=== PATIENT | female | born 1975 | race Caucasian/White ===

== ENCOUNTER 2017-03-27 14:32 | Inpatient (IN) | payer MEDICAID, OTHER ==
[~2017-03-27] VITALS: Ht 170.2 cm; Wt 99.9 kg
[~2017-03-27 14:32] MED LIST: AMLO5TAB2 PO; CELE-19 PO; CELE20TA PO; Flexeril PO; GABA-283 PO; HYDR-3713 PO; HYDR12.55 PO; LINZ290C PO; LISI10TA2 PO; NICOTINE 21MG/24HR 1 EA TRANSDERMAL TD SCH; NORV5TAB PO; PROZ20CA11 PO; SYNT50TA PO; TRAZ50TA4 PO
[2017-03-27] MEDS ORDERED: LISIPOW (15:28)
[2017-03-27] MEDS ORDERED: FLUO20CA9 (15:28)
[2017-03-27] MEDS ORDERED: WELL100T2 PO (15:29)
[2017-03-27 16:32] LABS: MEAN CORPUSCULAR HEMOGLOBIN 32.5 pg (27.0-33.0); MEAN CORPUSCULAR HGB CONC 33.8 g/dl (32.0-36.5); MEAN CORPUSCULAR VOLUME 96.1 fl (80.0-96.0); RED CELL DISTRIBUTION WIDTH 13.8 % (11.5-14.5); WHITE BLOOD COUNT 9.5 K/mm3 (4.0-10.0)
[2017-03-27 16:41] LABS: ALBUMIN 3.9 GM/DL (3.2-5.2); ALBUMIN/GLOBULIN RATIO 1.05 (1.00-1.93); ALKALINE PHOSPHATASE 80 U/L (45-117); ALT/SGPT 23 U/L (12-78); ANION GAP 11 MEQ/L (8-16); AST/SGOT 19 U/L (15-37); BILIRUBIN,DIRECT 0.2 MG/DL (0.0-0.2); BILIRUBIN,TOTAL 0.8 MG/DL (0.2-1.0); BLOOD UREA NITROGEN 9 MG/DL (7-18); CALCIUM LEVEL 8.4 MG/DL (8.5-10.1); CARBON DIOXIDE LEVEL 25 MEQ/L (21-32); CHLORIDE LEVEL 105 MEQ/L (98-107); CREATININE FOR GFR 0.72 MG/DL (0.55-1.02); GLOMERULAR FILTRATION RATE > 60.0 (>58); GLUCOSE, FASTING 92 MG/DL (70-105); POTASSIUM SERUM 3.3 MEQ/L (3.5-5.1); SODIUM LEVEL 141 MEQ/L (136-145); TOTAL PROTEIN 7.6 GM/DL (6.4-8.2)
[2017-03-27] MEDS ORDERED: GABA-282 PO (17:31)
[2017-03-27] MEDS ORDERED: LISI20TA PO (17:31)
[2017-03-27] MEDS ORDERED: ZALE10CA PO (17:31)
[2017-03-27] MEDS ORDERED: FLUO20CA9 PO (17:31)
[2017-03-27] MEDS ORDERED: BUPR100T3 PO (17:31)
[2017-03-27] MEDS ORDERED: METH-107 PO (17:31)
[2017-03-27] MEDS ORDERED: LINZ290C PO (17:31)
[2017-03-27] MEDS ORDERED: ACETAMINOPHEN TAB 650MG DOSE (2X325MG) PO PRN (18:15)
[2017-03-27] MEDS ORDERED: MAALOX 30 ML SUSP *UDC PO PRN (18:15)
[2017-03-27] MEDS ORDERED: MOM 30ML SUSPENSION UDC PO PRN (18:15)
[2017-03-27] MEDS ORDERED: traZODone 50 MG TAB PO PRN (18:15)
[2017-03-27] MEDS ORDERED: cloNIDine 0.2 MG TAB PO ONE (18:30)
[2017-03-27] MEDS ORDERED: ALPRAZolam 0.25 MG TAB PO ONE (19:45)
[2017-03-27] MEDS ORDERED: ALPRAZolam 0.5 MG TAB PO ONE (19:45)
[2017-03-27] MEDS: buPROPion (WELLBUTRIN SR) 100 MG SR TAB PO SCH (21:00)
[2017-03-27 21:25] VITALS: BP 120/78
[2017-03-27] MEDS ORDERED: cloNIDine 0.1 MG TAB PO PRN (23:30)
[2017-03-28 06:36] VITALS: BP 120/75
[2017-03-28] MEDS: FLUoxetine 20 MG CAP PO SCH (08:41)
[2017-03-28] MEDS: buPROPion (WELLBUTRIN SR) 100 MG SR TAB PO SCH ×2 (08:41→21:00)
[2017-03-28] MEDS ORDERED: POTASSIUM CHLORIDE 10 MEQ SR TABLET PO ONE (12:00)
[2017-03-28] MEDS ORDERED: TIZA4CAP3 PO (12:13)
[2017-03-28] MEDS ORDERED: KETO10TAB PO (12:13)
[2017-03-28] MEDS ORDERED: REXU1TAB2 PO (12:13)
[2017-03-28 18:00] VITALS: BP 132/83
[2017-03-28 21:28] LABS: CONTROL LINE UCG INT CTR LINE PRESENT
[2017-03-29 06:51] VITALS: BP 158/96
[2017-03-29] MEDS: FLUoxetine 20 MG CAP PO SCH (08:27)
[2017-03-29] MEDS: buPROPion (WELLBUTRIN SR) 100 MG SR TAB PO SCH ×2 (08:27→21:08)
--- NOTE | 2017-03-29 08:47 | MHHPE ---
DATE OF ADMISSION: 03/27/2017 LEGAL STATUS AT ADMISSION: 9.39 legal status. CHIEF COMPLAINT: "I don't need to be here." HISTORY OF PRESENT ILLNESS: 41-year-old female with history of depression, admitted to our unit on a 9.39 legal status. According to the chart, patient was brought to the emergency department by the [facility] Police. It is stated that she posted on Facebook "I'm gone, Happy Mother's Day alone." The patient's friends were concerned about her and they called the police for her to be evaluated in our emergency department. The patient stated at the emergency department that she was not feeling well and called her ex- "who came to get our son." She denied having any suicidal thought and stated that "I was not planning to hurt myself." Some of the concerns before admission was the fact that her boyfriend "kicked her out on Wednesday," also the fact that she has been off work the last week due to the increased depression and the fact that she was started on a new medication for depression, the fact that she has poor support. She stated that she is not close to her parents or siblings and that her brother killed himself by self-inflicted gunshot wound. Her evaluation in the unit is difficult since patient is angry and frustrated and lost control in my office and started yelling. She expressed her anger, stating "I'm not going to take any medication, I'm not going to speak to anybody." I tried to get some of the symptoms, but she has tendency to deny or minimize any of them. Therefore, at this point, patient is considered not reliable. No support person has been available to take collateral information. During the interview, although she was angry, anxious, frustrated, and labile, there was no evidence of psychotic symptoms, no auditory or visual hallucinations were noted. PAST MEDICAL HISTORY: Patient has been diagnosed with hypertension and herniated disc. PAST PSYCHIATRIC HISTORY: Patient was admitted to our service in July 2015 after an overdose. FAMILY HISTORY: Patient denies any psychiatric family history but it is reported that her brother committed suicide by gunshot wound. SUBSTANCE ABUSE HISTORY: Patient denies any current or past problems with drugs or alcohol. SOCIAL HISTORY: Patient was not cooperative with providing information, however chart review shows that the patient was raised by her father, that her parents were at age 1, that she dropped out of school but then she obtained her GED. As stated above, she recently broke up with her boyfriend. She has been off work due to her depression for several days. She from her in 2012. She has three children and has no legal problems. REVIEW OF SYSTEMS: CONSTITUTIONAL: No weight loss, fever, chills, weakness, or fatigue. HEENT: No visual loss, blurry vision, double vision, or yellow sclerae. No hearing loss, sneezing, congestion, runny nose, or sore throat. CARDIOVASCULAR: No chest pain, chest pressure, chest discomfort, palpitations, or edema. RESPIRATORY: No shortness of breath, cough, or sputum. MUSCULOSKELETAL: Denies muscle, back pain, joint pain, or stiffness. Patient was not fully cooperative with exam. PHYSICAL EXAMINATION: As per physician healthcare administrative assistant. LABORATORY DATA: At admission: CBC was unremarkable, red blood cells of 3.97, MCV of 96.1. CMP showed a potassium of 3.3, calcium of 8.4, rest were unremarkable. test was canceled. Blood alcohol level was negative. MENTAL STATUS EXAMINATION: Patient is dressed in [facility]. Patient is not fully cooperative. She is angry, frustrated, anxious, and labile. Speech is coherent. Has poor eye contact. Mood is depressed and anxious. Affect is labile and restricted. Patient is oriented to time, place, person, and situation. Attention, concentration, and memory are fair. Patient does not have auditory or visual hallucinations. Patient does not have paranoid, persecutory, somatic, grandiose, or jew delusions. Patient is denying any suicidal or homicidal ideation, however she is minimizing in order to be discharged. Judgment and insight are poor. DIAGNOSES: AXIS I: Major depressive disorder. AXIS II: Deferred. AXIS III: Hypertension, herniated disc. INITIAL TREATMENT PLAN: Patient was admitted on a 9.39 legal status. Complete history was obtained. With her permission, family will be contacted and database will be expanded. Her medication regimen will be reviewed and changed accordingly. She will be provided with protected environment. She will be treated with individual, group, and milieu therapies. She will also receive supportive psychoeducation. Discharge planning will commence immediately. Length of stay will be between 5-7 days. Outpatient followup will be strongly recommended. The treatment plan will focus initially on depression, risk for suicide, and poor impulse control.
[2017-03-29] MEDS: LISINOPRIL 20 MG TAB PO SCH (09:00)
[2017-03-29] MEDS: hydroCHLOROthiazide 12.5 MG CAPSULE PO SCH (09:00)
--- NOTE | 2017-03-29 11:59 | HPEPDOC ---
Medical History and Physical Date of Admission March 27, 2017 at 16:47 History and Physical PCP: [facility] (Former[facility]) ATTENDING: Dr. Fuentes Gallegos HPI: 41yoF admitted to [facility] for unspecified depressive disorder, being medically examined today. No acute medical complaints today. Denies any fevers, chills, weakness, fatigue, EUCEDA, CP, SOB, cough, palpitations, abdominal pain, N/V /D or changes in bowel or bladder habits. PMHx: HTN H/O Herniated lumbar disc after fall on ice 2012 chronic pain Fibromyalgia Depression H/O SI Chronic constipation H/O urinary retention, relieved with back surgery. H/O Bradycardia seen by Cardiology in the past. Stress Study unremarkable. H/O Hypothyroidism PSHX: Uterine ablation Hysterectomy Lower back surgery Cystoscopy SOCHX: Resides in: [facility] Marital Status: single Kids: 3 kids Employment: Works at [employer] Tobacco use: Denies ETOH: Denies Illicit Drugs: Denies IV Drug Use: Denies Tattoos done unprofessionally: Denies FAMHX: Mother: Alive, Dementia, DM, HTN Father: Alive, Dementia, HTN Siblings: 1 sister Alive, well Children: Alive, well Unexpected deaths due to medical reasons: None. ROS: As noted in HPI, otherwise 11pt ROS of systems reviewed and unremarkable. Hysterectomy 2 years ago, LMP then. PE: GEN: 39yoF, appears stated age. Well-nourished, well developed. No acute distress. Alert and oriented x 3. Pleasant, interactive. HEENT: Normocephalic, atraumatic. Pupils are equal, round, and reactive to light. Extraocular movements are intact. No nystagmus appreciated. Sclera are nonicteric. Conjunctiva without injection. Nose midline. No facial asymmetry. Moist mucous membranes. Dentition fair. Pharynx pink and moist, no cobblestoning. Neck supple, trachea midline. No lymphadenopathy or thyromegaly appreciated. CHEST: Regular rate and rhythm, +S1, +S2 LUNGS: Clear to auscultation bilaterally. No wheezes, rales, or rhonchi. Breathing appears symmetric and easy. Patient is speaking in full sentences. No accessory muscle use. ABD: Round, soft, non-tender, non-distended. +Bowel sounds throughout. No rebound or guarding. No costovertebral angle tenderness. EXT: Pulses 2+ bilaterally dorsalis pedis and radial. No lower extremity edema appreciated. SKIN: [place], dry, warm. Capillary refill <2sec. No rashes. NEURO: Alert and oriented x 3. Cranial nerves III-XII are intact. No focal deficits appreciated. EKG: pending A&P: 41yoF admitted to [facility] for depressive disorder 1. Psych. Plan per Psychiatry. EKG pending. 2. Chronic constipation. Continue Linzess. 3. Chronic back pain. Patient follows as outpatient with pain management, Dr Cyr. 4. Follow up with PCP. 5. Hypertension. Continue lisinopril 20 mg daily, hydrochlorothiazide 12.5 mg by mouth daily. 6. Chronic pain. Continue Gabapentin 900 mg 3 times a day. Methocarbamol 500 mg 3 times a day as needed. 7. H/O Bradycardia. Stable. HR trend 63-70bpm. 8. Safety aid Cortney present throughout exam. Vital Signs Vital Signs Date Time Temp Pulse Resp B/P (MAP) Pulse Ox O2 Delivery O2 Flow Rate FiO2 03/29/17 07:00 158/96 03/29/17 06:51 97.3 67 18 03/27/17 21:25 95 Room Air Laboratory Data Labs 24H Laboratory Tests 2 03/28/17 21:11: Urine Test NEGATIVE CBC/BMP Item Value Date Time Urine Test NEGATIVE 03/28/17 2111 Item Value Date Time White Blood Count 9.5 K/mm3 03/27/17 1600 Red Blood Count 3.97 M/mm3 L 03/27/17 1600 Hemoglobin 12.9 g/dl 03/27/17 1600 Hematocrit 38.1 % 03/27/17 1600 Mean Corpuscular Volume 96.1 fl H 03/27/17 1600 Mean Corpuscular Hemoglobin 32.5 pg 03/27/17 1600 Mean Corpuscular Hemoglobin Concent 33.8 g/dl 03/27/17 1600 Red Cell Distribution Width 13.8 % 03/27/17 1600 Platelet Count 273 k/mm3 03/27/17 1600 Sodium Level 141 MEQ/L 03/27/17 1600 Potassium Level 3.3 MEQ/L L 03/27/17 1600 Chloride Level 105 MEQ/L 03/27/17 1600 Carbon Dioxide Level 25 MEQ/L 03/27/17 1600 Anion Gap 11 MEQ/L 03/27/17 1600 Blood Urea Nitrogen 9 MG/DL 03/27/17 1600 Creatinine 0.72 MG/DL 03/27/17 1600 Glomerular Filtration Rate > 60.0 03/27/17 1600 Fasting Glucose 92 MG/DL 03/27/17 1600 Calcium Level 8.4 MG/DL L 03/27/17 1600 Total Bilirubin 0.8 MG/DL 03/27/17 1600 Direct Bilirubin 0.2 MG/DL 03/27/17 1600 Aspartate Amino Transf (AST/SGOT) 19 U/L 03/27/17 1600 Alanine Aminotransferase (ALT/SGPT) 23 U/L 03/27/17 1600 Alkaline Phosphatase 80 U/L 03/27/17 1600 Total Protein 7.6 GM/DL 03/27/171599 Albumin 3.9 GM/DL 03/27/171599 Albumin/Globulin Ratio 1.05 03/27/171599 Thyroid Stimulating Hormone (TSH) 2.040 uIU/ML 03/27/17 1600 Home Medications Scheduled (Bupropion HCl Sr) 100 Mg Tab, 200 MG PO DAILY for DEPRESSION (Lisinopril/Hydrochlorothi 20-12.5 mg) 1 Tab Tab, 1 TAB PO DAILY Brexpiprazole (Rexulti) 0.5 Mg Tab, 0.5 MG PO DAILY for DEPRESSION Fluoxetine Hcl (Fluoxetine HCl) 20 Mg Cap, 40 MG PO DAILY Gabapentin (Gabapentin) 300 Mg Cap, 900 MG PO TID Linaclotide Base (Linzess) 290 Mcg Cap, 290 MCG PO DAILY Scheduled PRN (Zaleplon) 10 Mg Cap, 10 MG PO QHS PRN for SLEEP Ketorolac Tromethamine (Ketorolac Tromethamine) 10 Mg Tab, 10 MG PO Q6HP PRN for HEADACHE Methocarbamol (Methocarbamol) 500 Mg Tab, 500 MG PO TID PRN for SPASMS Tizanidine Hydrochloride (Tizanidine HCl) 4 Mg Cap, 4 MG PO TIDP PRN for SPASMS Allergies Coded Allergies: No Known Allergies (Unverified , 07/17/15) Dominique Park March 29, 2017 11:59
--- NOTE | 2017-03-29 14:21 | MHIPNPDOC ---
[facility] Progress Note Progress Note DATE OF SERVICE: 03/29/17 HISTORY: Patient is 41-year-old female with history of depression who was brought into the emergency department by the police after posting on Facebook "I 'm gone, happy Mother's Day alone." Patient also apparently recently underwent psychotropic medication change from outpatient provider, had asked her ex- to warp picker her 14 yo son from her home due to patient reportedly not feeling well, was recently "kicked out" of her boyfriend's house, has been off work for the past week due to increased symptoms of depression, brother committed suicide by way of gunshot, and has limited support. Patient denies having plan or intent to harm self, indicates friends interpretation of Facebook posting was a "taken the wrong way." Patient was last hospitalized [facility] inpatient in July 2015 for suicide attempt via drug overdose. Industrial Insulator met with patient today to assess treatment progress on inpatient unit. Patient remains irritable, becomes hostile toward poem writer, stands up and walks out of assessment prior to completion. Patient refused to take her Prozac and Wellbutrin this morning noting, "I doctor just added another medication because his medications were only partially effective so why should I take those medications affect don't have the other medication here." Industrial Insulator encouraged patient to facilitate the retrieval of medications from home which are not available in the inpatient environment, also encourage patient to take medications which were available to her, patient declines. Patient denies symptoms of anxiety and depression, denies suicidal and homicidal ideation, denies audiovisual hallucinations, denies urge to engage in self-injurious behavior. Patient provides monosyllabic responses, states clearly she is not happy about being in the hospital, denies challenges with sleep and appetite, indicates energy level, concentration and focus are normal. VITAL SIGNS: See below. Elevated, PA is addressing NEW TEST RESULTS: No new results. Hypertension history of herniated lumbar disc after fall in 2013, chronic pain, fibromyalgia, chronic constipation, history of urinary retention, history of bradycardia, seen by cardiology in past, study unremarkable, patient is asymptomatic. History of hypothyroidism Surgical history , uterine ablation, hysterectomy, lower back surgery, cystoscopy Labs on admission indicated elevated MCV and low RBC, potassium, calcium HCG negative EKG pending CURRENT MEDICATIONS: See below. MENTAL STATUS EXAMINATION: 41-year-old female who is uncooperative and irritable , makes poor eye contact, appears disheveled, dressed in hospital clothing, ambulates with steady gait, appears stated age Speech: Is of normal rate, rhythm, volume, coherent, spontaneous Language skills are adequate. Thought processes including: Linear, logical, goal-directed. Thought content: Rational, logical, no tangentiality noted, no paranoia Abstract reasoning, and computation: Appear within normal limits Description of associations: Intact. Description of abnormal or psychotic thoughts: Denies suicidal or homicidal ideation, denies auditory or visual hallucinations, does not appear to be responding to internal stimuli, does not endorse bizarre paranoid ideation, denies any preoccupation with violence or obsessions. Judgment: Poor Insight: Poor Orientation: A and O 3. Recent and remote memory: Appears intact. Attention span and concentration: Adequate. Language: Adequate. Fund of knowledge: Appears adequate. Mood: Not happy that I'm here. Patient appears anxious and depressed Affect: Blunted. DIAGNOSES: Major depressive disorder ASSESSMENT: Patient appears to be adjusting to unit slowly, has attended some groups, isolates to her room at other times, engages in very little socialization with staff or peers, is refusing to take psychotropic medications , and is otherwise being treatment noncompliance, became angry with poem writer during assessment and got up and walked out of the room. Patient has been able to maintain behavioral control, has exhibited no physical aggression, was strongly encouraged to be medication compliant and was offered assistance in making arrangements to have medication from home brought in which is not offered in the inpatient environment. Patient denies current suicidal or homicidal ideation and is able to verbalize how to access supportive services on the unit if needed. We'll continue to encourage patient to take her medications and we'll monitor for compliance and side effects. Will also evaluate patient's safety, resolution of suicidal ideation, discharge readiness. Patient indicates from prepared she would like to discharge back to home and resume outpatient psychotherapy and medication management services. MANAGEMENT PLAN: Encourage patient to consider restarting psychotropic medications in effort to address symptoms Maintain safety precautions Patient to attend groups and participate in unit programming to develop coping strategies Engage patient in discharge planning process and arrange meeting with command to evaluate safe discharge planning when appropriate Patient to follow up with PCM upon discharge TIME SPENT: 35 minutes. Vital Signs Vital Signs Date Time Temp Pulse Resp B/P (MAP) Pulse Ox O2 Delivery O2 Flow Rate FiO2 5/15/17 07:00 158/96 03/29/17 06:51 97.3 67 18 03/27/17 21:25 95 Room Air Laboratory Data 24H Labs Laboratory Tests 2 03/28/17 21:11: Urine Test NEGATIVE Current Medications Current Medications Acetaminophen (Tylenol Tab) 650 mg Q6HP PRN PO HEADACHE or DISCOMFORT; Start at 18:15; Stop 04/26/17 at 18:14 Al Hydrox/Mg Hydrox/Simethicone (Mylanta) 30 ml Q4HP PRN PO HEARTBURN/ INDIGESTION; Start 03/27/17 at 18:15; Stop 04/26/17 at 18:14 Bupropion HCl (Wellbutrin Sr) 100 mg BID PO ; Start 03/27/17 at 21:00; Stop 10/31 at 20:59 Clonidine HCl (Catapres) 0.1 mg Q6HP PRN PO SBP> 150 OR DBP > 95 Last administered on 03/29/17t 07:00; Start 03/27/17 at 23:30; Stop 04/26/17 at 23:29 Fluoxetine HCl (PROzac) 40 mg DAILY PO ; Start 03/28/17 at 09:00; Stop 04/27/17 at 08:59 Gabapentin (Neurontin) 900 mg TID PO ; Start 03/29/17 at 16:00; Stop 04/28/17 at 15:59 Home Med (Med Rec Complete!) ASDIRECTED XX ; Start 03/27/17 at 17:45; Stop at 17:45; Status DC Hydrochlorothiazide (Hydrodiuril) 12.5 mg DAILY PO ; Start 03/29/17 at 09:00; Stop 04/28/17 at 08:59 Lisinopril (Prinivil) 20 mg DAILY PO ; Start 03/29/17 at 09:00; Stop 04/28/17 at 08:59 Magnesium Hydroxide (Milk Of Magnesia) 30 ml DAILYPRN PRN PO CONSTIPATION; Start 03/27/17 at 18:15; Stop 04/26/17 at 18:14 Methocarbamol (Robaxin) 500 mg TID PRN PO SPASMS; Start 03/29/17 at 12:45; Stop 04/28/17 at 12:44 Miscellaneous (Unresolved Patient Own Med Order) SEE LABEL COMMENTS UNRESOLVED XX ; Start 03/29/17 at 00:01; Stop 04/28/17 at 00:00 Nicotine (Nicoderm Cq 21mg) 1 patch DAILY TD ; Start 03/27/17 at 09:00; Stop at 23:57; Status DC Patient Own Medication (Patient'S Own Med) 1 ea DAILY PO ; Start 03/30/17 at 09: 00; Stop 04/29/17 at 08:59; Status UNV Trazodone HCl (Desyrel) 50 mg QHSP PRN PO INSOMNIA; Start 03/27/17 at 18:15; Stop 04/26/17 at 18:14 Allergies Coded Allergies: No Known Allergies (Unverified , 07/17/15) Cammie Aragon March 29, 2017 14:21
[2017-03-29] MEDS: GABAPENTIN 300 MG CAP PO SCH ×2 (16:00→21:09)
[2017-03-29] MEDS: METHOCARBAMOL 500 MG TAB PO PRN (17:49)
--- NOTE | 2017-03-29 18:03 | ECGEPIP ---
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
[2017-03-30 06:32] VITALS: BP 145/85
[2017-03-30] MEDS: FLUoxetine 20 MG CAP PO SCH (08:27)
[2017-03-30] MEDS: LISINOPRIL 20 MG TAB PO SCH (08:27)
[2017-03-30] MEDS: buPROPion (WELLBUTRIN SR) 100 MG SR TAB PO SCH ×2 (08:27→21:44)
[2017-03-30] MEDS: GABAPENTIN 300 MG CAP PO SCH ×3 (08:27→21:44)
[2017-03-30] MEDS: hydroCHLOROthiazide 12.5 MG CAPSULE PO SCH (08:28)
[2017-03-30 11:40] VITALS: BP 125/73
[2017-03-30] MEDS: METHOCARBAMOL 500 MG TAB PO PRN (11:50)
--- NOTE | 2017-03-30 14:26 | MHIPNPDOC ---
[facility] Progress Note Progress Note DATE OF SERVICE: 03/30/17 HISTORY: Patient is 41-year-old female with history of depression who was brought into the emergency department by the police after posting on Facebook "I 'm gone, happy Mother's Day alone." Patient also apparently recently underwent psychotropic medication change from outpatient provider, had asked her ex- to supervisor picking crew her 14 yo son from her home due to patient reportedly not feeling well, was recently "kicked out" of her boyfriend's house, has been off work for the past week due to increased symptoms of depression, brother committed suicide by way of gunshot, and has limited support. Patient denies having plan or intent to harm self, indicates friends interpretation of Facebook posting was a "taken the wrong way." Patient was last hospitalized [facility] inpatient in July 2015 for suicide attempt via drug overdose. Filter Press Operator met with patient today to assess treatment progress on inpatient unit. Patient peers less irritable today, is somewhat more engageable, has restarted taking Prozac and Wellbutrin and patient's Rexulti has been brought in from home and restarted. Patient indicates current medication regimen is effective and she denies medication side effects. Filter Press Operator reported improvement to symptoms of anxiety and depression, denied suicidal and homicidal ideation, denied audiovisual hallucinations, denied urge to engage in self-injurious behavior. Patient describes sleep is "fair," notes she utilizes Sonata at home, makes request for PRN sleep aid while in hospital, states she will not utilize trazodone. Patient reports improvement in energy level, denies challenges with appetite or concentration or focus. Patient indicates pain medication is also been brought in from home, is working with nursing on getting in order to use her own medication well in the hospital. Patient has been in communication with children who live in [place], reports some improvement to support system. I-Stop review completed 03/30/17. VITAL SIGNS: See below. Elevated at times, PA is addressing NEW TEST RESULTS: No new results. Hypertension history of herniated lumbar disc after fall in 2012, chronic pain, fibromyalgia, chronic constipation, history of urinary retention, history of bradycardia, seen by cardiology in past, study unremarkable, patient is asymptomatic. History of hypothyroidism Surgical history , uterine ablation, hysterectomy, lower back surgery, cystoscopy Labs on admission indicated elevated MCV and low RBC, potassium, calcium HCG negative 03/29/17 EKG SINUS BRADYCARDIA WITH SINUS ARRHYTHMIA NONSPECIFIC T-WAVE ABNORMALITY NO PRIOR, PA aware CURRENT MEDICATIONS: See below. MENTAL STATUS EXAMINATION: 41-year-old female who is more cooperative today, less irritable, makes poor eye contact, appears less disheveled, dressed in hospital clothing, ambulates with steady gait, appears stated age Speech: Is of normal rate, rhythm, volume, coherent, spontaneous Language skills are adequate. Thought processes including: Linear, logical, goal-directed. Thought content: Rational, logical, no tangentiality noted, no paranoia Abstract reasoning, and computation: Appear within normal limits Description of associations: Intact. Description of abnormal or psychotic thoughts: Denies suicidal or homicidal ideation, denies auditory or visual hallucinations, does not appear to be responding to internal stimuli, does not endorse bizarre paranoid ideation, denies any preoccupation with violence or obsessions. Judgment: Limited Insight: Limited Orientation: A and O 3. Recent and remote memory: Appears intact. Attention span and concentration: Adequate. Language: Adequate. Fund of knowledge: Appears adequate. Mood: "Ok, I'm not very depressed and I want to be discharged." Patient appears anxious and depressed, no mood lability noted Affect: Blunted. DIAGNOSES: Major depressive disorder ASSESSMENT: Patient appears to be adjusting to unit, has been attending groups, engages selectively, is participating somewhat in unit programming. Patient has now restarted taking psychotropic medications, Rexulti has been brought in by patient's son, and she is requesting a trial of hydroxyzine to address sleep challenges while in the inpatient environment, states she takes Sonata at home. Patient has been able to maintain behavioral control, has exhibited no physical aggression, was again strongly encouraged to remain medication compliant. Patient denies irritability, agitation, mood lability, indicates current medication regimen is effective and denies medication side effects. Patient denies current suicidal or homicidal ideation and is able to verbalize how to access supportive services on the unit if needed. Will provide patient with hydroxyzine PRN to address nighttime symptoms of insomnia/anxiety, patint may use own med entered for Rexulti. Will monitor patient's response to medications and for medication side effects. Will also evaluate patient's safety, resolution of suicidal ideation, discharge readiness. Patient indicates when prepared she would like to discharge back to home and resume outpatient psychotherapy and medication management services through [facility]. MANAGEMENT PLAN: Continue Prozac 40 mg po q am, Rexulti 0.5 mg po daily, Wellbutrin SR 100 mg po BID. Initiate hydroxyzine 50 mg po q hs PRN insomnia/ anxiety. Maintain safety precautions Patient to attend groups and participate in unit programming to develop coping strategies Engage patient in discharge planning process and arrange meeting with command to evaluate safe discharge planning when appropriate Patient to follow up with PCM upon discharge TIME SPENT: 35 minutes Vital Signs Vital Signs Date Time Temp Pulse Resp B/P (MAP) Pulse Ox O2 Delivery O2 Flow Rate FiO2 03/30/17 11:40 98.1 60 18 125/73 (90) 03/27/17 21:25 95 Room Air Current Medications Current Medications Acetaminophen (Tylenol Tab) 650 mg Q6HP PRN PO HEADACHE or DISCOMFORT; Start at 18:15; Stop 04/26/17 at 18:14 Al Hydrox/Mg Hydrox/Simethicone (Mylanta) 30 ml Q4HP PRN PO HEARTBURN/ INDIGESTION; Start 03/27/17 at 18:15; Stop 04/26/17 at 18:14 Bupropion HCl (Wellbutrin Sr) 100 mg BID PO Last administered on 03/30/17 08: 27; Start 03/27/17 at 21:00; Stop 04/26/17 at 20:59 Clonidine HCl (Catapres) 0.1 mg Q6HP PRN PO SBP> 150 OR DBP > 95 Last administered on 03/29/17 07:00; Start 03/27/17 at 23:30; Stop 04/26/17 at 23:29 Fluoxetine HCl (PROzac) 40 mg DAILY PO Last administered on 03/30/17 08:27; Start 03/28/17 at 09:00; Stop 04/27/17 at 08:59 Gabapentin (Neurontin) 900 mg TID PO Last administered on 03/30/17 08:27; Start 03/29/17 at 16:00; Stop 04/28/17 at 15:59 Home Med (Med Rec Complete!) ASDIRECTED XX ; Start 03/27/17 at 17:45; Stop at 17:45; Status DC Hydrochlorothiazide (Hydrodiuril) 12.5 mg DAILY PO Last administered on 08:28; Start 03/29/17 at 09:00; Stop 04/28/17 at 08:59 Hydroxyzine HCl (Atarax) 50 mg QHSP PRN PO insomnia/anxiety; Start 03/30/17 at 13:30; Stop 04/29/17 at 13:29 Lisinopril (Prinivil) 20 mg DAILY PO Last administered on 03/30/17 08:27; Start 03/29/17 at 09:00; Stop 04/28/17 at 08:59 Magnesium Hydroxide (Milk Of Magnesia) 30 ml DAILYPRN PRN PO CONSTIPATION; Start 03/27/17 at 18:15; Stop 04/26/17 at 18:14 Methocarbamol (Robaxin) 500 mg TID PRN PO SPASMS Last administered on 11:50; Start 03/29/17 at 12:45; Stop 04/28/17 at 12:44 Miscellaneous (Unresolved Patient Own Med Order) SEE LABEL COMMENTS UNRESOLVED XX ; Start 03/29/17 at 00:01; Stop 03/30/17 at 10:54; Status DC Nicotine (Nicoderm Cq 21mg) 1 patch DAILY TD ; Start 03/27/17 at 09:00; Stop at 23:57; Status DC Patient Own Medication (Patient'S Own Med) 1 capsule DAILY PO ; Start 03/30/17 at 09:00; Stop 03/30/17 at 11:01; Status DC Patient Own Medication (Patient'S Own Med) 1 capsule DAILY@0600 PO Last administered on 03/30/17 12:30; Start 03/30/17 at 06:00; Stop 04/29/17 at 05:59 Patient Own Medication (Patient'S Own Med) Rexulti 0.5 mg po q day DAILY PO ; Start 03/30/17 at 09:00; Stop 04/29/17 at 08:59 Trazodone HCl (Desyrel) 50 mg QHSP PRN PO INSOMNIA; Start 03/27/17 at 18:15; Stop 03/30/17 at 13:25; Status DC Allergies Coded Allergies: No Known Allergies (Unverified , 07/17/15) Cammie Aragon March 30, 2017 14:26
[2017-03-30] MEDS: REXULTI PO SCH (14:30)
[2017-03-30 18:11] VITALS: BP 129/78
[2017-03-30] MEDS: hydrOXYzine 50 MG TAB PO PRN (21:44)
[2017-03-31 06:45] VITALS: BP 124/83
[2017-03-31] MEDS: LISINOPRIL 20 MG TAB PO SCH (08:27)
[2017-03-31] MEDS: hydroCHLOROthiazide 12.5 MG CAPSULE PO SCH (08:27)
[2017-03-31] MEDS: buPROPion (WELLBUTRIN SR) 100 MG SR TAB PO SCH ×2 (08:27→21:19)
[2017-03-31] MEDS: FLUoxetine 20 MG CAP PO SCH (08:27)
[2017-03-31] MEDS: GABAPENTIN 300 MG CAP PO SCH ×3 (08:27→21:19)
[2017-03-31] MEDS: REXULTI PO SCH (08:28)
--- NOTE | 2017-03-31 09:11 | MHIPNPDOC ---
[facility] Progress Note Progress Note DATE OF SERVICE: 03/31/17 HISTORY: Patient is 41-year-old female with history of depression who was brought into the emergency department by the police after posting on Facebook "I 'm gone, happy Mother's Day alone." Patient also apparently recently underwent psychotropic medication change from outpatient provider, had asked her ex- to picker machine operator her 14 yo son from her home due to patient reportedly not feeling well, was recently "kicked out" of her boyfriend's house, has been off work for the past week due to increased symptoms of depression, brother committed suicide by way of gunshot, and has limited support. Patient denies having plan or intent to harm self, indicates friends interpretation of Facebook posting was a "taken the wrong way." Patient was last hospitalized [facility] inpatient in July 2015 for suicide attempt via drug overdose. Outer Diameter Grinder met with patient today to assess treatment progress on inpatient unit. Patient appears less irritable today, is more engageable, initiates some conversation, has been medication compliant and indicates recent start of Rexulti is helping to improve mood and reduce symptoms of depression and anxiety , has now had 2 doses, denies medication side effects. Patient reports current anxiety level 2/10, depression 2/10, denies suicidal and homicidal ideation, denies audiovisual hallucinations, and denies urge to engage in self-injurious behavior. Patient reports improvement to sleep, indicates hydroxyzine was effective and denies nightmares symptoms. Patient reports improvement in energy level, denies challenges with appetite or concentration or focus. Patient has requested lidocaine patch in effort to address pain, nursing is aware and is pursuing with PA. Patient has been in communication with children who live in [place], adds a friend visited her in hospital last night, indicates visit went well and reports ongoing improvement to support system. I-Stop review completed 03/30/17. VITAL SIGNS: See below. Elevated at times, PA is addressing NEW TEST RESULTS: No new results. Hypertension history of herniated lumbar disc after fall in 2012, chronic pain, fibromyalgia, chronic constipation, history of urinary retention, history of bradycardia, seen by cardiology in past, study unremarkable, patient is asymptomatic. History of hypothyroidism Surgical history , uterine ablation, hysterectomy, lower back surgery, cystoscopy Labs on admission indicated elevated MCV and low RBC, potassium, calcium HCG negative 03/29/17 EKG SINUS BRADYCARDIA WITH SINUS ARRHYTHMIA NONSPECIFIC T-WAVE ABNORMALITY NO PRIOR, PA aware CURRENT MEDICATIONS: See below. MENTAL STATUS EXAMINATION: 41-year-old female who is more cooperative today, less irritable today, makes limited eye contact, appears less disheveled, dressed in hospital clothing, ambulates with steady gait and is more energetic today, appears stated age Speech: Is of normal rate, rhythm, volume, coherent, spontaneous Language skills Adequate. Thought processes including: Linear, logical, goal-directed. Thought content: Rational, logical, no tangentiality noted, no paranoia Abstract reasoning, and computation: Appear within normal limits Description of associations: Intact. Description of abnormal or psychotic thoughts: Denies suicidal or homicidal ideation, denies auditory or visual hallucinations, does not appear to be responding to internal stimuli, does not endorse bizarre paranoid ideation, denies any preoccupation with violence or obsessions. Judgment: Limited Insight: Limited, some improvement noted Orientation: A and O 3. Recent and remote memory: Appears intact. Attention span and concentration: Adequate. Language: Adequate. Fund of knowledge: Appears adequate. Mood: "Ok, I'm not as depressed." Patient continues to appear anxious and depressed, no mood lability noted Affect: Blunted, brightens 1, congruent with affect DIAGNOSES: Major depressive disorder, recurrent ASSESSMENT: Patient continues to adjust to unit, has been attending groups, engages selectively, is participating in unit programming. Patient has restarted taking psychotropic medications, Rexulti was brought in by patient's son, has been medication compliant. Patient indicates hydroxyzine to address sleep challenges is effective, denies medication side effects. Patient reports reduced irritability, denies agitation and mood lability, has been able to maintain behavioral control, has exhibited no physical aggression, was again strongly encouraged to remain medication compliant. Patient indicates current medication regimen is effective and denies need for dosing adjustment. Patient denies current suicidal or homicidal ideation and is able to verbalize how to access supportive services on the unit if needed. Will and tinea to monitor patient's response to medications and for medication side effects. Will also evaluate patient's safety, resolution of suicidal ideation, discharge readiness. Patient indicates when prepared she would like to discharge back to home and resume outpatient psychotherapy and medication management services through [facility]. MANAGEMENT PLAN: Continue Prozac 40 mg po q am, Rexulti 0.5 mg po daily, Wellbutrin SR 100 mg po BID, and hydroxyzine 50 mg po q hs PRN insomnia/anxiety. Maintain safety precautions Patient to attend groups and participate in unit programming to develop coping strategies Engage patient in discharge planning process and arrange meeting with command to evaluate safe discharge planning when appropriate Patient to follow up with PCM upon discharge TIME SPENT: 35 minutes Vital Signs Vital Signs Date Time Temp Pulse Resp B/P (MAP) Pulse Ox O2 Delivery O2 Flow Rate FiO2 03/31/17 08:27 137/79 03/31/17 06:45 97.8 65 16 03/27/17 21:25 95 Room Air Current Medications Current Medications Acetaminophen (Tylenol Tab) 650 mg Q6HP PRN PO HEADACHE or DISCOMFORT; Start at 18:15; Stop 04/26/17 at 18:14 Al Hydrox/Mg Hydrox/Simethicone (Mylanta) 30 ml Q4HP PRN PO HEARTBURN/ INDIGESTION; Start 03/27/17 at 18:15; Stop 04/26/17 at 18:14 Bupropion HCl (Wellbutrin Sr) 100 mg BID PO Last administered on 03/31/17 08: 27; Start 03/27/17 at 21:00; Stop 04/26/17 at 20:59 Clonidine HCl (Catapres) 0.1 mg Q6HP PRN PO SBP> 150 OR DBP > 95 Last administered on 03/29/17 07:00; Start 03/27/17 at 23:30; Stop 04/26/17 at 23:29 Fluoxetine HCl (PROzac) 40 mg DAILY PO Last administered on 03/31/17 08:27; Start 03/28/17 at 09:00; Stop 04/27/17 at 08:59 Gabapentin (Neurontin) 900 mg TID PO Last administered on 03/31/17 08:27; Start 03/29/17 at 16:00; Stop 04/28/17 at 15:59 Home Med (Med Rec Complete!) ASDIRECTED XX ; Start 03/27/17 at 17:45; Stop at 17:45; Status DC Hydrochlorothiazide (Hydrodiuril) 12.5 mg DAILY PO Last administered on 08:27; Start 03/29/17 at 09:00; Stop 04/28/17 at 08:59 Hydroxyzine HCl (Atarax) 50 mg QHSP PRN PO insomnia/anxiety Last administered on 03/30/17 21:44; Start 03/30/17 at 13:30; Stop 04/29/17 at 13:29 Lisinopril (Prinivil) 20 mg DAILY PO Last administered on 03/31/17 08:27; Start 03/29/17 at 09:00; Stop 04/28/17 at 08:59 Magnesium Hydroxide (Milk Of Magnesia) 30 ml DAILYPRN PRN PO CONSTIPATION; Start 03/27/17 at 18:15; Stop 04/26/17 at 18:14 Methocarbamol (Robaxin) 500 mg TID PRN PO SPASMS Last administered on 11:50; Start 03/29/17 at 12:45; Stop 04/28/17 at 12:44 Miscellaneous (Unresolved Patient Own Med Order) SEE LABEL COMMENTS UNRESOLVED XX ; Start 03/29/17 at 00:01; Stop 03/30/17 at 10:54; Status DC Nicotine (Nicoderm Cq 21mg) 1 patch DAILY TD ; Start 03/27/17 at 09:00; Stop at 23:57; Status DC Patient Own Medication (Patient'S Own Med) 1 capsule DAILY PO ; Start 03/30/17 at 09:00; Stop 03/30/17 at 11:01; Status DC Patient Own Medication (Patient'S Own Med) 1 capsule DAILY@0600 PO Last administered on 03/31/17 06:14; Start 03/30/17 at 06:00; Stop 04/29/17 at 05:59 Patient Own Medication (Patient'S Own Med) Rexulti 0.5 mg po q day DAILY PO Last administered on 03/31/17 08:28; Start 03/30/17 at 09:00; Stop 04/29/17 at 08:59 Trazodone HCl (Desyrel) 50 mg QHSP PRN PO INSOMNIA; Start 03/27/17 at 18:15; Stop 03/30/17 at 13:25; Status DC Allergies Coded Allergies: No Known Allergies (Unverified , 07/17/15) Cammie Aragon March 31, 2017 09:11
[2017-03-31 12:03] VITALS: BP 135/76
[2017-03-31] MEDS: METHOCARBAMOL 500 MG TAB PO PRN (17:27)
[2017-03-31 18:04] VITALS: BP 140/78
[2017-03-31] MEDS: LIDOCAINE 5% (LIDODERM) PATCH TD SCH (21:19)
[2017-03-31] MEDS: hydrOXYzine 50 MG TAB PO PRN (21:19)
[2017-03-31 21:41] VITALS: BP 132/80
[2017-04-01 07:00] VITALS: BP 148/86
[2017-04-01] MEDS: LISINOPRIL 20 MG TAB PO SCH (09:12)
[2017-04-01] MEDS: buPROPion (WELLBUTRIN SR) 100 MG SR TAB PO SCH ×2 (09:12→20:22)
[2017-04-01] MEDS: GABAPENTIN 300 MG CAP PO SCH ×3 (09:12→20:22)
[2017-04-01] MEDS: FLUoxetine 20 MG CAP PO SCH (09:12)
[2017-04-01] MEDS: hydroCHLOROthiazide 12.5 MG CAPSULE PO SCH (09:12)
[2017-04-01] MEDS: REXULTI PO SCH (09:13)
[2017-04-01] MEDS: **NOTE PATIENT COMMENT** MISC XX SCH (09:15)
[2017-04-01] MEDS: METHOCARBAMOL 500 MG TAB PO PRN ×2 (11:52→20:22)
[2017-04-01 12:00] VITALS: BP 141/81
[2017-04-01 18:00] VITALS: BP 141/83
--- NOTE | 2017-04-01 18:41 | MHIPNPDOC ---
[facility] Progress Note Progress Note DATE OF SERVICE: 04/01/17 HISTORY: Patient is 41-year-old female with history of depression who was brought into the emergency department by the police after posting on Facebook "I 'm gone, happy Mother's Day alone." Patient also apparently recently underwent psychotropic medication change from outpatient provider, had asked her ex- to brick picker her 14 yo son from her home due to patient reportedly not feeling well, was recently "kicked out" of her boyfriend's house, has been off work for the past week due to increased symptoms of depression, brother committed suicide by way of gunshot, and has limited support. Patient denies having plan or intent to harm self, indicates friends interpretation of Facebook posting was a "taken the wrong way." Patient was last hospitalized [facility] inpatient in July 2015 for suicide attempt via drug overdose. Imaging Services Director met with patient today to assess treatment progress on inpatient unit. Patient appears irritable today related to being in hospital but is engageable, makes improved eye contact, initiates conversation though angrily to express dissatisfaction with care while in hospital. Patient is refusing to sign an DEANGELO to have outpatient provider contacted to arrange follow-up treatment, indicates she is unhappy due to not receiving lidocaine patch in timely manner, rachana underwriter for hospital not providing Rexulty and Sonata, indicates unit programming is "worthless." Patient remains medication compliant and indicates recent start of Rexulti as adjunct to Wellbutrin and Prozac is helping to improve mood and reduce symptoms of depression and anxiety, has now had 3 doses , denies medication side effects. Patient denies symptoms of anxiety and depression, denies suicidal and homicidal ideation, denies audiovisual hallucinations, and denies urge to engage in self-injurious behavior. Patient reiterates that hydroxyzine is effective for sleep, denies need for alternate sleep aid, indicates she wants to continue taking hydroxyzine for sleep, denies nightmares. Patient reports ongoing improvement energy level, denies challenges with appetite or concentration and focus. I-Stop review completed 03/30/17. VITAL SIGNS: See below. Elevated at times, PA is addressing NEW TEST RESULTS: No new results. Hypertension history of herniated lumbar disc after fall in 2013, chronic pain, fibromyalgia, chronic constipation, history of urinary retention, history of bradycardia, seen by cardiology in past, study unremarkable, patient is asymptomatic. History of hypothyroidism Surgical history , uterine ablation, hysterectomy, lower back surgery, cystoscopy Labs on admission indicated elevated MCV and low RBC, potassium, calcium HCG negative 03/29/17 EKG SINUS BRADYCARDIA WITH SINUS ARRHYTHMIA NONSPECIFIC T-WAVE ABNORMALITY NO PRIOR, PA aware CURRENT MEDICATIONS: See below. MENTAL STATUS EXAMINATION: 41-year-old female who is irritable but engageable today, makes improved eye contact, appears less disheveled, dressed in own clothing, ambulates with steady gait and is more energetic today, appears stated age Speech: Is of normal rate, rhythm, volume, coherent, spontaneous Language skills Adequate. Thought processes including: Linear, logical, goal-directed. Thought content: Rational, logical, no tangentiality noted, no paranoia Abstract reasoning, and computation: Appear within normal limits Description of associations: Intact. Description of abnormal or psychotic thoughts: Denies suicidal or homicidal ideation, denies auditory or visual hallucinations, does not appear to be responding to internal stimuli, does not endorse bizarre paranoid ideation, denies any preoccupation with violence or obsessions. Judgment: Limited Insight: Limited, some improvement noted Orientation: A and O 3. Recent and remote memory: Appears intact. Attention span and concentration: Adequate. Language: Adequate. Fund of knowledge: Appears adequate. Mood: "I feel fine." Patient appears irritable due to still being in the hospital, denies experiencing anxiety or depression Affect: Blunted DIAGNOSES: Major depressive disorder, recurrent ASSESSMENT: Patient continues to adjust to unit, has been attending groups, engages selectively, is participating in unit programming. Patient has been medication compliant, Rexulti was brought in by patient's son, and patient now has lidocaine patch. Patient indicates hydroxyzine to address sleep challenges is effective, denies medication side effects. Other than dissatisfaction with services provided by hospital, patient reports reduced irritability, denies agitation or mood lability, has been able to maintain behavioral control, has exhibited no physical aggression. Patient was again strongly encouraged to remain medication compliant. Patient indicates current medication regimen is effective and denies need for dosing adjustment. Patient denies current suicidal or homicidal ideation and is able to verbalize how to access supportive services on the unit if needed. Will continue to monitor patient's response to medications and for medication side effects. Will also evaluate patient's safety and discharge readiness. Patient indicates when prepared she would like to discharge back to home and resume outpatient psychotherapy and medication management services through [facility] is currently refusing case management services. Patient is aware discharge is tentatively planned for tomorrow. MANAGEMENT PLAN: Continue Prozac 40 mg po q am, Rexulti 0.5 mg po daily, Wellbutrin SR 100 mg po BID, and hydroxyzine 50 mg po q hs PRN insomnia/anxiety. Maintain safety precautions Patient to attend groups and participate in unit programming to develop coping strategies Engage patient in discharge planning process and arrange meeting with command to evaluate safe discharge planning when appropriate Patient to follow up with PCM upon discharge TIME SPENT: 35 minutes Vital Signs Vital Signs Date Time Temp Pulse Resp B/P (MAP) Pulse Ox O2 Delivery O2 Flow Rate FiO2 04/01/17 12:00 98.4 71 16 141/81 (101) 03/27/17 21:25 95 Room Air Current Medications Current Medications Acetaminophen (Tylenol Tab) 650 mg Q6HP PRN PO HEADACHE or DISCOMFORT; Start at 18:15; Stop 04/26/17 at 18:14 Al Hydrox/Mg Hydrox/Simethicone (Mylanta) 30 ml Q4HP PRN PO HEARTBURN/ INDIGESTION; Start 03/27/17 at 18:15; Stop 04/26/17 at 18:14 Bupropion HCl (Wellbutrin Sr) 100 mg BID PO Last administered on 04/01/17 09: 12; Start 03/27/17 at 21:00; Stop 04/26/17 at 20:59 Clonidine HCl (Catapres) 0.1 mg Q6HP PRN PO SBP> 150 OR DBP > 95 Last administered on 03/29/17 07:00; Start 03/27/17 at 23:30; Stop 04/26/17 at 23:29 Fluoxetine HCl (PROzac) 40 mg DAILY PO Last administered on 04/01/17 09:12; Start 03/28/17 at 09:00; Stop 04/27/17 at 08:59 Gabapentin (Neurontin) 900 mg TID PO Last administered on 04/01/17 16:27; Start 03/29/17 at 16:00; Stop 04/28/17 at 15:59 Home Med (Med Rec Complete!) ASDIRECTED XX ; Start 03/27/17 at 17:45; Stop at 17:45; Status DC Hydrochlorothiazide (Hydrodiuril) 12.5 mg DAILY PO Last administered on 09:12; Start 03/29/17 at 09:00; Stop 04/28/17 at 08:59 Hydroxyzine HCl (Atarax) 50 mg QHSP PRN PO insomnia/anxiety Last administered on 03/31/17 21:19; Start 03/30/17 at 13:30; Stop 04/29/17 at 13:29 Lidocaine (Lidoderm Patch) 2 patch DAILY@2100 TD Last administered on 21:19; Start 03/31/17 at 21:00; Stop 04/30/17 at 20:59 Lisinopril (Prinivil) 20 mg DAILY PO Last administered on 04/01/17 09:12; Start 03/29/17 at 09:00; Stop 04/28/17 at 08:59 Magnesium Hydroxide (Milk Of Magnesia) 30 ml DAILYPRN PRN PO CONSTIPATION; Start 03/27/17 at 18:15; Stop 04/26/17 at 18:14 Methocarbamol (Robaxin) 500 mg TID PRN PO SPASMS Last administered on 11:52; Start 03/29/17 at 12:45; Stop 04/28/17 at 12:44 Miscellaneous (Unresolved Patient Own Med Order) SEE LABEL COMMENTS UNRESOLVED XX ; Start 03/29/17 at 00:01; Stop 03/30/17 at 10:54; Status DC Nicotine (Nicoderm Cq 21mg) 1 patch DAILY TD ; Start 03/27/17 at 09:00; Stop at 23:57; Status DC Non-Formulary Medication ( See Comment Field Below ) REMOVE LIDODERM PATCH DAILY@0900 XX Last administered on 04/01/17 09:15; Start 04/01/17 at 09:00; Stop 05/01/17 at 08:59 Patient Own Medication (Patient'S Own Med) 1 capsule DAILY PO ; Start 03/30/17 at 09:00; Stop 03/30/17 at 11:01; Status DC Patient Own Medication (Patient'S Own Med) 1 capsule DAILY@0600 PO Last administered on 04/01/17 05:54; Start 03/30/17 at 06:00; Stop 04/29/17 at 05:59 Patient Own Medication (Patient'S Own Med) Rexulti 0.5 mg po q day DAILY PO Last administered on 04/01/17 09:13; Start 03/30/17 at 09:00; Stop 04/29/17 at 08:59 Trazodone HCl (Desyrel) 50 mg QHSP PRN PO INSOMNIA; Start 03/27/17 at 18:15; Stop 03/30/17 at 13:25; Status DC Allergies Coded Allergies: No Known Allergies (Unverified , 07/17/15) Cammie Aragon April 01, 2017 18:41
[2017-04-01] MEDS: LIDOCAINE 5% (LIDODERM) PATCH TD SCH (20:22)
[2017-04-01 20:23] VITALS: BP 140/90
[2017-04-01] MEDS: hydrOXYzine 50 MG TAB PO PRN (22:49)
[2017-04-02 06:30] VITALS: BP 140/106
[2017-04-02] MEDS: buPROPion (WELLBUTRIN SR) 100 MG SR TAB PO SCH (08:39)
[2017-04-02] MEDS: FLUoxetine 20 MG CAP PO SCH (08:39)
[2017-04-02 08:40] VITALS: BP 166/94
[2017-04-02] MEDS: LISINOPRIL 20 MG TAB PO SCH (08:40)
[2017-04-02] MEDS: hydroCHLOROthiazide 12.5 MG CAPSULE PO SCH (08:40)
[2017-04-02] MEDS: GABAPENTIN 300 MG CAP PO SCH (08:40)
[2017-04-02] MEDS: REXULTI PO SCH (08:41)
[2017-04-02] MEDS: **NOTE PATIENT COMMENT** MISC XX SCH (08:42)
--- NOTE | 2017-04-02 10:29 | MHDSPDOC ---
[facility] Discharge Summary Discharge Summary DATE OF ADMISSION: March 27, 2017 at 16:47 DATE OF DISCHARGE: April 02, 2017 HISTORY: Patient is 41-year-old female with history of depression, admitted to our unit on a 9.39 legal status. According to the chart, patient was brought to the emergency department by the [facility] Police. It is stated that she posted on Facebook "I'm gone, Happy Mother's Day alone." The patient's friends were concerned about her and they called the police for her to be evaluated in our emergency department. The patient stated at the emergency department that she was not feeling well and called her ex- "who came to get our son." She denied having any suicidal thought and stated that "I was not planning to hurt myself." Some of the concerns before admission was the fact that her boyfriend "kicked her out on Wednesday," also the fact that she has been off work the last week due to the increased depression and the fact that she was started on a new medication for depression, the fact that she has poor support. She stated that she is not close to her parents or siblings and that her brother killed himself by self-inflicted gunshot wound. Her evaluation on the unit was difficult since patient was angry and frustrated and lost control in geodetic survey director' s office and started yelling. She expressed her anger, stating "I'm not going to take any medication, I'm not going to speak to anybody." Director Of Direct Marketing tried to assess symptoms, but patient had tendency to deny or minimize any of them. Therefore, at this point, patient is considered not reliable. No support person has been available to take collateral information. During the interview, although she was angry, anxious, frustrated, and labile, there was no evidence of psychotic symptoms, no auditory or visual hallucinations were noted. PAST PSYCHIATRIC HISTORY: Patient was admitted to our service in July 2015 after an intentional overdose. MEDICAL HISTORY: Hypertension history of herniated lumbar disc after fall in 2012, chronic pain, fibromyalgia, chronic constipation, history of urinary retention, history of bradycardia, seen by cardiology in past, study unremarkable, patient is asymptomatic. History of hypothyroidism Surgical history , uterine ablation, hysterectomy, lower back surgery, cystoscopy Labs on admission indicated elevated MCV and low RBC, potassium, calcium HCG negative 03/29/17 EKG SINUS BRADYCARDIA WITH SINUS ARRHYTHMIA NONSPECIFIC T-WAVE ABNORMALITY NO PRIOR, PA made aware FAMILY HISTORY: Patient denies any psychiatric family history but it is reported that her brother committed suicide by gunshot wound. SUBSTANCE ABUSE HISTORY: Patient denies any current or past problems with drugs or alcohol. SOCIAL HISTORY: Patient was not cooperative with providing information, however chart review shows that the patient was raised by her father, that her parents were at age 1, that she dropped out of school but then she obtained her GED. As stated above, she recently broke up with her boyfriend. She has been off work due to her depression for several days. She from her in 2012. She has three children and has no legal problems. TREATMENT PROGRESS ON UNIT: Patient has slowly adjusted to unit, has been visible and has been attending groups, engages selectively with staff and peers , has presented with no behavior management challenges. Patient insisted her admission was the result of a "misunderstanding," and refused psychotropic medications for the first few days of inpatient treatment, has since been medication compliant and verbalizes insight as to impact of behavior and events which led to current hospitalization. Per patient report, Rexulti was added to augment Wellbutrin and Prozac just prior to admission, has now been taking regularly and indicates medication regimen is effective and she denies medication side effects and has consistently denied need for dosing adjustment. Patient indicates she does not need hydroxyzine for home use, has reported improvement to sleep without use of Sonata, has been encouraged to discontinue use of Sonata at home due to risks associated with regular/long-term use of medication, has been educated on ways to properly disposes of medication. Patient denies symptoms of anxiety and depression, denies suicidal and homicidal ideation, denies auditory or visual hallucinations, denies urge to engage in self-injurious behavior. Patient reports improvement in energy level, denies challenges with appetite or concentration and focus, denies symptoms of irritability, agitation, impulsivity, or mood lability. Patient is able to effectively engage in the safety planning process and verbalizes concrete strategies for mitigating symptoms of anxiety, depression, or suicidal ideation should they reemerge. Patient is requesting discharge to home today and family meeting has been completed with son who denies having concerns pertaining to patient's discharge readiness. Patient states she has 15:00 appointment scheduled today with therapist at [facility], plans to continue outpatient psychotherapy and medication management through [facility], has declined referral for case management services. Patient verbalizes understanding of and agreement with discharge plan. MENTAL STATUS EXAMINATION: 41-year-old female who is cooperative and engageable today, makes improved eye contact, presents with adequate personal hygiene, dressed in own clothing, ambulates with steady gait, appears stated age Speech: Is of normal rate, rhythm, volume, coherent, spontaneous Language skills Adequate. Thought processes including: Linear, logical, goal-directed. Thought content: Rational, logical, no tangentiality noted, no paranoia Abstract reasoning, and computation: Appear within normal limits Description of associations: Intact. Description of abnormal or psychotic thoughts: Denies suicidal or homicidal ideation, denies auditory or visual hallucinations, does not appear to be responding to internal stimuli, does not endorse bizarre paranoid ideation, denies any preoccupation with violence or obsessions. Judgment: Adequate Insight: Fair, has improved during treatment Orientation: A and O 3. Recent and remote memory: Appears intact. Attention span and concentration: Adequate. Language: Adequate. Fund of knowledge: Appears adequate. Mood: "I feel fine, no problems, ready to go." Patient denies anxiety and depression, no mood lability noted Affect: Constricted, brightens, expresses appropriate humor, congruent with mood CONDITION ON DISCHARGE: Stable, no suicidal or homicidal ideation DIAGNOSES ON DISCHARGE: Major depressive disorder, recurrent, moderate-severe MEDICATIONS ON DISCHARGE: See below FOLLOW UP PLAN: Continue Prozac 40 mg po q am, Rexulti 0.5 mg po daily, and Wellbutrin SR 100 mg po BID Patient to discharge to home today and to be transported to [facility], will follow up with [facility] for outpatient psychotherapy and medication management services Patient to follow up with PCM within 5-7 days of discharge TIME SPENT COORDINATING CARE: 25 minutes Vital Signs/I&Os Vital Signs Date Time Temp Pulse Resp B/P (MAP) Pulse Ox O2 Delivery O2 Flow Rate FiO2 04/02/17 08:40 166/94 04/02/17 06:30 97.4 64 18 03/27/17 21:25 95 Room Air Allergies Coded Allergies: No Known Allergies (Unverified , 07/17/15) Cammie Aragon April 02, 2017 10:29
[2017-04-02 10:32] VITALS: BP 140/88
[2017-04-03] MEDS ORDERED: CYCL10TA PO (01:05)
[2017-04-03] MEDS ORDERED: GABA600T PO (01:05)
== END 2017-04-02 10:51 | disposition home or self-care (01) | DRG 751 ==
LOC: M ED 15:51 → M ED INP 16:47 → M PSY 21:22
PROVIDERS: ADMIT Psychiatry & Neurology Psychiatry; ATTEND Psychiatry & Neurology Psychiatry
DX: F33.2 Major depressive disorder, recurrent severe without psychotic features (principal); Z79.899 Other long term (current) drug therapy; M79.7 Fibromyalgia; K59.00 Constipation, unspecified; E03.9 Hypothyroidism, unspecified; I10 Essential (primary) hypertension

== ENCOUNTER 2017-04-02 18:46 | Inpatient (IN) | payer OTHER ==
[~2017-04-02] VITALS: Ht 170.2 cm; Wt 103.1 kg
[~2017-04-02 18:46] MED LIST changes: +BUPR100T3 PO; +FLUO20CA9; +FLUO20CA9 PO; +GABA-282 PO; +KETO10TAB PO; +LISI20TA PO; +LISIPOW; +METH-107 PO; -NICOTINE 21MG/24HR 1 EA TRANSDERMAL TD SCH; +REXU1TAB2 PO; +TIZA4CAP3 PO; +WELL100T2 PO; +ZALE10CA PO
[2017-04-02 19:25] LABS: MEAN CORPUSCULAR HEMOGLOBIN 32.7 pg (27.0-33.0); MEAN CORPUSCULAR HGB CONC 33.8 g/dl (32.0-36.5); MEAN CORPUSCULAR VOLUME 96.7 fl (80.0-96.0); RED CELL DISTRIBUTION WIDTH 13.5 % (11.5-14.5); WHITE BLOOD COUNT 12.4 K/mm3 (4.0-10.0)
--- NOTE | 2017-04-02 19:43 | ECGEPIP ---
Stationary ECG Study [facility] - ED Test Date: 2017-04-02 Pat Name: JACE SHELTON Department: Room: - Gender: F Brand Manager: : [id number] Requested By: JEWEL BELL Order Number: [id number] Reading MD: Bijan Jeffrey Measurements Intervals [place] Rate: 91 P: ID: 0 QRS: 121 QRSD: 207 T: 2 QT: 523 QTc: 645 Interpretive Statements SINUS RHYTHM WITH WIDE, BIZARRE QRS COMPLEXES SUGGESTIVE OF HYPERKALEMIA OR SODIUM CHANNEL RUSTY POISONING CLINICAL CORRELATION ADVISED Electronically Signed On 04-02-2017 19:43:30 EDT by Bijan Jeffrey
[2017-04-02 19:52] LABS: ALBUMIN 3.7 GM/DL (3.2-5.2); ALBUMIN/GLOBULIN RATIO 1.03 (1.00-1.93); ALKALINE PHOSPHATASE 88 U/L (45-117); ALT/SGPT 34 U/L (12-78); ANION GAP 8 MEQ/L (8-16); AST/SGOT 25 U/L (15-37); BILIRUBIN,DIRECT 0.1 MG/DL (0.0-0.2); BILIRUBIN,TOTAL 0.4 MG/DL (0.2-1.0); BLOOD UREA NITROGEN 10 MG/DL (7-18); CALCIUM LEVEL 8.2 MG/DL (8.5-10.1); CARBON DIOXIDE LEVEL 26 MEQ/L (21-32); CHLORIDE LEVEL 104 MEQ/L (98-107); CREATININE FOR GFR 0.86 MG/DL (0.55-1.02); GLOMERULAR FILTRATION RATE > 60.0 (>58); GLUCOSE, FASTING 129 MG/DL (70-105); POTASSIUM SERUM 3.7 MEQ/L (3.5-5.1); SODIUM LEVEL 138 MEQ/L (136-145); TOTAL PROTEIN 7.3 GM/DL (6.4-8.2)
[2017-04-02 21:15] LABS: METHADONE URINE NEGATIVE (NEGATIVE)
[2017-04-03 00:13] VITALS: BP 168/118
[2017-04-03] MEDS ORDERED: LISINOPRIL 5 MG TAB PO ONE (00:15)
[2017-04-03] MEDS ORDERED: LISINOPRIL 10 MG TAB PO ONE (00:15)
[2017-04-03] MEDS ORDERED: GABA600T PO (01:05)
[2017-04-03] MEDS ORDERED: CYCL10TA PO (01:05)
[2017-04-03] MEDS ORDERED: LORazepam 1 MG TAB PO PRN (02:00)
[2017-04-03] MEDS ORDERED: MOM 30ML SUSPENSION UDC PO PRN (02:00)
[2017-04-03] MEDS ORDERED: MAALOX 30 ML SUSP *UDC PO PRN (02:00)
[2017-04-03] MEDS ORDERED: ACETAMINOPHEN TAB 650MG DOSE (2X325MG) PO PRN (02:00)
[2017-04-03] MEDS ORDERED: traZODone 50 MG TAB PO PRN (02:00)
[2017-04-03 03:35] VITALS: BP 152/98
[2017-04-03] MEDS ORDERED: cloNIDine 0.1 MG TAB PO PRN (04:30)
[2017-04-03 08:53] LABS: ANION GAP 5 MEQ/L (8-16); BLOOD UREA NITROGEN 9 MG/DL (7-18); CARBON DIOXIDE LEVEL 30 MEQ/L (21-32); CHLORIDE LEVEL 106 MEQ/L (98-107); CREATININE FOR GFR 0.74 MG/DL (0.55-1.02); GLOMERULAR FILTRATION RATE > 60.0 (>58); GLUCOSE, FASTING 90 MG/DL (70-105); MAGNESIUM LEVEL 2.1 MG/DL (1.8-2.4); POTASSIUM SERUM 3.4 MEQ/L (3.5-5.1); SODIUM LEVEL 141 MEQ/L (136-145)
[2017-04-03] MEDS ORDERED: VENLAFAXINE **XR** 75MG CAPSULE PO SCH (09:00)
[2017-04-03] MEDS ORDERED: hydroCHLOROthiazide 12.5 MG CAPSULE PO SCH (09:00)
[2017-04-03] MEDS ORDERED: LISINOPRIL 20 MG TAB PO SCH (09:00)
[2017-04-03] MEDS ORDERED: GABAPENTIN 300 MG CAP PO SCH (09:00)
--- NOTE | 2017-04-03 09:19 | MHHPEPDOC ---
[facility] History & Physical History and Physical DATE OF ADMISSION: April 03, 2017 at 01:51 LEGAL STATUS AT ADMISSION: 9.39 CHIEF COMPLAINT: Patient was found at a parking lot unresponsive and was brought by EMS . She took " a handful of pills". apparently those were his boyfriend's medications but she was found with a bottle of Methocarbamol in her hands that was intact. HISTORY OF THE PRESENT ILLNESS: Patient is a 41-year-old female, who was recently discharged from the [facility], on Wednesday, because she was considered to be stable. this morning, while she was seen by this author and Dr. Dove, she said she didn't remember, that she took a whole bunch of medications, then, she said it was an over the counter medication and then, finally she admitted they were beta blockers but she refused to say whose medications were those. According to ER, those were her boyfriend's medications. She has had two abnormal EKG's and a troponin of 0.76 which indicates a major risk for a cardiac event. spoke with Dr. Dove who said she should be transferred to Telemetry in PCU for a closer observation for this same reasons. all psychiatric medications were put on hold since 8:00 a.m. PSYCHIATRIC REVIEW OF SYSTEMS: Affective: Depressed, irritable, uncooperative Anxiety: she's under the effect of medications. Not able to assess. Trauma: Needs further assessment. Psychosis: Not psychotic Personally: Needs further assessment. PAST PSYCHIATRIC HISTORY: Prior Psychiatric Disorder: History of depression. Outpatient Treatment: She has had outpatient treatment. Suicidal/Self injurious: She has had several suicide attempts. Psychotropic Medication History: Gabapentin, Venlafaxine, Wellbutrin, Prozac, as per patient. ALLERGIES: Please see below. FAMILY PSYCHIATRIC HISTORY: Her brother killed himself by self inflicted gunshot. SOCIAL HISTORY: Early Relations/development: parents were when she was 1 years two Sibling order: Not close to her family. a brother killed himself. Paternal relationships: Patient is uncooperative and doesn't want to provide information, therefore this author had to obtain it from previous admission records. she is not close to them, not to her siblings. Education: Got a GED diploma. Occupational: She was working but lost her job prior to previous admission due to her increasing depression. Legal: Denies. Martial: Was before. It is not clear if she is or from her , but she has a boyfriend who gave up un her before she was admitted last time. Economic: Needs further assessment. Supports: apparently her only support is her boyfriend. Abuse/trauma: needs further assessment SUBSTANCE ABUSE HISTORY: Denies. PAST MEDICAL/SURGICAL HISTORY: 1. Herniated disc 2. Hypertension. VITAL SIGNS: See below MENTAL STATUS EXAMINATION: General appearance: Patient is a 41-year old female, who is sleepy, uncooperative, with poor eye contact. Speech: Normal. Thought processes: Intact. Thought content: Negative for psychotic thoughts. Abstract reasoning and computation: unable to assess. Description of associations: Not loose. Description of abnormal or psychotic thoughts: Not present. Judgment: Extremely poor. Insight: Extremely poor. Orientation: Oriented x 3. Recent and remote memory: Intact. Attention span and concentration: Intact. Fund of knowledge: Full. Mood: Irritable, angry Affect: labile. DIAGNOSES: 1. Major Depressive with SI. 2. H/O suicide attempt. 3. R/O Borderline PD. ASSESSMENT: Patient had an abnormal EKG and this author was notified by Dr. Jeffrey, from the Emergency Department, that she had a "very worrisome EKG" and that he was going to contact the Hospitalist and that I would put a Hospitalist consult JAMES and do another STAT EKG. This author contacted the Nurse station and asked one of the Nurses to put on the order for the consult and the EKG. The new EKG, shows non specific t wave abnormality and moderate intraventricular conduction delay ( second EKG). The first EKG that was performed at the ER, showed SINUS RHYTHM WITH WIDE, BIZARRE QRS COMPLEXES SUGGESTIVE OF HYPERKALEMIA OR SODIO CHANNEL RUSTY POISONING. Dr. Dove, Hospitalist assistant professor of communication, came and evaluated the patient and he has ordered a series of labs., and her Troponin levels 0.76, potassium is 3.4. Her troponin levels suggest a risk for a major miocardial event. Then, Dr. Dove called and said the patient should be transferred to Telemetry, at [facility] because of his abnormal EKG's and 0.76 troponin level. PROBLEM LIST: 1. Risk for suicide/self harm 2. Poor impulse control. 3. Recent suicide attempt. 4. Abnormal EKG's and troponins INITIAL TREATMENT PLAN: 1. Patient was admitted on a 9.39 2. Complete history was obtained. 3. With patients permission, family will be contacted and database will be expanded. 4. Patients medication regimen will be reviewed and changed accordingly. 5. Patient will be provided with protected environment. 6. Patient will be treated with individual, group, and milieu therapies. 7. Patient will receive supportive psych-education. 8. Discharge planning will commence immediately. 9. Outpatient follow-up treatment will be strongly recommended. 10. The initial treatment plan will focus initially on: * Depression. * Risk for suicide. * Substance abuse. ESTIMATED LENGTH OF STAY: - DAYS. TIME SPENT COUNSELING AND COORDINATING INITIAL CARE: minutes. Laboratory Data 24H Labs Laboratory Tests 2 04/02/17 19:11: Anion Gap 8, Glomerular Filtration Rate > 60.0, Calcium Level 8.2L, Aspartate Amino Transf (AST/SGOT) 25, Alanine Aminotransferase (ALT/SGPT) 34, Alkaline Phosphatase 88, Total Bilirubin 0.4, Direct Bilirubin 0.1, Total Protein 7.3, Albumin 3.7, Albumin/Globulin Ratio 1.03, Thyroid Stimulating Hormone (TSH) 2.460, Salicylates Level < 1.7L, Acetaminophen Level < 2.0L, Ethyl Alcohol Level < 0.003 04/02/17 20:40: Urine Amphetamines Screen NEGATIVE, Urine Benzodiazepines Screen NEGATIVE, Urine Opiates Screen NEGATIVE, Urine Methadone Screen NEGATIVE, Urine Barbiturates Screen NEGATIVE, Urine Phencyclidine Screen NEGATIVE, Urine Cocaine Metabolite Screen NEGATIVE, Urine Cannabinoids Screen NEGATIVE 04/03/17 08:17: Anion Gap 5L, Glomerular Filtration Rate > 60.0, Calcium Level 8.0L, Blood Urea Nitrogen 9, Creatinine 0.74, Sodium Level 141, Potassium Level 3.4L, Chloride Level 106, Carbon Dioxide Level 30, Magnesium Level 2.1, Troponin I 0.76H CBC/BMP Laboratory Tests 04/02/17 19:11 Red Blood Count 3.95 L, Mean Corpuscular Volume 96.7 H, Mean Corpuscular Hemoglobin 32.7, Mean Corpuscular Hemoglobin Concent 33.8, Red Cell Distribution Width 13.5 04/03/17 08:17 Calcium Level 8.0 L Allergies Coded Allergies: No Known Allergies (Unverified , 07/17/15) NINO MARS MD April 03, 2017 09:19
[2017-04-03] MEDS ORDERED: POTASSIUM CHLORIDE 10 MEQ SR TABLET PO ONE (10:00)
--- NOTE | 2017-04-03 11:02 | ECGEPIP ---
Stationary ECG Study [facility] Test Date: 2017-04-03 Pat Name: JACE SHELTON Department: Room: [place] [address] Gender: F Android Architect: REBEKA : 1975 Requested By: NINO Barajas Order Number: [id number] Reading MD: Berta Townsend Measurements Intervals [place] Rate: 69 P: 58 [place]: 194 QRS: 6 QRSD: 129 T: 83 QT: 411 QTc: 443 Interpretive Statements SINUS RHYTHM MODERATE INTRAVENTRICULAR CONDUCTION DELAY NONSPECIFIC T-WAVE ABNORMALITY much improved over 04/02/17 QT PROLOGATION PERSISTS Electronically Signed On 04-03-2017 11:02:05 EDT by Berta Townsend
--- NOTE | 2017-04-26 11:57 | MHDSPDOC ---
[facility] Discharge Summary Discharge Summary DATE OF ADMISSION: April 03, 2017 at 01:51 DATE OF DISCHARGE: April 03, 2017 at 11:45 DISCHARGE DIAGNOSES: 1. Unspecified depressive disorder. 2. Unspecified anxiety disorder. 3. Status post overdose. REASON FOR ADMISSION: The patient was admitted after reportedly taking an overdose of pills and being found in a mildly confused state report. CONSULTANTS INVOLVED: Medicine, recommended admission to inpatient telemetry for monitoring TREATMENT AND PROGRESS ON THE UNIT : Legal status on admission: 9.39 Medication Management: Discontinuing all psychiatric medications due to concern of excessively elevated QTC, in excess of 600 Psychotherapy: None Behavior: Amenable, cooperative Discharge planning: After being assessed by medicine due to her distorted electrocardiogram, she was transferred to inpatient medicine for telemetry on a one-to-one sitter with safety precautions Outpatient recommendations: None Pending studies on discharge: None DISCHARGE ASSESSMENT: 41-year-old woman whom presented with a suspected overdose, whom later confirmed set overdose of beta blockers. She was determined after her initial EKG was read to be medically unstable, after consultation with medicine she was slated to be discharged to the medical ibarra for monitoring with intentions of being evaluated by psychiatry when she was medically cleared. MENTAL STATUS EXAMINATION ON DISCHARGE: "General: Well dressed with good hygiene Speech: Spontaneous and fluid Thought processes: Linear and logical Thought content: Remorseful, admits to overdose Abstract reasoning, and computation: Intact Description of associations: Intact Description of abnormal or psychotic thoughts: Admits to taking an overdose in order to kill herself. Makes no threats against herself or others at this time. Does not appear to be internally preoccupied. Judgment: Poor Insight: Poor Orientation: Alert and orientated 3 Recent and remote memory: Intact Attention span and concentration: Intact Fund of knowledge: Adequate Mood: "Bad" Affect: Dysthymic with constricted range "- Dr.Otten BYRNE PLAN/FOLLOWUP ARRANGEMENTS: Psychiatry to follow up once patient is medically cleared, until then patient is to remain on a one-to-one sitter, if she attempts to leave AMA recommend calling psychiatry. The amount of time spent in the coordination of care for this patient was approximately 30 minutes. Medications Scheduled Amlodipine Besylate (Amlodipine Besylate) 10 Mg Tab, 10 MG PO DAILY, #30 Amlodipine Besylate (Amlodipine Besylate) 10 Mg Tab, 10 MG PO DAILY for HYPERTENSION, #7 Aspirin (Aspirin EC) 81 Mg Tabec, 81 MG PO DAILY for 30 Days, #30 Aspirin (Aspirin Low Strength) 81 Mg Chw, 81 MG PO DAILY for CORONARY ARTERY DISEASE, #7 Atorvastatin Calcium (Atorvastatin Calcium) 10 Mg Tab, 10 MG PO QHS, #30 Atorvastatin Calcium (Atorvastatin Calcium) 10 Mg Tab, 10 MG PO QHS for HYPERCHOLESTEROLEMIA, #7 Fluoxetine HCl (Fluoxetine HCl) 10 Mg Cap, 10 MG PO DAILY, #30 Fluoxetine HCl (Fluoxetine HCl) 10 Mg Cap, 10 MG PO DAILY for DEPRESSION, #7 Lisinopril (Lisinopril) 20 Mg Tab, 20 MG PO DAILY, #30 Lisinopril (Lisinopril) 20 Mg Tab, 20 MG PO DAILY for HYPERTENSION, #7 Allergies Coded Allergies: No Known Allergies (Unverified , 07/17/15) GME ATTESTATION GME ATTESTATION My preceptor for this patient encounter was physically present in the building during the encounter and was fully available. As needed, all aspects of the patient interview, examination, medical decision making process, and medical care plan development were reviewed and approved by the preceptor. Preceptor is aware and concurs with the plan as stated in the body of this note and will attest to such by his/her cosignature. CHARLEE AZAR DO Apr 26, 2017 11:57
== END 2017-04-03 11:45 | disposition short-term general hospital (02) | DRG 751 ==
LOC: EDBD 18:46 → M ED 20:27 → M ED INP 04-03 01:51 → M PSY 04-03 03:26
PROVIDERS: ADMIT Psychiatry & Neurology Psychiatry; ATTEND Psychiatry & Neurology Psychiatry
DX: F33.2 Major depressive disorder, recurrent severe without psychotic features (principal); I10 Essential (primary) hypertension; R45.851 Suicidal ideations; F60.3 Borderline personality disorder; R94.31 Abnormal electrocardiogram [ECG] [EKG]; Z79.82 Long term (current) use of aspirin; Z79.899 Other long term (current) drug therapy; Z81.8 Family history of other mental and behavioral disorders

== ENCOUNTER 2017-04-03 11:52 | Inpatient (IN) | payer OTHER ==
[~2017-04-03] VITALS: Ht 170.2 cm; Wt 98.9 kg
[2017-04-03 11:50] VITALS: BP 132/83
[~2017-04-03 11:52] MED LIST changes: -CELE-19 PO; +CELE1CAP4 PO; +CYCL10TA PO; +FLUO20CA19; +FLUO20CA19 PO; -FLUO20CA9; -FLUO20CA9 PO; +GABA600T PO; -METH-107 PO; +METH1TAB40 PO; +TRAZ50TA11 PO; -TRAZ50TA4 PO
[2017-04-03] MEDS ORDERED: ONDANSETRON 4MG/2ML VIAL (J2405) IV PRN (12:15)
[2017-04-03] MEDS ORDERED: SLF 3 ML SYR IV PRN (15:30)
--- NOTE | 2017-04-03 15:56 | HPEPDOC ---
General Date of Admission April 03, 2017 at 12:31 Other Providers Unknown Chief Complaint The patient is a 41-year-old female admitted with a reason for visit of Change In Ekg Status Secondary To Overdose. History of Present Illness 41 Y/O F with PMH of HTN, Herniated Lumbar disc, chronic pain, Fibromyalgia, Depression, History of Suicidal Ideations and Attempts, Chronic constipation, and H/O urinary retention who was initially admitted in the inpatient mental health unit and admitted for suicidal ideations from 03/27-04/02. The patient was discharged on 04/02 in the afternoon, and was subsequently brought back by EMS after she was found unresponsive after ingesting a handful of an unknown substance of pills. The patient was admitted once again to the inpatient mental health unit overnight. However, after review of the patient's EKG overnight the patient was noted to have a widened QRS complex, RBBB, with a prolonged QT interval of 523 and a QTc interval of 645. Troponin ordered this morning was also noted to be 0.76. A repeat EKG this morning reveals a normal sinus rhythm with a QT and QTc interval within normal limits. The patient was transferred to the telemetry floor for further evaluation and management. The patient denies any history of cardiac disease. She does state that she had a stress test and echocardiogram done in the past and was seen by Dr. Mccartney of cardiology for clearance for surgery. She denies any abnormal findings. The patient states that she is unsure which pills she took that caused her to overdose. At this time, the patient denies any chest pain, palpitations, shortness of breath, lightheadedness, abdominal pain, or any nausea/vomiting/diarrhea. Allergies Coded Allergies: No Known Allergies (Unverified , 07/17/15) Past Medical History Medical History As noted in HPI. Surgical History Uterine ablation Hysterectomy Lower back surgery Cystoscopy Family History Mother: Alive, Dementia, DM, HTN Father: Alive, Dementia, HTN Siblings: 1 sister Alive, well Children: Alive, well Unexpected deaths due to medical reasons: None. Social History Resides in: [facility] Marital Status: single Kids: 3 kids Employment: Works at [employer] Tobacco use: Denies ETOH: Denies Illicit Drugs: Denies IV Drug Use: Denies Tattoos done unprofessionally: Denies Review of Symptoms Other systems 10 point review of systems negative unless otherwise specified in HPI. Physical Examination General Exam: Positive: Alert, Cooperative, No Acute Distress ENT Exam: Positive: Atraumatic, Mucous membr. moist/pink Neck Exam: Negative: JVD Chest Exam: Positive: Clear to auscultation, Normal air movement Heart Exam: Positive: Rate Normal, Normal S1, Normal S2 Telemetry: Positive: Sinus Abdomen Exam: Positive: Soft, Negative: Tenderness Extremity Exam: Negative: Tenderness, Swelling Vital Signs Vital Signs Date Time Temp Pulse Resp B/P (MAP) Pulse Ox O2 Delivery O2 Flow Rate FiO2 04/03/17 11:50 97.7 67 16 132/83 (99) 97 Room Air Plan / VTE VTE Prophylaxis Ordered?: Yes Plan Plan Abnormal EKG Patient noted to have a widened QRS complex, RBBB, with a prolonged QT interval of 523 and a QTc interval of 645 on initial EKG on admission Repeat EKG this AM reveals NSR, no acute ST changes Troponin this AM 0.76, possibly 2/2 Hypoxia, unresponsive state--We will serially trend this Patient denies any acute c/o SOB, chest pain, palpitations, or any Hx of Heart Disease The patient has apparently seen Dr. Mccartney of Cardiology as an outpatient for a pre -operative clearance in the past and states that she had a negative stress test , ECHO in the past--We will obtain records I have discussed the case with Dr. Santos of cardiology who was bone worker today-- > has advised to monitor the patient on telemetry at this time. We will continue to follow up with the patient's progress and monitor her on telemetry Repeat EKG in the morning Elevated troponin level Possibly secondary to hypoxia, unresponsive state--We will serially trend Patient without any complaints of chest pain, shortness of breath, palpitations or other symptoms at this time EKG without any acute ST changes We'll continue to monitor the patient on telemetry for now History of depression, suicidal ideations, overdose attempt I did discuss the case with Dr. Murcia of psychiatry, and we will hold the patient's antidepressants at this time as they are QT prolonging agents The patient will likely need a psychiatry consultation to return back to the inpatient mental health unit for psychiatric stabilization when she is medically cleared Suicide precautions Hypertension, stable DVT prophylaxis-LUIS Casiano MD April 03, 2017 15:56
[2017-04-03 16:00] VITALS: BP 153/97
[2017-04-03] MEDS ORDERED: ISOVUE-370 76% 100ML VIAL (Q9967) As Ordered ONE (17:04)
[2017-04-03] MEDS: ACETAMINOPHEN TAB 650MG DOSE (2X325MG) PO PRN (17:29)
[2017-04-03] MEDS: LISINOPRIL 20 MG TAB PO SCH (17:51)
[2017-04-03] MEDS: amLODIPine 10 MG TAB PO SCH (17:51)
[2017-04-03] MEDS: hydrALAZINE INJ 20 MG/ML VIAL IV SCH (18:00)
--- NOTE | 2017-04-03 18:03 | REP ---
Clinical: Acute chest pain. Technique: Axial contrast enhanced images from the thoracic inlet to the upper abdomen using 100 ml Isovue 370 intravenous contrast material with coronal and sagittal re-formations. Findings: Satisfactory enhancement of the pulmonary vasculature is achieved and no filling defects are identified to suggest pulmonary embolus. Thoracic aorta is normal caliber without aneurysm or dissection. Heart and pericardium are upper limits of normal and mild pulmonary vascular congestion cannot be excluded. Bilateral lung chau are well aerated and clear without acute pulmonary parenchymal consolidation or atelectasis. No nodule or mass lesion. No pleural effusion/reaction. No pneumothorax. No adenopathy. Impression: No evidence for pulmonary embolus. The heart appears to be upper limits of normal and mild pulmonary vascular congestion cannot be excluded. No acute pleuroparenchymal or mediastinal process. Signed by Jv Daniel MD 04/03/2017 05:54 P
[2017-04-03] MEDS: ASPIRIN 81 MG ENTERIC TAB PO SCH (18:45)
[2017-04-03] MEDS: ENOXAPARIN 100MG/1ML SYRINGE (J1650) SC SCH (18:45)
[2017-04-03 20:00] VITALS: BP 140/86
[2017-04-03] MEDS ORDERED: ENOXAPARIN 40 MG/0.4 ML SYRINGE (J1650) SC SCH (21:00)
[2017-04-03] MEDS: SLF 3 ML SYR IV SCH (22:52)
[2017-04-04] VITALS (8 sets, daily range): BP systolic 109–149; BP diastolic 66–91; PULSE 56–68
[2017-04-04 04:40] LABS: MEAN CORPUSCULAR HEMOGLOBIN 32.5 pg (27.0-33.0); MEAN CORPUSCULAR HGB CONC 33.2 g/dl (32.0-36.5); MEAN CORPUSCULAR VOLUME 97.8 fl (80.0-96.0); RED CELL DISTRIBUTION WIDTH 13.6 % (11.5-14.5); WHITE BLOOD COUNT 8.2 K/mm3 (4.0-10.0)
[2017-04-04 04:57] LABS: ANION GAP 5 MEQ/L (8-16); BLOOD UREA NITROGEN 10 MG/DL (7-18); CALCIUM LEVEL 7.7 MG/DL (8.5-10.1); CARBON DIOXIDE LEVEL 27 MEQ/L (21-32); CHLORIDE LEVEL 106 MEQ/L (98-107); CREATININE FOR GFR 0.63 MG/DL (0.55-1.02); GLOMERULAR FILTRATION RATE > 60.0 (>58); GLUCOSE, FASTING 89 MG/DL (70-105); POTASSIUM SERUM 3.5 MEQ/L (3.5-5.1); SODIUM LEVEL 138 MEQ/L (136-145)
[2017-04-04] MEDS: hydrALAZINE INJ 20 MG/ML VIAL IV SCH ×4 (06:00→17:20)
[2017-04-04] MEDS ORDERED: POTASSIUM CHLORIDE 10 MEQ SR TABLET PO ONE (06:15)
[2017-04-04] MEDS: ENOXAPARIN 100MG/1ML SYRINGE (J1650) SC SCH (06:35)
[2017-04-04] MEDS: SLF 3 ML SYR IV SCH ×3 (06:35→22:55)
--- NOTE | 2017-04-04 08:16 | ECGEPIP ---
Stationary ECG Study [facility] Test Date: 2017-04-04 Pat Name: JACE SHELTON Department: Room: [place] [address] Gender: F Medical Education Specialist: REBEKA : 1975 Requested By: LUIS WEBBER Order Number: [id number] Reading MD: Berta Townsend Measurements Intervals [place] Rate: 68 P: 57 [place]: 187 QRS: -16 QRSD: 111 T: 151 QT: 424 QTc: 454 Interpretive Statements SINUS RHYTHM INFERIOR MYOCARDIAL INFARCTION, PROBABLY OLD DIFFUSE T-WAVE ABNORMALITY, CONSIDER ANTEROLATERAL ISCHEMIA PROLONGED QT SIMILAR TO 04/03/17 Electronically Signed On 04-04-2017 8:16:28 EDT by Berta Townsend
[2017-04-04] MEDS: amLODIPine 10 MG TAB PO SCH (08:45)
[2017-04-04] MEDS: LISINOPRIL 20 MG TAB PO SCH (08:45)
[2017-04-04] MEDS: ASPIRIN 81 MG ENTERIC TAB PO SCH (08:45)
[2017-04-04] MEDS: ACETAMINOPHEN TAB 650MG DOSE (2X325MG) PO PRN (14:25)
--- NOTE | 2017-04-04 15:10 | ECHO ---
DATE OF PROCEDURE: 04/03/2017 HEIGHT: 67 inches. WEIGHT: 216 pounds. BODY SURFACE AREA: 2.09 meters squared LOCATION: Inpatient ICU room 3205 REFERRING PHYSICIAN: Dr. Rajan Dove. INDICATION: Abnormal electrocardiogram (EKG). MEASUREMENTS: 2D Measurements: RV - 3.0 cm LV - 5.0 cm Septum - 1.1 cm Posterior wall - 1.1 cm Aortic root - 3.4 cm LA - 4.5 cm LVEF - 60% Doppler Measurements: AV - 1.3 meters per second LVOT - 1.1 meters per second MV - E 80, A - 70, E/A ratio 1.1 Early mitral deceleration time - 208 milliseconds E prime 5.8, A prime 10, E/A ratio 13.9 PV - 1.0 meters per second Pulmonary artery acceleration time - 102 milliseconds RVSP - 25 to 30 mmHg IVC - 1.9 cm COMMENTS: Normal sinus rhythm without intraventricular conduction disturbance. Mildly dilated left atrium but normal left ventricular size. Right heart chamber sizes were normal. Normal LV wall thickness. On real-time imaging from the parasternal and projections. She had an obvious apical ballooning with hyperkinetic proximal LV wall motion suggestive of stress induced cardiomyopathy. Global resting systolic function appeared to be intact. Right ventricular function was normal. Normal-appearing mitral valvular apparatus leaflet excursion with no posterior systolic buckling. Three equal size aortic cusps of normal thickness and cusp separation. No apparent intracardiac mass or pericardial effusion. Color flow Doppler study taken from the parasternal and projection showed very mild mitral and tricuspid but no aortic insufficiency. Guided continuous wave Doppler of her LV outflow tract taken from the apical long axis and five-chamber projection showed a normal peak systolic velocity against LV outflow tract obstruction. Pulsed and continuous wave Doppler of her LV inflow tract taken from the apical four-chamber projection showed normal diastolic filling velocities against mitral stenosis. Her filling pattern was also normal. Her early mitral deceleration time was slightly prolonged and tissue Doppler of the mitral annulus did suggest a degree of impaired LV diastolic function. Current estimated mean left atrial pressure was upper limits of normal. Pulsed and continuous wave Doppler of her pulmonary trunk showed a normal peak systolic velocity against RV outflow tract obstruction. Her pulmonary artery acceleration time was borderline abbreviated suggestive a slightly elevated pulmonary vascular resistance. Guided continuous wave Doppler of her tricuspid valve allowed our estimation of right ventricular systolic pressure (upper limits of normal to slightly increased). Her inferior vena cava was of normal size with normal respiratory collapse against an elevated central venous pressure. CONCLUSION: Echocardiographic findings in keeping with stress induced cardiomyopathy. Normal left ventricular size and wall thickness with apical LV ballooning and hyperkinetic proximal portions of the left ventricle with preserved global resting systolic function. Mildly dilated left atrium with Doppler evidence of a degree of impaired LV diastolic function but currently normal estimated mean left atrial pressure. Normal right heart chamber sizes and contraction with pulmonary arterial pressure upper limits of normal to borderline increased. Normal-appearing mitral valvular apparatus with very mild insufficiency. Preliminary report of this study was relayed to Dr. Dove.
--- NOTE | 2017-04-04 15:12 | IPNPDOC ---
Subjective Date Seen The patient was seen on 04/04/17. Subjective Chief Complaint/HPI The patient is a 41-year-old female admitted with a reason for visit of Change In Ekg Status Secondary To Overdose. General: Denies: Chills, Night Sweats Constitutional: Denies: Chills, Fever Eyes: Denies: Pain, Vision change ENT: Denies: Head Aches, Ear Pain Skin: Denies: Rash, Lesions Pulmonary: Denies: Dyspnea, Cough Cardiovascular: Denies: Chest Pain, Palpitations, Orthopnea Gastrointestinal: Denies: Nausea, Vomiting Genitourinary: Denies: Dysuria, Frequency Hematologic: Denies: Bruising, Bleeding Excessively Objective Physical Examination General Exam: Positive: Alert, Cooperative, No Acute Distress ENT Exam: Positive: Atraumatic, Mucous membr. moist/pink Neck Exam: Negative: JVD Chest Exam: Positive: Clear to auscultation, Normal air movement Heart Exam: Positive: Rate Normal, Normal S1, Normal S2 Telemetry: Positive: Sinus Abdomen Exam: Positive: Soft, Negative: Tenderness Extremity Exam: Negative: Tenderness, Swelling Assessment /Plan Plan/VTE VTE Prophylaxis Ordered?: Yes Plan/Urinary Catheter Reason for insertion/continuin: Acute obstruct/retention Plan Abnormal EKG, possibly 2/2 Stress Induced Takotsubo's Cardiomyopathy Patient noted to have a widened QRS complex, RBBB, with a prolonged QT interval of 523 and a QTc interval of 645 on initial EKG on admission (04/02) Repeat EKG on 04/03 revealed NSR, no acute ST changes Repeat EKG on 04/04 reveals NSR with T-Wave abnormalities noted on the lateral leads Troponin peaked yesterday evening at 1.79-->trending downward No acute events noted on Telemetry I have just received report from the irrigation equipment remover Polishing Wheel Setter (Dr. Santos), that the patient's preliminary ECHO is suggestive of Takotsubo's Cardiomyopathy, with a preserved EF--will await official report Patient appears euvolemic at this time Denies any acute c/o SOB, chest pain, palpitations, or any Hx of Heart Disease The patient has apparently seen Dr. Mccartney of Cardiology as an outpatient for a pre -operative clearance in the past and states that she had a negative stress test , ECHO in the past--We will obtain records Cont ASA, Unable to start Beta Blockers 2/2 low HR We will continue to follow up with the patient's progress and monitor her on telemetry Elevated troponin level 2/2 Above Peak Troponin of 1.79 and now trending downward Patient without any complaints of chest pain, shortness of breath, palpitations or other symptoms at this time We'll continue to monitor the patient on telemetry for now History of depression, suicidal ideations, overdose attempt I did discuss the case with Dr. Murcia of psychiatry, and we will hold the patient's antidepressants at this time as they are QT prolonging agents The patient will likely need a psychiatry consultation to return back to the inpatient mental health unit for psychiatric stabilization when she is medically cleared Suicide precautions Hypertension, stable DVT prophylaxis-Lovenox VS, I&O, 24H, Fishbone Vital Signs/I&O Vital Signs Date Time Temp Pulse Resp B/P (MAP) Pulse Ox O2 Delivery O2 Flow Rate FiO2 04/04/17 12:00 97.0 68 16 129/77 (94) 96 Room Air I&O- Last 24 Hours up to 6 AM 04/04/17 05:59 Intake Total 600 ml Output Total 1100 ml Balance -500 ml Laboratory Data 24H LABS Laboratory Tests 2 04/03/17 16:13: Estimated Mean Plasma Glucose 108, Hemoglobin A1c 5.4, Total Creatine Kinase 192 , Creatine Kinase MB 12.1H, Creatine Kinase MB Relative Index 6.30H, Troponin I 1.79#*H 04/04/17 00:02: Total Creatine Kinase 160, Creatine Kinase MB 11.1H, Creatine Kinase MB Relative Index 6.93H, Troponin I 1.63*H 04/04/17 04:21: Anion Gap 5L, Glomerular Filtration Rate > 60.0, Blood Urea Nitrogen 10, Creatinine 0.63, Sodium Level 138, Potassium Level 3.5, Chloride Level 106, Carbon Dioxide Level 27, Calcium Level 7.7L, Magnesium Level 2.0 04/04/17 07:55: Total Creatine Kinase 121, Creatine Kinase MB 7.8H, Creatine Kinase MB Relative Index 6.44H, Troponin I 1.28#H, Triglycerides Level 273H, LDL Cholesterol 97.4, Total Cholesterol 186, Non-HDL Cholesterol (LDL + VLDL) 152, Total HDL Cholesterol 34L, Cholesterol/HDL Ratio 5.470H CBC/BMP Laboratory Tests 04/04/17 04:21 Red Blood Count 3.93 L, Mean Corpuscular Volume 97.8 H, Mean Corpuscular Hemoglobin 32.5, Mean Corpuscular Hemoglobin Concent 33.2, Red Cell Distribution Width 13.6, Calcium Level 7.7 L LUIS WEBBER MD April 04, 2017 15:12
[2017-04-05 00:45] VITALS: BP 127/81
[2017-04-05 04:51] LABS: MEAN CORPUSCULAR HEMOGLOBIN 33.1 pg (27.0-33.0); MEAN CORPUSCULAR HGB CONC 33.8 g/dl (32.0-36.5); MEAN CORPUSCULAR VOLUME 97.9 fl (80.0-96.0); RED CELL DISTRIBUTION WIDTH 13.7 % (11.5-14.5)
[2017-04-05 04:56] LABS: ANION GAP 8 MEQ/L (8-16); BLOOD UREA NITROGEN 16 MG/DL (7-18); CALCIUM LEVEL 8.5 MG/DL (8.5-10.1); CARBON DIOXIDE LEVEL 25 MEQ/L (21-32); CHLORIDE LEVEL 107 MEQ/L (98-107); CREATININE FOR GFR 0.74 MG/DL (0.55-1.02); GLOMERULAR FILTRATION RATE > 60.0 (>58); GLUCOSE, FASTING 117 MG/DL (70-105); MAGNESIUM LEVEL 2.1 MG/DL (1.8-2.4); POTASSIUM SERUM 3.6 MEQ/L (3.5-5.1); SODIUM LEVEL 140 MEQ/L (136-145)
[2017-04-05 05:00] VITALS: BP 142/85
[2017-04-05] MEDS: hydrALAZINE INJ 20 MG/ML VIAL IV SCH ×4 (05:22→18:00)
[2017-04-05] MEDS: SLF 3 ML SYR IV SCH ×3 (05:24→22:08)
[2017-04-05 08:00] VITALS: BP 115/60
[2017-04-05] MEDS: amLODIPine 10 MG TAB PO SCH (08:44)
[2017-04-05] MEDS: LISINOPRIL 20 MG TAB PO SCH (08:44)
[2017-04-05] MEDS: ENOXAPARIN 40 MG/0.4 ML SYRINGE (J1650) SC SCH (08:44)
[2017-04-05 12:00] VITALS: BP 130/79
[2017-04-05] MEDS: ASPIRIN 81 MG ENTERIC TAB PO SCH (13:40)
--- NOTE | 2017-04-05 15:50 | IPNPDOC ---
Subjective Date Seen The patient was seen on 04/05/17. Subjective Chief Complaint/HPI The patient is a 41-year-old female admitted with a reason for visit of Change In Ekg Status Secondary To Overdose. General: Denies: Chills, Night Sweats Constitutional: Denies: Chills, Fever Eyes: Denies: Pain, Vision change ENT: Denies: Head Aches, Ear Pain Skin: Denies: Rash, Lesions Pulmonary: Denies: Dyspnea, Cough Cardiovascular: Denies: Chest Pain, Palpitations Gastrointestinal: Denies: Nausea, Vomiting, Abdominal Pain Genitourinary: Denies: Dysuria, Frequency Hematologic: Denies: Bruising, Bleeding Excessively Objective Physical Examination General Exam: Positive: Alert, Cooperative, No Acute Distress ENT Exam: Positive: Atraumatic, Mucous membr. moist/pink Neck Exam: Negative: JVD Chest Exam: Positive: Clear to auscultation, Normal air movement Heart Exam: Positive: Rate Normal, Normal S1, Normal S2 Telemetry: Positive: Sinus Abdomen Exam: Positive: Soft, Negative: Tenderness Extremity Exam: Negative: Tenderness, Swelling Psych Exam: Positive: Oriented x 3 Assessment /Plan Plan/VTE VTE Prophylaxis Ordered?: Yes Plan/Urinary Catheter Reason for insertion/continuin: Acute obstruct/retention Plan Abnormal EKG, possibly 2/2 Stress Induced Takotsubo's Cardiomyopathy Patient noted to have a widened QRS complex, RBBB, with a prolonged QT interval of 523 and a QTc interval of 645 on initial EKG on admission (04/02) Repeat EKG on 04/03 revealed NSR, no acute ST changes Repeat EKG on 04/04 reveals NSR with T-Wave abnormalities noted on the lateral leads Troponin peaked yesterday evening at 1.79-->trending downward No acute events noted on Telemetry I have just received report from the clinical rehabilitation coordinator Sales Floor Team Member (Dr. Santos), that the patient's preliminary ECHO is suggestive of Takotsubo's Cardiomyopathy, with a preserved EF--will await official report Patient appears euvolemic at this time Denies any acute c/o SOB, chest pain, palpitations, or any Hx of Heart Disease The patient has apparently seen Dr. Mccartney of Cardiology as an outpatient for a pre -operative clearance in the past and states that she had a negative stress test , ECHO in the past--We will obtain records Cont ASA, Unable to start Beta Blockers 2/2 low HR We will continue to follow up with the patient's progress and monitor her on telemetry Dr. Mosley of Cardiology consulted Elevated troponin level 2/2 Above Peak Troponin of 1.79 and now trending downward Patient without any complaints of chest pain, shortness of breath, palpitations or other symptoms at this time We'll continue to monitor the patient on telemetry for now History of depression, suicidal ideations, overdose attempt I did discuss the case with Dr. Murcia of psychiatry, and we will hold the patient's antidepressants at this time as they are QT prolonging agents The patient will likely need a psychiatry consultation to return back to the inpatient mental health unit for psychiatric stabilization when she is medically cleared Suicide precautions Hypertension, stable DVT prophylaxis-Lovenox VS, I&O, 24H, Fishbone Vital Signs/I&O Vital Signs Date Time Temp Pulse Resp B/P (MAP) Pulse Ox O2 Delivery O2 Flow Rate FiO2 04/05/17 12:00 97.7 66 18 130/79 (96) 94 Room Air I&O- Last 24 Hours up to 6 AM 04/05/17 06:00 Intake Total 1200 ml Output Total 1460 ml Balance -260 ml Laboratory Data 24H LABS Laboratory Tests 2 04/05/17 04:14: Anion Gap 8, Glomerular Filtration Rate > 60.0, Blood Urea Nitrogen 16#, Creatinine 0.74, Sodium Level 140, Potassium Level 3.6, Chloride Level 107, Carbon Dioxide Level 25, Calcium Level 8.5, Magnesium Level 2.1 CBC/BMP Laboratory Tests 04/05/17 04:14 Red Blood Count 4.03, Mean Corpuscular Volume 97.9 H, Mean Corpuscular Hemoglobin 33.1 H, Mean Corpuscular Hemoglobin Concent 33.8, Red Cell Distribution Width 13.7, Calcium Level 8.5 LUIS WEBBER MD April 05, 2017 15:50
[2017-04-05 16:00] VITALS: BP 122/74
[2017-04-05 20:00] VITALS: BP 115/71
[2017-04-06] VITALS (8 sets, daily range): BP systolic 105–146; BP diastolic 60–76; PULSE 76
[2017-04-06 05:11] LABS: MEAN CORPUSCULAR HGB CONC 34.4 g/dl (32.0-36.5); MEAN CORPUSCULAR VOLUME 95.9 fl (80.0-96.0); RED CELL DISTRIBUTION WIDTH 13.6 % (11.5-14.5); WHITE BLOOD COUNT 8.4 K/mm3 (4.0-10.0)
[2017-04-06 05:27] LABS: ANION GAP 6 MEQ/L (8-16); BLOOD UREA NITROGEN 11 MG/DL (7-18); CALCIUM LEVEL 8.5 MG/DL (8.5-10.1); CARBON DIOXIDE LEVEL 29 MEQ/L (21-32); CHLORIDE LEVEL 105 MEQ/L (98-107); CREATININE FOR GFR 0.75 MG/DL (0.55-1.02); GLOMERULAR FILTRATION RATE > 60.0 (>58); GLUCOSE, FASTING 98 MG/DL (70-105); MAGNESIUM LEVEL 2.1 MG/DL (1.8-2.4); POTASSIUM SERUM 3.8 MEQ/L (3.5-5.1); SODIUM LEVEL 140 MEQ/L (136-145)
[2017-04-06] MEDS: hydrALAZINE INJ 20 MG/ML VIAL IV SCH ×4 (06:00→17:46)
[2017-04-06] MEDS: SLF 3 ML SYR IV SCH ×3 (06:53→23:59)
--- NOTE | 2017-04-06 08:32 | ECGEPIP ---
Stationary ECG Study [facility] Test Date: 2017-04-06 Pat Name: JACE SHELTON Department: Room: [place] [address] Gender: F Leaf Tier: ALICJA : 1975 Requested By: Ashwini Mosley Order Number: [id number] Reading MD: Berry Santos Measurements Intervals [place] Rate: 60 P: 39 NE: 153 QRS: 5 QRSD: 95 T: 150 QT: 423 QTc: 423 Interpretive Statements Normal sinus rhythm Slightly poor precordial R-wave progression Marked repolarization abnormalities Slightly slower rate but otherwise unchanged from 04/04/17 Impressive QT prolongation, in keeping with overdose of psychotropic therapy Electronically Signed On 04-06-2017 8:31:56 EDT by Berry Santos
--- NOTE | 2017-04-06 09:27 | CR ---
DATE OF CONSULTATION: 04/06/2017 REFERRING PHYSICIAN: Rajan Dove MD INDICATION: Troponin elevation and abnormal ECG. HISTORY OF PRESENT ILLNESS: Mrs. Gray is a 41-year-old female who is a patient of my partner Dr. Mccartney. He has been following her principally for arterial hypertension. She does not have any prior history of coronary artery disease. She presented to [facility] after ingestion of unknown substance. She was actually discharged the same day from the psychiatric [facility] and apparently after she came home she took a handful of medications. She does not recall what the medications were. She was then driving her car. She cannot really explain to me what was the goal or where she was going, but then she started feeling unwell, pulled over to the gas station and when she was sitting on the curb an ambulance was called. She was brought initially to psych [facility] but then when it was noted that she has abnormality on EKG and her troponin was elevated. She was brought to PCU status. The troponin peaked little over 1.7. She did have mild chest discomfort across the chest that in her description has been steady since admission without any obvious fluctuation. The ECG revealed rather bizarre QRS complexes with very long QT interval. An echocardiogram interpreted by Dr. Santos was consistent with takotsubo cardiomyopathy with basal segments of left ventricle being hyperdynamic and apical segments akinetic with ballooning. Overall left ventricular systolic function was preserved. When I talked to the patient yesterday afternoon she felt well, but for minimal chest discomfort. This morning there has been no change. She no longer reports pain and she feels well. PAST MEDICAL HISTORY: 1. A longstanding history of arterial hypertension. She was evaluated for underlying CAD in [place] 2 years ago and a stress test was reportedly negative. She has a history of depression with suicidal ideation and multiple attempts. 2. Fibromyalgia. 3. Low back pain. 4. History of urinary retention. SURGICAL HISTORY: Positive for . Uterine ablation. Hysterectomy. Low back surgery. Cystoscopy. FAMILY HISTORY: Both parents have dementia and hypertension. She has one well sister and she has three children, sons. They are all healthy. SOCIAL HISTORY: The patient is single, lives in [place]. Works at [employer]. Denies any history of alcohol or illicit substance use. OUTPATIENT MEDICATIONS: Unfortunately, unavailable. The patient does not recall what medications she was taking and she does not recall what medications she took in her apparent suicidal attempt. REVIEW OF SYSTEMS: She denies any fever, chills, nausea or vomiting recently. She denies any chest discomfort prior to this event. She does get short of breath with activity, but principal limitations are due to back pain. There is no history of syncope, near syncope or palpitations and no peripheral edema. PHYSICAL EXAMINATION: Blood pressure 105/60, heart rate has been running in bradycardiac range in 50s and 60s. She is afebrile. Saturation 94% on room air. Her fluid balance is approximately equal. Weight has not been documented yet this morning, but was 96.5 kg yesterday. She is an obese middle-aged female. She appears approximately her age. Her behavior seems a little juvenile to me, but does not appear depressed and she specifically denies any depression. When I entered the room yesterday, she was actually kissing with her boyfriend and it took a little bit to make them stop the activity. Her JVP does not appear elevated. I do not appreciate any carotid bruits. Lungs are clear to auscultation with good air movement bilaterally. Heart exam reveals regular rhythm. No gallop, rub or murmur. Abdomen is obese but soft. No hepatosplenomegaly. Extremities are free of edema. There are good peripheral pulses. Neurologically she is alert and oriented and appropriate. There is symmetrical strength and I do not appreciate any focal signs or weakness. Laboratory hunter, normal CBC, normal basic metabolic panel. Troponin peaked at 1.79. CK was never elevated. CK-MB the maximum was 12.1. Lipid panel, total cholesterol 186, LDL 97, HDL of [address] angiography of the chest was negative for pulmonary embolism. An echocardiogram was performed on 04/03 and reveals overall LVEF of 60% with apical ballooning and hyperdynamic basal segments of left ventricle and no significant valvular disease. Pulmonary artery pressure likely normal or near normal. There are several ECGs on her chart. The one prior to his admission from March 29 was relatively normal. The initial one on admission revealed bizarre looking wide QRS complexes with very long QT interval and diffuse T-wave inversions, which I would consider consistent with probably drug toxicity. The second one on 04/04, sinus rhythm with ventricular rate 68 beats per minute. There is borderline poor R-wave progressions and diffuse negative T-waves throughout all precordial leads and one in aVL with very long QT interval, which is again consistent with both toxicity as well as stress induced cardiomyopathy and eventually the EKG this morning again reveals unchanged pattern with equally prolonged QT interval that reaches almost 600 milliseconds. ASSESSMENT/PLAN: Mrs. Gray is a 41-year-old female who came with suicidal attempt after ingestion of a hand full of pills. She does not recall what the medications were, but she tells me that she might be able to find out and I asked her to call her family and bring the bottles so we can review what she actually took. She did have altered mental status initially. There is evidence for troponin elevation, profound repolarization abnormalities on EKG and a very long QT interval. Considering the typical picture on an echocardiogram, together with fairly typical evolving EKG abnormalities, I suspect that indeed this represents stress induced cardiomyopathy. Because it has been several days from her presentation, I do not believe that it is necessary to bring her for a cardiac catheterization. I would treat her conservatively. Usually the hallmark of intervention is administration of beta blockers, but because she is quite bradycardic I do not think it is possible. I will give her aspirin, statin and PAPO inhibitor as is being done. I do not recommend transferring her to the psychiatric ib[facility] as yet. Because of very long QT interval, she should continue monitoring even though she has not had any arrhythmias as yet. I do foresee that there will be improvement over next several days, but I am reluctant to let her go without monitoring until the QT interval comes at least close to normal range. REJID
[2017-04-06] MEDS: LISINOPRIL 20 MG TAB PO SCH (09:34)
[2017-04-06] MEDS: ENOXAPARIN 40 MG/0.4 ML SYRINGE (J1650) SC SCH (09:34)
[2017-04-06] MEDS: amLODIPine 10 MG TAB PO SCH (09:34)
[2017-04-06] MEDS: ASPIRIN 81 MG ENTERIC TAB PO SCH (09:34)
[2017-04-06] MEDS: PRAVASTATIN 20 MG TAB PO SCH (13:32)
--- NOTE | 2017-04-06 15:14 | IPNPDOC ---
Text Note Date of Service The patient was seen on 04/06/17. NOTE Subjective: Patient was seen and examined at the bedside. She reports that she has burning with urination this morning. She denies any chest pain, shortness of breath or palpitations. Objective: Vitals (See below) General: Lying in bed, no acute distress, comfortable, AAOx3 HEENT: NC, AT CVS: RRR, +S1S2 Lungs: Fair air entry b/l, -w/r/r Abdomen: Soft, ND, NT, +BSx4 Extremities: +PPx4, - Edema, - Calf tenderness Assessment and plan: 1. Abnormal EKG - possibly 2/2 stress induced cardiomyopathy (Takotsubo's) - Presented from [facility] because of prolonged QTc - Physical un-revealing - Troponin elevated at 1.79; has been trending down - ECHO 04/04: stress induced cardiomyopathy, Normal EF, apical LV ballooning and hyperkinetic proximal portions of the LV, impaired LV diastolic function - EKG 04/06 - prolonged QTc, but T wave inversions in I, AvL, V2-6 - Dr. Mosley following patient; c/w ASA, Statin and PAPO-Inhibitor; no beta clarisse possible (re: bradycardic) 2. Elevated troponins - see above 3. Depression with suicidal ideations - Recent history of overdose attempt - Hold anti-depressants at this time (re: prolonged QTc) - Will return back to [facility] upon medical clearance - c/w one-to-one observation / suicide precautions 4. HTN - well controlled - c/w PAPO-I 5. Burning with urination, likely 2/2 UTI - UA abnormal - Urine culture pending - Will start Ceftriaxone now 6. DVT prophylaxis - c/w Lovenox VS,Fishbone, I+O VS, Fishbone, I+O Laboratory Tests 04/06/17 04:46 Red Blood Count 4.01, Mean Corpuscular Volume 95.9, Mean Corpuscular Hemoglobin 33.0, Mean Corpuscular Hemoglobin Concent 34.4, Red Cell Distribution Width 13.6 , Calcium Level 8.5 Vital Signs Date Time Temp Pulse Resp B/P (MAP) Pulse Ox O2 Delivery O2 Flow Rate FiO2 04/06/17 11:53 129/71 04/06/17 11:43 97.7 66 18 96 Room Air I&O- Last 24 Hours up to 6 AM 04/06/17 06:00 Intake Total 840 ml Output Total 225 ml Balance 615 ml KAZ SOLER MD April 06, 2017 15:14
[2017-04-06] MEDS: cefTRIAXone SOD 1 GM in D5W MINI-BAG PLUS 50 ML IV SCH (16:25)
[2017-04-06] MEDS: ACETAMINOPHEN TAB 650MG DOSE (2X325MG) PO PRN (20:05)
[2017-04-07] VITALS (8 sets, daily range): BP systolic 107–142; BP diastolic 58–98
[2017-04-07 04:40] LABS: MEAN CORPUSCULAR HEMOGLOBIN 32.5 pg (27.0-33.0); MEAN CORPUSCULAR VOLUME 95.5 fl (80.0-96.0); RED CELL DISTRIBUTION WIDTH 13.6 % (11.5-14.5); WHITE BLOOD COUNT 7.3 K/mm3 (4.0-10.0)
[2017-04-07 05:11] LABS: ANION GAP 8 MEQ/L (8-16); BLOOD UREA NITROGEN 13 MG/DL (7-18); CALCIUM LEVEL 8.4 MG/DL (8.5-10.1); CARBON DIOXIDE LEVEL 27 MEQ/L (21-32); CHLORIDE LEVEL 108 MEQ/L (98-107); CREATININE FOR GFR 0.62 MG/DL (0.55-1.02); GLOMERULAR FILTRATION RATE > 60.0 (>58); GLUCOSE, FASTING 91 MG/DL (70-105); MAGNESIUM LEVEL 2.3 MG/DL (1.8-2.4); POTASSIUM SERUM 3.8 MEQ/L (3.5-5.1); SODIUM LEVEL 143 MEQ/L (136-145)
[2017-04-07] MEDS: SLF 3 ML SYR IV SCH ×3 (05:29→21:30)
[2017-04-07] MEDS: hydrALAZINE INJ 20 MG/ML VIAL IV SCH ×2 (05:29)
--- NOTE | 2017-04-07 07:36 | IPN ---
DATE: 04/07/2017 Mrs. Gray had no events overnight and there were no telemetry detected arrhythmias. She was able to ambulate around intensive care unit (ICU) and progressive care unit (PCU) and had no trouble doing so. She still has occasional, very mild chest discomfort that seems to be reproducible by palpation. Today, she tells me that there is no way how she could find out what medications she took even though yesterday she told me that it would be possible to find out from the bottles of the medications. Vital signs: Blood pressure 110/61, heart rate in 50s, rarely 60s and low 70s. She is afebrile. Saturation is 98% on room air. Fluid balance yesterday approximately equal. Weight has not been documented yet. She is alert and oriented and appropriate. Her jugular venous pulse (JVP) is not up. Lungs are clear. Heart exam: Regular rhythm. No gallop, rub or murmur. Abdomen soft, nontender. No peripheral edema. Good peripheral pulses. Laboratory hunter: Normal CBC and normal basic metabolic panel. ECG this morning is pending. ASSESSMENT AND PLAN: Mrs. Gray is a 41-year-old female with longstanding history of depression and suicidal attemps. She again took some medications when supposed suicidal attempt that led to altered mental status. Subsequently, there was evidence for myocardial injury with troponin elevation and precordial T-wave inversions on EKG. Echocardiogram revealed apical ballooning. This presentation is most consistent with so-called stress induced cardiomyopathy. She has been improving clinically. Even though normally we would like to introduce beta-blockers, it is not possible because she is very bradycardic. She is on angiotensin-converting enzyme (PAPO) inhibitors, aspirin and statins. I do expect that we will allow patient to go to psychiatric [facility], but I am still not willing to let patient go off telemetry because of very long QT interval. Even though there have been no arrhythmia, there is certainly increased risk of those sounds. I think it is prudent to keep monitoring on telemetry until we see at least some improvement of QT. I do not expect that we will have to monitor until the QT interval completely normalizes.
[2017-04-07] MEDS: ASPIRIN 81 MG ENTERIC TAB PO SCH (08:59)
[2017-04-07] MEDS: ENOXAPARIN 40 MG/0.4 ML SYRINGE (J1650) SC SCH (08:59)
[2017-04-07] MEDS: PRAVASTATIN 20 MG TAB PO SCH (08:59)
[2017-04-07] MEDS: amLODIPine 10 MG TAB PO SCH (09:00)
[2017-04-07] MEDS: LISINOPRIL 20 MG TAB PO SCH (09:00)
--- NOTE | 2017-04-07 12:03 | IPNPDOC ---
Text Note Date of Service The patient was seen on 04/07/17. NOTE Subjective: Patient was seen and examined at the bedside. She notes that her burning with urination has improved. She again denies any chest pain, shortness of breath, or palpitations. Objective: Vitals (See below) General: Lying in bed, no acute distress, comfortable, AAOx3 HEENT: NC, AT CVS: RRR, +S1S2 Lungs: Fair air entry b/l, -w/r/r Abdomen: Soft, ND, NT, +BSx4 Extremities: +PPx4, - Edema, - Calf tenderness Assessment and plan: 1. Abnormal EKG - possibly 2/2 stress induced cardiomyopathy (Takotsubo's) - Presented from [facility] because of prolonged QTc - Physical un-revealing - Troponin elevated at 1.79; has been trending down - ECHO 04/04: stress induced cardiomyopathy, Normal EF, apical LV ballooning and hyperkinetic proximal portions of the LV, impaired LV diastolic function - EKG 04/06 - prolonged QTc, but T wave inversions in I, AvL, V2-6; will get repeat EKG to evaluate QTc; awaiting normalization of T wave changes - Dr. Mosley following patient; c/w ASA, Statin and PAPO-Inhibitor; no beta clarisse possible (re: bradycardic) 2. Elevated troponins - see above 3. Depression with suicidal ideations - Recent history of overdose attempt - Hold anti-depressants at this time (re: prolonged QTc) - Will return back to [facility] upon medical clearance - c/w one-to-one observation / suicide precautions 4. HTN - well controlled - c/w PAPO-I 5. Burning with urination, likely 2/2 UTI - Symptoms improving - UA consistent with infection - Urine culture pending - c/w Ceftriaxone (Day #2) 6. DVT prophylaxis - c/w Lovenox VS,Fishbone, I+O VS, Fishbone, I+O Laboratory Tests 04/07/17 04:23 Red Blood Count 3.99 L, Mean Corpuscular Volume 95.5, Mean Corpuscular Hemoglobin 32.5, Mean Corpuscular Hemoglobin Concent 34.0, Red Cell Distribution Width 13.6, Calcium Level 8.4 L Vital Signs Date Time Temp Pulse Resp B/P (MAP) Pulse Ox O2 Delivery O2 Flow Rate FiO2 5/24/17 09:00 60 04/07/17 09:00 122/73 04/07/17 08:00 98.4 18 98 Room Air I&O- Last 24 Hours up to 6 AM 04/07/17 06:00 Intake Total 480 ml Output Total 0 ml Balance 480 ml KAZ SOLER MD April 07, 2017 12:03
[2017-04-07] MEDS: cefTRIAXone SOD 1 GM in D5W MINI-BAG PLUS 50 ML IV SCH (15:16)
[2017-04-07] MEDS: ATORVASTATIN 10 MG TAB PO SCH (21:30)
[2017-04-08 04:00] VITALS: BP 124/72
[2017-04-08 05:21] LABS: MEAN CORPUSCULAR HEMOGLOBIN 32.7 pg (27.0-33.0); MEAN CORPUSCULAR HGB CONC 34.1 g/dl (32.0-36.5); MEAN CORPUSCULAR VOLUME 95.9 fl (80.0-96.0); RED CELL DISTRIBUTION WIDTH 13.8 % (11.5-14.5); WHITE BLOOD COUNT 7.6 K/mm3 (4.0-10.0)
[2017-04-08 05:37] LABS: ANION GAP 9 MEQ/L (8-16); BLOOD UREA NITROGEN 10 MG/DL (7-18); CALCIUM LEVEL 8.4 MG/DL (8.5-10.1); CARBON DIOXIDE LEVEL 25 MEQ/L (21-32); CHLORIDE LEVEL 108 MEQ/L (98-107); CREATININE FOR GFR 0.63 MG/DL (0.55-1.02); GLOMERULAR FILTRATION RATE > 60.0 (>58); GLUCOSE, FASTING 94 MG/DL (70-105); MAGNESIUM LEVEL 2.3 MG/DL (1.8-2.4); POTASSIUM SERUM 3.7 MEQ/L (3.5-5.1); SODIUM LEVEL 142 MEQ/L (136-145)
[2017-04-08] MEDS: SLF 3 ML SYR IV SCH ×3 (06:00→21:30)
[2017-04-08 07:30] VITALS: BP 131/90
--- NOTE | 2017-04-08 07:56 | IPN ---
DATE: 04/08/2017 I did not actually see the patient this morning. I talked to the nursing staff. She has been doing well and there have not been any arrhythmic events. Her vital signs remain stable with systolic blood pressure 120s and 130s, heart rate is from 50s to 70s and she is afebrile. Laboratory-hunter, she has a normal basic metabolic panel and normal CBC. Her ECG continues to demonstrate long QT interval, but there has been improvement since yesterday and the QT is probably around 460 ms. This is very encouraging and I believe that by tomorrow it is likely that the QT interval will be sufficiently shorter in order for her to go to the psychiatric ibar[facility]. Otherwise, I would continue same treatment.
[2017-04-08] MEDS: PRAVASTATIN 20 MG TAB PO SCH (08:52)
[2017-04-08] MEDS: amLODIPine 10 MG TAB PO SCH (08:52)
[2017-04-08] MEDS: ASPIRIN 81 MG ENTERIC TAB PO SCH (08:52)
[2017-04-08] MEDS: LISINOPRIL 20 MG TAB PO SCH (08:52)
[2017-04-08] MEDS: ENOXAPARIN 40 MG/0.4 ML SYRINGE (J1650) SC SCH (08:53)
--- NOTE | 2017-04-08 11:55 | IPNPDOC ---
Text Note Date of Service The patient was seen on 04/08/17. NOTE Subjective: Patient was seen and examined at the bedside. She is currently out of the ICU and on the telemetry floor. She does not have any complaints today. I have advised her that we will continue EKG until there is normalization of her QTc. Objective: Vitals (See below) General: Lying in bed, no acute distress, comfortable, AAOx3 HEENT: NC, AT CVS: RRR, +S1S2 Lungs: Fair air entry b/l, -w/r/r Abdomen: Soft, ND, NT, +BSx4 Extremities: +PPx4, - Edema, - Calf tenderness Assessment and plan: 1. Abnormal EKG - possibly 2/2 stress induced cardiomyopathy (Takotsubo's) - Presented from [facility] because of prolonged QTc - Physical un-revealing - Troponin elevated at 1.79; has been trending down - ECHO 04/04: stress induced cardiomyopathy, Normal EF, apical LV ballooning and hyperkinetic proximal portions of the LV, impaired LV diastolic function - EKG 04/06 - manually measured QT are prolonged, T wave inversions in I, AvL, V2 -6 persist - Plan to transfer to [facility] tomorrow if QTc continues to improve - Dr. Mosley following patient; c/w ASA, Statin and PAPO-Inhibitor; no beta clarisse possible (re: bradycardic) 2. Elevated troponins - see above 3. Depression with suicidal ideations - Recent history of overdose attempt - Hold anti-depressants at this time (re: prolonged QTc) - Will return back to [facility] upon medical clearance - c/w one-to-one observation / suicide precautions 4. HTN - well controlled - c/w PAOP-I 5. Burning with urination, likely 2/2 UTI - Symptoms continue to improve - UA consistent with infection - Urine culture: Enterococcus faecalis / Staph. Simulans - c/w Ceftriaxone (Day #3) 6. DVT prophylaxis - c/w Lovenox VS,Fishbone, I+O VS, Fishbone, I+O Laboratory Tests 04/08/17 04:50 Red Blood Count 3.97 L, Mean Corpuscular Volume 95.9, Mean Corpuscular Hemoglobin 32.7, Mean Corpuscular Hemoglobin Concent 34.1, Red Cell Distribution Width 13.8, Calcium Level 8.4 L Vital Signs Date Time Temp Pulse Resp B/P (MAP) Pulse Ox O2 Delivery O2 Flow Rate FiO2 04/08/17 08:52 110 131/90 04/08/17 07:30 97.6 20 100 Room Air I&O- Last 24 Hours up to 6 AM 04/08/17 06:00 Intake Total 970 ml Output Total 0 ml Balance 970 ml KAZ SOLER MD April 08, 2017 11:55
[2017-04-08 12:00] VITALS: BP 122/77
--- NOTE | 2017-04-08 14:25 | ECGEPIP ---
Stationary ECG Study [facility] Test Date: 2017-04-07 Pat Name: JACE SHELTON Department: Room: [place] [address] Gender: F [employer] Att[employer]: KIYA : 1975 Requested By: KAZ SOLER Order Number: [id number] Reading MD: Berry Santos Measurements Intervals [place] Rate: 58 P: 46 WI: 151 QRS: 0 QRSD: 90 T: 151 QT: 432 QTc: 427 Interpretive Statements Sinus bradycardia Marked repolarization abnormalities No significant change from 04/06/17 Electronically Signed On 04-08-2017 14:25:04 EDT by Berry Santos
--- NOTE | 2017-04-08 14:37 | ECGEPIP ---
Stationary ECG Study [facility] Test Date: 2017-04-08 Pat Name: JACE SHELTON Department: Room: [place] [address] Gender: F Facilities Manager: REBEKA : 1975 Requested By: Ashwini Mosley Order Number: [id number] Reading MD: Berry Santos Measurements Intervals [place] Rate: 56 P: 49 RI: 145 QRS: 15 QRSD: 90 T: 164 QT: 430 QTc: 416 Interpretive Statements Sinus bradycardia Diffuse repolarization abnormalities Definite improvement in ST/T-wave appearance from prior daily serial tracings Electronically Signed On 04-08-2017 14:36:46 EDT by Berry Santos
[2017-04-08] MEDS: cefTRIAXone SOD 1 GM in D5W MINI-BAG PLUS 50 ML IV SCH (14:58)
[2017-04-08 16:00] VITALS: BP 146/57
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
[2017-04-08 20:00] VITALS: BP 136/77
[2017-04-08] MEDS: ATORVASTATIN 10 MG TAB PO SCH (21:29)
[2017-04-09] VITALS (7 sets, daily range): BP systolic 108–132; BP diastolic 64–85
[2017-04-09 05:17] LABS: MEAN CORPUSCULAR HEMOGLOBIN 32.6 pg (27.0-33.0); MEAN CORPUSCULAR HGB CONC 34.3 g/dl (32.0-36.5); RED CELL DISTRIBUTION WIDTH 13.5 % (11.5-14.5); WHITE BLOOD COUNT 7.5 K/mm3 (4.0-10.0)
[2017-04-09 05:33] LABS: ANION GAP 7 MEQ/L (8-16); BLOOD UREA NITROGEN 11 MG/DL (7-18); CALCIUM LEVEL 8.3 MG/DL (8.5-10.1); CARBON DIOXIDE LEVEL 26 MEQ/L (21-32); CHLORIDE LEVEL 108 MEQ/L (98-107); CREATININE FOR GFR 0.63 MG/DL (0.55-1.02); GLOMERULAR FILTRATION RATE > 60.0 (>58); GLUCOSE, FASTING 88 MG/DL (70-105); MAGNESIUM LEVEL 2.4 MG/DL (1.8-2.4); POTASSIUM SERUM 3.9 MEQ/L (3.5-5.1); SODIUM LEVEL 141 MEQ/L (136-145)
[2017-04-09] MEDS: SLF 3 ML SYR IV SCH ×3 (05:43→20:56)
--- NOTE | 2017-04-09 08:44 | IPN ---
DATE: 04/10/2017 Mrs. Gray remains virtually asymptomatic. I did review her ECG and indeed she continues to have very prolonged QT interval. There is no appreciable change since yesterday. Consequently, even though she has not had any arrhythmias on telemetry, I do recommend ongoing telemetry monitoring. I would like to see at least some improvement before she gets moved to psychiatric ibarra. She also needs to be monitored in the future if new medications with potential for QT prolongation are introduced. Dr. Mccartney will start coverage tomorrow.
[2017-04-09] MEDS: amLODIPine 10 MG TAB PO SCH (09:50)
[2017-04-09] MEDS: ENOXAPARIN 40 MG/0.4 ML SYRINGE (J1650) SC SCH (09:50)
[2017-04-09] MEDS: PRAVASTATIN 20 MG TAB PO SCH (09:50)
[2017-04-09] MEDS: ASPIRIN 81 MG ENTERIC TAB PO SCH (09:50)
[2017-04-09] MEDS: LISINOPRIL 20 MG TAB PO SCH (09:50)
--- NOTE | 2017-04-09 14:55 | IPNPDOC ---
Text Note Date of Service The patient was seen on 04/09/17. NOTE Subjective: Patient was seen and examined at the bedside. She has no new complaints today. I have advised her that her QTc remains prolonged and she will require continuous monitoring until she is improved. Objective: Vitals (See below) General: Lying in bed, no acute distress, comfortable, AAOx3 HEENT: NC, AT CVS: RRR, +S1S2 Lungs: Fair air entry b/l, -w/r/r Abdomen: Soft, ND, NT, +BSx4 Extremities: +PPx4, - Edema, - Calf tenderness Assessment and plan: 1. Abnormal EKG - possibly 2/2 stress induced cardiomyopathy (Takotsubo's) - Presented from [facility] because of prolonged QTc - Physical un-revealing - Troponin elevated at 1.79; has been trending down - ECHO 04/04: stress induced cardiomyopathy, Normal EF, apical LV ballooning and hyperkinetic proximal portions of the LV, impaired LV diastolic function - EKG again continues to shows ischemic changes in anteriolateral leads and QTc prolongation (worsened from yesterday) - Plan to transfer to [facility] when QTc continues to improve - c/w ASA, Statin and PAPO-Inhibitor; no beta clarisse possible (re: bradycardic) - Dr. Mosley / Dr. Bib concepcion - appreciate their input 2. Elevated troponins - see above 3. Depression with suicidal ideations - Recent history of overdose attempt - Hold anti-depressants at this time (re: prolonged QTc) - Will return back to [facility] upon medical clearance - Psychiatry has evaluated patient; ready for acceptance when medically cleared - c/w one-to-one observation / suicide precautions 4. HTN - well controlled - c/w PAPO-I 5. Burning with urination, likely 2/2 UTI - Symptoms continue to improve - UA consistent with infection - Urine culture: Enterococcus faecalis / Staph. Simulans - c/w Ceftriaxone (Day #4) 6. DVT prophylaxis - c/w Lovenox VS,Fishbone, I+O VS, Fishbone, I+O Laboratory Tests 04/09/17 04:54 Red Blood Count 3.90 L, Mean Corpuscular Volume 95.0, Mean Corpuscular Hemoglobin 32.6, Mean Corpuscular Hemoglobin Concent 34.3, Red Cell Distribution Width 13.5, Calcium Level 8.3 L Vital Signs Date Time Temp Pulse Resp B/P (MAP) Pulse Ox O2 Delivery O2 Flow Rate FiO2 04/09/17 12:00 98.6 56 18 111/67 (82) 97 Room Air I&O- Last 24 Hours up to 6 AM 04/09/17 05:59 Intake Total 1520 ml Output Total 0 ml Balance 1520 ml KAZ SOLER MD April 09, 2017 14:55
[2017-04-09] MEDS: cefTRIAXone SOD 1 GM in D5W MINI-BAG PLUS 50 ML IV SCH (16:13)
--- NOTE | 2017-04-09 19:49 | ECGEPIP ---
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
[2017-04-09] MEDS: ATORVASTATIN 10 MG TAB PO SCH (20:56)
[2017-04-10 04:45] VITALS: BP 119/64
[2017-04-10 05:46] LABS: MEAN CORPUSCULAR HEMOGLOBIN 32.6 pg (27.0-33.0); MEAN CORPUSCULAR HGB CONC 33.9 g/dl (32.0-36.5); MEAN CORPUSCULAR VOLUME 96.2 fl (80.0-96.0); RED CELL DISTRIBUTION WIDTH 13.3 % (11.5-14.5); WHITE BLOOD COUNT 8.2 K/mm3 (4.0-10.0)
[2017-04-10 05:50] LABS: ANION GAP 5 MEQ/L (8-16); BLOOD UREA NITROGEN 11 MG/DL (7-18); CALCIUM LEVEL 8.4 MG/DL (8.5-10.1); CARBON DIOXIDE LEVEL 30 MEQ/L (21-32); CHLORIDE LEVEL 106 MEQ/L (98-107); GLOMERULAR FILTRATION RATE > 60.0 (>58); GLUCOSE, FASTING 94 MG/DL (70-105); MAGNESIUM LEVEL 2.3 MG/DL (1.8-2.4); POTASSIUM SERUM 3.9 MEQ/L (3.5-5.1); SODIUM LEVEL 141 MEQ/L (136-145)
[2017-04-10] MEDS: SLF 3 ML SYR IV SCH ×3 (06:23→20:03)
[2017-04-10 08:00] VITALS: BP 129/82
[2017-04-10] MEDS: ENOXAPARIN 40 MG/0.4 ML SYRINGE (J1650) SC SCH (09:27)
[2017-04-10] MEDS: amLODIPine 10 MG TAB PO SCH (09:28)
[2017-04-10] MEDS: PRAVASTATIN 20 MG TAB PO SCH (09:28)
[2017-04-10] MEDS: ASPIRIN 81 MG ENTERIC TAB PO SCH (09:28)
[2017-04-10] MEDS: LISINOPRIL 20 MG TAB PO SCH (09:28)
[2017-04-10 12:00] VITALS: BP 134/82
--- NOTE | 2017-04-10 13:19 | IPNPDOC ---
Text Note Date of Service The patient was seen on 04/10/17. NOTE Subjective: Patient was seen and examined at the bedside. Patient noted that she was concerned about what inpatient psychiatry would offer her if she went there. I advised her that they have more than medications (ie. discussions and group sessions). Patient was advised that her QTc would be rechecked this morning to determine if it was prolonged; if so she will remain here. Objective: Vitals (See below) General: Lying in bed, no acute distress, comfortable, AAOx3 HEENT: NC, AT CVS: RRR, +S1S2 Lungs: Fair air entry b/l, -w/r/r Abdomen: Soft, ND, NT, +BSx4 Extremities: +PPx4, - Edema, - Calf tenderness Assessment and plan: 1. Abnormal EKG - possibly 2/2 stress induced cardiomyopathy (Takotsubo's) - Presented from [facility] because of prolonged QTc - Physical un-revealing - ECHO 04/04: stress induced cardiomyopathy, Normal EF, apical LV ballooning and hyperkinetic proximal portions of the LV, impaired LV diastolic function - EKG remains unchanged with QTc prolongation of 520 - Sid rediscuss case with psychiatry when medically cleared - c/w ASA, Statin and PAPO-Inhibitor; no beta clarisse possible (re: bradycardic) - Dr. Mosley / Dr. Mccartney following - appreciate their input 2. Elevated troponins - Troponin elevated at 1.79; has been trending down - see above 3. Depression with suicidal ideations - Recent history of overdose attempt - Hold anti-depressants at this time (re: prolonged QTc) - Will return back to [facility] upon medical clearance - Psychiatry has evaluated patient; ready for acceptance when medically cleared - c/w one-to-one observation / suicide precautions 4. HTN - well controlled - c/w PAPO-I 5. Burning with urination, likely 2/2 UTI - Symptoms continue to improve - UA consistent with infection - Urine culture: Enterococcus faecalis / Staph. Simulans - c/w Ceftriaxone (Day #5); will discontinue antibiotics at this time 6. DVT prophylaxis - c/w Lovenox VS,Fishbone, I+O VS, Fishbone, I+O Laboratory Tests 04/10/17 05:15 Red Blood Count 4.07, Mean Corpuscular Volume 96.2 H, Mean Corpuscular Hemoglobin 32.6, Mean Corpuscular Hemoglobin Concent 33.9, Red Cell Distribution Width 13.3, Calcium Level 8.4 L Vital Signs Date Time Temp Pulse Resp B/P (MAP) Pulse Ox O2 Delivery O2 Flow Rate FiO2 04/10/17 12:00 98.4 61 18 134/82 (99) 100 Room Air I&O- Last 24 Hours up to 6 AM 04/10/17 05:59 Intake Total 720 ml Output Total 0 ml Balance 720 ml KAZ SOLER MD April 10, 2017 13:19
[2017-04-10 16:00] VITALS: BP 105/60
--- NOTE | 2017-04-10 16:49 | ECGEPIP ---
Stationary ECG Study 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
[2017-04-10 20:00] VITALS: BP 137/77
[2017-04-10] MEDS: ATORVASTATIN 10 MG TAB PO SCH (20:03)
--- NOTE | 2017-04-10 21:21 | IPN ---
DATE: 04/10/2017 Mrs. Luana Gray was seen earlier this morning. She was in supine in bed in no acute distress at rest, and a sitter was sitting in the room. She denies any complaint of chest pain, shortness of breath, palpitations. She has no orthopnea , pedal edema. She was initially admitted on 04/03/2017 after what seemed to be a suicidal attempt. She was found on admission to have abnormal serum troponin, abnormal EKG, and her echocardiogram revealed findings consistent with apical ballooning syndrome. She is currently on a statin as well as anti-platelet therapy and angiotensin-converting enzyme (PAPO) inhibitor. She was not given any beta clarisse because of her relative bradycardia. She is on deep vein thrombosis (DVT) prophylaxis with Lovenox. She reports no cough, nausea, vomiting, or diarrhea. There is no focal manifestation. PHYSICAL EXAMINATION: Patient is alert and oriented in no acute distress at rest. Her vital signs this morning when I saw her revealed a blood pressure of 129/82 with a pulse of 53, respirations 18, and her maximal temperature was 98.4 degrees Fahrenheit with an oxygen saturation of 99% on room air. HEAD: Atraumatic. NECK: Supple. No jugular venous distention (JVD). LUNGS: Clear bilaterally on auscultation. HEART: Revealed normal S1, S2 without gallops. The point of maximal impulse (PMI ) slightly displaced inferiorly. There is no rub. ABDOMEN: Unremarkable. EXTREMITIES: Revealed no pedal edema. NEUROLOGIC: Negative for focal deficit. LABORATORY DATA: BMP done today revealed a sodium of 141, potassium 3.9, chloride 106, CO2 of 30, BUN 11, creatinine 0.7, GFR more than 60, fasting glucose 94, and calcium 8.4. Serum magnesium is 2.3. CBC revealed a WBC of 8.2, hemoglobin 13.3, hematocrit 39.2, and platelets 269,000. Urinalysis on admission was positive for RBC and leukocyte esterase. There was + 2 bacteruria. Urine culture grew Enterococcus faecalis. Electrocardiogram done today revealed normal sinus rhythm at 51 beats per minute and [address]-T abnormalities noted in the precordial leads as well as the lateral leads. The QT is prolonged, and there was no significant changes when compared with the last four tracings. Mrs. Luana Gray seems to be stable, status post suicidal attempt and consequently stress induced cardiomyopathy/apical balloon syndrome. She has been stable since in the hospital, and she will continue current medications. She is waiting to be transferred to the psychiatric unit, but because of her QT continues to be very prolonged, will keep her here on telemetry. As mentioned above, she is not on beta clarisse. She will have benefited. She has underlying sinus rhythm bradycardia. I will continue to monitor along with you while in the hospital. I have noticed that she had a urinary tract infection (UTI), and I do not see any antibiotics. I will discuss with her hospitalist. I also have noticed that she is on two statins, atorvastatin and pravastatin, and one of them will be discontinued after reviewing last office visit note. VIRGILIO
[2017-04-10 23:59] VITALS: BP 106/56
[2017-04-11 05:11] VITALS: BP 117/63
[2017-04-11] MEDS: SLF 3 ML SYR IV SCH ×3 (06:00→21:28)
[2017-04-11 08:00] VITALS: BP 124/69
[2017-04-11 08:18] LABS: BASO % 0.5 % (0.0-1.0); EOS # 0.1 K/mm3 (0.0-0.50); LARGE UNSTAINED CELL # 0.1 K/mm3 (0.0-0.4); LARGE UNSTAINED CELL % 1.6 % (0.0-4.0); LYMPH # 1.9 K/mm3 (1.5-4.5); MEAN CORPUSCULAR HEMOGLOBIN 32.4 pg (27.0-33.0); MEAN CORPUSCULAR HGB CONC 34.4 g/dl (32.0-36.5); MEAN CORPUSCULAR VOLUME 94.2 fl (80.0-96.0); MONO # 0.4 K/mm3 (0.0-0.8); NEUTROPHILS % 61.9 % (36.0-66.0); PLATELET COUNT, AUTOMATED 263 k/mm3 (150-450); RED CELL DISTRIBUTION WIDTH 13.4 % (11.5-14.5); WHITE BLOOD COUNT 6.5 K/mm3 (4.0-10.0)
[2017-04-11 08:30] LABS: ANION GAP 7 MEQ/L (8-16); BLOOD UREA NITROGEN 9 MG/DL (7-18); CALCIUM LEVEL 8.6 MG/DL (8.5-10.1); CARBON DIOXIDE LEVEL 27 MEQ/L (21-32); CHLORIDE LEVEL 105 MEQ/L (98-107); CREATININE FOR GFR 0.64 MG/DL (0.55-1.02); GLOMERULAR FILTRATION RATE > 60.0 (>58); GLUCOSE, FASTING 81 MG/DL (70-105); MAGNESIUM LEVEL 2.3 MG/DL (1.8-2.4); PHOSPHORUS LEVEL 2.9 MG/DL (2.5-4.9); POTASSIUM SERUM 3.9 MEQ/L (3.5-5.1); SODIUM LEVEL 139 MEQ/L (136-145)
[2017-04-11] MEDS: amLODIPine 10 MG TAB PO SCH (09:32)
[2017-04-11] MEDS: ASPIRIN 81 MG ENTERIC TAB PO SCH (09:33)
[2017-04-11] MEDS: PRAVASTATIN 20 MG TAB PO SCH (09:33)
[2017-04-11] MEDS: ENOXAPARIN 40 MG/0.4 ML SYRINGE (J1650) SC SCH (09:33)
[2017-04-11] MEDS: LISINOPRIL 20 MG TAB PO SCH (09:33)
--- NOTE | 2017-04-11 11:39 | IPNPDOC ---
Text Note Date of Service The patient was seen on 04/11/17. NOTE Subjective: Patient was seen and examined at the bedside. She currently has no new complaints this morning. Objective: Vitals (See below) General: Lying in bed, no acute distress, comfortable, AAOx3 HEENT: NC, AT CVS: RRR, +S1S2 Lungs: Fair air entry b/l, -w/r/r Abdomen: Soft, ND, NT, +BSx4 Extremities: +PPx4, - Edema, - Calf tenderness Assessment and plan: 1. Abnormal EKG - possibly 2/2 stress induced cardiomyopathy (Takotsubo's) - Presented from [facility] because of prolonged QTc - Physical un-revealing - ECHO 04/04: stress induced cardiomyopathy, Normal EF, apical LV ballooning and hyperkinetic proximal portions of the LV, impaired LV diastolic function - EKG continues to show QTc prolongation - Will reconsult psychiatry when medically cleared - c/w ASA, Statin and PAPO-Inhibitor; no beta clarisse possible (re: bradycardic) - Dr. Mosley / Dr. Bib concepcion - appreciate their input 2. Elevated troponins - Troponin elevated at 1.79; has been trending down - see above 3. Depression with suicidal ideations - Recent history of overdose attempt - Hold anti-depressants at this time (re: prolonged QTc) - Will return back to [facility] upon medical clearance - Psychiatry has evaluated patient; ready for acceptance when medically cleared - c/w one-to-one observation / suicide precautions 4. s/p Burning with urination - likely 2/2 UTI - Symptoms continue to improve - UA consistent with infection - Urine culture: Enterococcus faecalis / Staph. Simulans - s/p Ceftriaxone course of 5 days 5. HTN - well controlled - c/w PAPO-I 6. DLP - c/w Atorvastatin 7. DVT prophylaxis - c/w Lovenox VS,Fishbone, I+O VS, Fishbone, I+O Laboratory Tests 04/11/17 08:01 Red Blood Count 4.05, Mean Corpuscular Volume 94.2, Mean Corpuscular Hemoglobin 32.4, Mean Corpuscular Hemoglobin Concent 34.4, Red Cell Distribution Width 13.4 , Neutrophils (%) (Auto) 61.9, Lymphocytes (%) (Auto) 28.0, Monocytes (%) (Auto ) 6.0 H, Eosinophils (%) (Auto) 2.0, Basophils (%) (Auto) 0.5, Neutrophils # ( Auto) 4.0, Lymphocytes # (Auto) 1.9, Monocytes # (Auto) 0.4, Eosinophils # (Auto ) 0.1, Basophils # (Auto) 0.0, Calcium Level 8.6 Vital Signs Date Time Temp Pulse Resp B/P (MAP) Pulse Ox O2 Delivery O2 Flow Rate FiO2 04/11/17 09:33 124/69 04/11/17 09:32 54 04/11/17 08:00 97.6 18 100 Room Air I&O- Last 24 Hours up to 6 AM 04/11/17 05:59 Intake Total 420 ml Output Total 0 ml Balance 420 ml KAZ SOLER MD April 11, 2017 11:39
[2017-04-11 12:00] VITALS: BP_SYST 113; BP_SYST 125; BP_DIAS 54; BP_DIAS 72
--- NOTE | 2017-04-11 13:43 | IPN ---
DATE OF SERVICE: 04/11/2017 Mrs. Luana Gray was seen earlier today. She was in supine in bed in no acute distress at rest, and there was a sitter in the room. She has no specific complaints of chest pain, shortness of breath, palpitations. There is no report of bleeding. She has been ambulating in the room. She denies any cough. There is no focal manifestation. The pravastatin was discontinued, and she will continue the atorvastatin, and this was discussed with the nurse in charge. On physical examination, the patient is alert and oriented, in no acute distress at rest. Her last vital signs revealed a blood pressure of 113/72 with a pulse of 51, respirations 18, and her maximal temperature is 98.6 degrees Fahrenheit with an oxygen saturation of 100% on room air. Examination of the lungs: Unremarkable. The heart examination revealed normal S1 and S2 without gallops. LABORATORY DATA: CBC done today revealed a WBC of 6.5, hemoglobin 13.1, hematocrit 38.2, and platelets 263,000. BMP revealed a sodium of 139, potassium 3.9, chloride 105, CO2 of 27, BUN 9, creatinine 0.64, GFR more than 60, fasting glucose 81, and calcium 8.6. Serum magnesium is 2.3. Electrocardiogram done today, and it will be reviewed. IMPRESSION: Mrs. Luana Gray seems to be stable from a cardiac point of view, status post suicidal attempt, stress-induced cardiomyopathy/apical balloon syndrome/takotsubo cardiomyopathy. She also has underlying abnormal electrocardiogram (EKG) with a prolonged QT interval from the medications she has used for a suicide attempt. She will continue current medications. She is not on beta clarisse because of her relative bradycardia. She will be monitored on telemetry for now. Please do not hesitate to call if any questions. VIRGILIO
[2017-04-11 16:00] VITALS: BP 141/80
--- NOTE | 2017-04-11 19:16 | ECGEPIP ---
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
[2017-04-11 20:00] VITALS: BP 115/71
[2017-04-11] MEDS: ATORVASTATIN 10 MG TAB PO SCH (21:27)
[2017-04-12] VITALS: BP 111/66
[2017-04-12 04:00] VITALS: BP 98/64
[2017-04-12 05:18] LABS: MEAN CORPUSCULAR HEMOGLOBIN 32.3 pg (27.0-33.0); MEAN CORPUSCULAR HGB CONC 33.8 g/dl (32.0-36.5); MEAN CORPUSCULAR VOLUME 95.5 fl (80.0-96.0); RED CELL DISTRIBUTION WIDTH 13.2 % (11.5-14.5); WHITE BLOOD COUNT 7.7 K/mm3 (4.0-10.0)
[2017-04-12 05:33] LABS: ANION GAP 5 MEQ/L (8-16); BLOOD UREA NITROGEN 12 MG/DL (7-18); CALCIUM LEVEL 8.5 MG/DL (8.5-10.1); CARBON DIOXIDE LEVEL 28 MEQ/L (21-32); CHLORIDE LEVEL 106 MEQ/L (98-107); CREATININE FOR GFR 0.65 MG/DL (0.55-1.02); GLOMERULAR FILTRATION RATE > 60.0 (>58); GLUCOSE, FASTING 90 MG/DL (70-105); MAGNESIUM LEVEL 2.3 MG/DL (1.8-2.4); PHOSPHORUS LEVEL 3.2 MG/DL (2.5-4.9); POTASSIUM SERUM 3.6 MEQ/L (3.5-5.1); SODIUM LEVEL 139 MEQ/L (136-145)
[2017-04-12] MEDS: SLF 3 ML SYR IV SCH ×3 (06:00→21:24)
[2017-04-12 07:20] VITALS: BP 115/74
[2017-04-12] MEDS: amLODIPine 10 MG TAB PO SCH (09:07)
[2017-04-12] MEDS: ASPIRIN 81 MG ENTERIC TAB PO SCH (09:07)
[2017-04-12] MEDS: LISINOPRIL 20 MG TAB PO SCH (09:08)
[2017-04-12] MEDS: ENOXAPARIN 40 MG/0.4 ML SYRINGE (J1650) SC SCH (09:08)
[2017-04-12 11:40] VITALS: BP 120/72
--- NOTE | 2017-04-12 12:03 | IPNPDOC ---
Text Note Date of Service The patient was seen on 04/12/17. NOTE Subjective: Patient was seen and examined at the bedside. She was irritated that nothing has been happening over the last few days. She wanted to sign out AMA, advised that this was not possible. Discussed with cardiology and patient that she will be seen by psychiatry today and started on medications prior to transfer to [facility]. Objective: Vitals (See below) General: Lying in bed, no acute distress, comfortable, AAOx3 HEENT: NC, AT CVS: RRR, +S1S2 Lungs: Fair air entry b/l, -w/r/r Abdomen: Soft, ND, NT, +BSx4 Extremities: +PPx4, - Edema, - Calf tenderness Assessment and plan: 1. Abnormal EKG - possibly 2/2 stress induced cardiomyopathy (Takotsubo's) - Presented from [facility] because of prolonged QTc - Physical un-revealing - ECHO 04/04: stress induced cardiomyopathy, Normal EF, apical LV ballooning and hyperkinetic proximal portions of the LV, impaired LV diastolic function - EKG continues to show QTc prolongation - c/w ASA, Statin and PAPO-Inhibitor; no beta clarisse possible (re: bradycardic) - Discussed case with Cardiology (Dr. Mccartney); advised that psychiatry should evaluate and start medications at this point in a monitored setting while on telemetry - Discussed case with Psychiatry (Dr. Jenkins); will see the patient today and start medications for depression 2. Elevated troponins - Troponin elevated at 1.79; has been trending down - see above 3. Depression with suicidal ideations - Recent history of overdose attempt - Hold anti-depressants at this time (re: prolonged QTc) - Psychiatry to evaluate today - Will transfer to [facility] tomorrow if no changes on new medications are noted - c/w one-to-one observation / suicide precautions - Not allowed to leave against medical advise - lacks capacity 4. s/p Burning with urination - likely 2/2 UTI - Symptoms continue to improve - UA consistent with infection - Urine culture: Enterococcus faecalis / Staph. Simulans - s/p Ceftriaxone course of 5 days 5. HTN - well controlled - c/w PAPO-I 6. DLP - c/w Atorvastatin 7. DVT prophylaxis - c/w Lovenox VS,Fishbone, I+O VS, Fishbone, I+O Laboratory Tests 04/12/17 04:36 Red Blood Count 3.93 L, Mean Corpuscular Volume 95.5, Mean Corpuscular Hemoglobin 32.3, Mean Corpuscular Hemoglobin Concent 33.8, Red Cell Distribution Width 13.2, Calcium Level 8.5 Vital Signs Date Time Temp Pulse Resp B/P (MAP) Pulse Ox O2 Delivery O2 Flow Rate FiO2 04/12/17 11:40 97.7 70 18 120/72 (88) 96 Room Air I&O- Last 24 Hours up to 6 AM 04/12/17 06:00 Intake Total 640 ml Output Total 0 ml Balance 640 ml KAZ SOLER MD April 12, 2017 12:03
--- NOTE | 2017-04-12 12:19 | IPN ---
DATE: 04/12/2017 Mrs. Luana Gray was seen earlier this morning. She was supine in bed in no acute distress at rest and a sitter was in the room. She denies any chest pain, shortness of breath or palpitations. She has manifested a desire to go home. She has been ambulating in the room. She denies any chest pain. She has no pedal edema or focal manifestation. She has no nausea or vomiting, diarrhea, melena or hematemesis. She denies any bleeding. On physical examination, the patient is alert and oriented, in no acute distress at rest. Vital signs this morning revealed a blood pressure of 115/74 with a pulse of 55, respirations 18, and her maximum temperature is 98.4 degrees Fahrenheit with an oxygen saturation of 99% on room air. Examination of the head is normocephalic, atraumatic. Neck is supple, no jugular venous distention (JVD). Lungs: Clear bilaterally on auscultation. The heart examination revealed normal S1 and S2 without gallops. The PMI is not displaced. There is no rub. Abdomen is soft and nontender. Extremities revealed no pedal edema. Neurological examination is negative for focal deficit. LABORATORIES: CBC done today revealed a WBC of 7.7, hemoglobin 12.7, hematocrit 37.5, and platelets 270,000. BMP revealed a sodium of 139, potassium 3.6, chloride 106, CO2 of 28, BUN 12, creatinine 0.65, GFR more than 60, fasting glucose 90, and calcium 8.5, and phosphorus 3.2. Serum magnesium is 2.3. Electrocardiogram was reviewed and did not reveal any significant changes with sinus bradycardia at 52 beats per minute, no specific ST/T abnormalities noted in the anterolateral leads and prolonged QT. IMPRESSION: Mrs. Luana Gray is stable from a cardiac point of view. EKG abnormalities as described above seem to be more related to her underlying stress induced cardiomyopathy/takotsubo syndrome than the psych medications. The case was discussed earlier today with Dr. Welch and we are going to call psych and she will be started on meds for anxiety/depression while on telemetry and if she remains stable she probably can go home tomorrow or this coming Wednesday. I will see her as an outpatient upon discharge. Her QT interval has improved, but remains at a standstill at about 400 ms. It was a pleasure to participate in the care of Mrs. Luana Gray for her underlying cardiac condition. I will continue to monitor her along with you as we did while in the hospital. Please do not hesitate to call if any questions. VIRGILIO
[2017-04-12] MEDS ORDERED: FLUoxetine 10 MG CAP PO ONE (14:45)
--- NOTE | 2017-04-12 15:23 | MHIPNPDOC ---
[facility] Progress Note Progress Note DATE OF SERVICE: 04/12/17 INTERVAL HISTORY: The patient remains on the medical floor with prolonged QTC. She still feels very upset that the plan is to admit her and feels that people had assumed she' d committed an overdose because of her previous history. She is still appears to be an over denial of her statements in the ER and on the mental health [facility] a week ago when she admitted to an overdose of beta blockers. She describes that she knows she needs medications but feels that she want to do this at home. She's amenable to restarting our home medications. Her providers want to give a trial of her psychiatric medications under monitoring in order to ensure that her QTC will not become unstable when she is discharged. VITAL SIGNS: See below. NEW TEST RESULTS: See below CURRENT MEDICATIONS: See below. MENTAL STATUS EXAMINATION: General: disheveled Speech: coherent Thought processes: coherent Thought content: perseveration on discharge and over denial Abstract reasoning, and computation: intact Description of associations: intact Description of abnormal or psychotic thoughts: makes no threats towards herself or others. Does not appear to be responding to internal stimuli Judgment: poor Insight: poor Orientation: alert and oriented times 3 Recent and remote memory: intact Attention span and concentration: adequate Fund of knowledge: adequate Mood: "fine" Affect: irritable DIAGNOSES: 1. Unspecified depressive disorder. 2. Unspecified anxiety disorder. 3. Borderline traits. ASSESSMENT: 41-year-old woman who overdosed on a large motor beta-blockers, who is still admitted under medical observation, she appears to little understanding of the events that led her to her admission and remains in strong denial MANAGEMENT PLAN: Medications: will restart Prozac 10 mg today, medical team will monitor QTC. At this time the patient is still likely to come to the inpatient psychiatric setting. Recommend continuing one-to-one sitter and do not allow the patient to leave AMA without calling psychiatry. Once the patient is medically stable she will be assessed for formal mission to inpatient psychiatry with legals to be done. TIME SPENT: 20 minutes. Vital Signs Vital Signs Date Time Temp Pulse Resp B/P (MAP) Pulse Ox O2 Delivery O2 Flow Rate FiO2 04/12/17 11:40 97.7 70 18 120/72 (88) 96 Room Air Laboratory Data 24H Labs Laboratory Tests 2 04/12/17 04:36: Anion Gap 5L, Glomerular Filtration Rate > 60.0, Blood Urea Nitrogen 12, Creatinine 0.65, Sodium Level 139, Potassium Level 3.6, Chloride Level 106, Carbon Dioxide Level 28, Calcium Level 8.5, Phosphorus Level 3.2, Magnesium Level 2.3 CBC/BMP Laboratory Tests 04/12/17 04:36 Red Blood Count 3.93 L, Mean Corpuscular Volume 95.5, Mean Corpuscular Hemoglobin 32.3, Mean Corpuscular Hemoglobin Concent 33.8, Red Cell Distribution Width 13.2, Calcium Level 8.5 Current Medications Current Medications Acetaminophen (Tylenol Tab) 650 mg Q4HP PRN PO MILD PAIN OR FEVER Last administered on 04/06/17 20:05; Start 04/03/17 at 12:15; Stop 05/03/17 at 12:14 Amlodipine Besylate (Norvasc) 10 mg DAILY PO Last administered on 04/12/17 09: 07; Start 04/03/17 at 09:00; Stop 05/03/17 at 08:59 Aspirin (Ecotrin) 81 mg DAILY PO Last administered on 04/04/17 08:45; Start at 09:00; Stop 04/04/17 at 15:03; Status DC Aspirin (Ecotrin) 81 mg DAILY PO Last administered on 04/12/17 09:07; Start at 09:00; Stop 05/05/17 at 08:59 Atorvastatin Calcium (Lipitor) 10 mg QHS PO Last administered on 04/11/17 21: 27; Start 04/07/17 at 21:00; Stop 05/07/17 at 20:59 Ceftriaxone Sodium 1 gm/ Dextrose 50 ml @ 100 mls/hr Q24H IV Last administered on 04/09/17 16:13; Start 04/06/17 at 15:30; Stop 04/10/17 at 13:19 ; Status DC Enoxaparin Sodium (Lovenox) 40 mg DAILY SC Last administered on 04/12/17 09:08 ; Start 04/05/17 at 09:00; Stop 04/16/17 at 08:59 Enoxaparin Sodium (Lovenox) 40 mg QHS SC ; Start 04/03/17 at 21:00; Stop at 21:00; Status DC Enoxaparin Sodium (Lovenox) 100 mg Q12H SC Last administered on 04/04/17 06:35 ; Start 04/03/17 at 18:00; Stop 04/04/17 at 15:00; Status DC Fluoxetine HCl (PROzac) 10 mg DAILY PO ; Start 04/13/17 at 09:00; Stop 05/13/17 at 08:59 Hydralazine HCl (Apresoline) 10 mg Q6H IV ; Start 04/03/17 at 18:00; Stop at 07:26; Status DC Lisinopril (Prinivil) 20 mg DAILY PO Last administered on 04/12/17 09:08; Start 04/03/17 at 09:00; Stop 05/03/17 at 08:59 Ondansetron HCl (ZOFRAN INJection) 4 mg Q6HP PRN IV NAUSEA OR VOMITING; Start 04/03/17 at 12:15; Stop 05/03/17 at 12:14 Pravastatin Sodium (Pravachol) 20 mg DAILY PO Last administered on 04/11/17 09 :33; Start 04/06/17 at 09:00; Stop 04/11/17 at 10:25; Status DC Sodium Chloride (Saline Lock Flush) 2 ml ASDIRECTED PRN IV SEE LABEL COMMENTS; Start 04/03/17 at 15:30; Stop 05/03/17 at 15:29 Sodium Chloride (Saline Lock Flush) 2 ml SLF IV Last administered on 04/12/17 14:27; Start 04/03/17 at 22:00; Stop 05/03/17 at 21:59 Allergies Coded Allergies: No Known Allergies (Unverified , 07/17/15) GME ATTESTATION My preceptor for this patient encounter was physically present in the building during the encounter and was fully available. As needed, all aspects of the patient interview, examination, medical decision making process, and medical care plan development were reviewed and approved by the preceptor. Preceptor is aware and concurs with the plan as stated in the body of this note and will attest to such by his/her cosignature. CHARLEE AZAR DO April 12, 2017 15:23
[2017-04-12 15:40] VITALS: BP 106/63
[2017-04-12 20:00] VITALS: BP 121/70; PULSE 53
[2017-04-12] MEDS: ATORVASTATIN 10 MG TAB PO SCH (21:24)
--- NOTE | 2017-04-12 22:10 | ECGEPIP ---
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
[2017-04-13] VITALS: BP 107/66; PULSE 55
[2017-04-13 04:00] VITALS: BP 97/58; PULSE 60
[2017-04-13 05:14] LABS: MEAN CORPUSCULAR HEMOGLOBIN 33.3 pg (27.0-33.0); MEAN CORPUSCULAR HGB CONC 35.1 g/dl (32.0-36.5); MEAN CORPUSCULAR VOLUME 94.9 fl (80.0-96.0); RED CELL DISTRIBUTION WIDTH 13.4 % (11.5-14.5); WHITE BLOOD COUNT 7.3 K/mm3 (4.0-10.0)
[2017-04-13 05:27] LABS: ANION GAP 7 MEQ/L (8-16); BLOOD UREA NITROGEN 11 MG/DL (7-18); CALCIUM LEVEL 8.6 MG/DL (8.5-10.1); CARBON DIOXIDE LEVEL 26 MEQ/L (21-32); CHLORIDE LEVEL 108 MEQ/L (98-107); CREATININE FOR GFR 0.63 MG/DL (0.55-1.02); GLOMERULAR FILTRATION RATE > 60.0 (>58); GLUCOSE, FASTING 88 MG/DL (70-105); MAGNESIUM LEVEL 2.1 MG/DL (1.8-2.4); PHOSPHORUS LEVEL 3.2 MG/DL (2.5-4.9); POTASSIUM SERUM 3.5 MEQ/L (3.5-5.1); SODIUM LEVEL 141 MEQ/L (136-145)
[2017-04-13] MEDS: SLF 3 ML SYR IV SCH ×2 (06:00→13:52)
[2017-04-13 07:40] VITALS: BP 101/65
[2017-04-13] MEDS ORDERED: ASPI81TAEC PO (08:55)
[2017-04-13] MEDS ORDERED: AMLO10TA2 PO (08:55)
[2017-04-13] MEDS ORDERED: FLUO10CA9 PO (08:55)
[2017-04-13] MEDS ORDERED: LISI-538 PO (08:55)
[2017-04-13] MEDS ORDERED: ATOR1TAB19 PO (08:55)
[2017-04-13] MEDS ORDERED: FLUoxetine 10 MG CAP PO SCH (09:00)
[2017-04-13 09:17] VITALS: BP 101/65
[2017-04-13] MEDS: ENOXAPARIN 40 MG/0.4 ML SYRINGE (J1650) SC SCH (09:17)
[2017-04-13] MEDS: amLODIPine 10 MG TAB PO SCH (09:17)
[2017-04-13] MEDS: LISINOPRIL 20 MG TAB PO SCH (09:17)
[2017-04-13] MEDS: ASPIRIN 81 MG ENTERIC TAB PO SCH (09:17)
[2017-04-13 11:55] VITALS: BP 135/68
--- NOTE | 2017-04-13 18:02 | DS.PDOC ---
Discharge Summary General Date of Admission April 03, 2017 at 12:31 Date of Discharge April 13, 2017 Attending Physician: HAYDEE BENSON MD Specialist/Consultants Involve: Ashwini Mosley MD Specialist/Consultants Involve Psychiatry: Dr. Jenkins Psychiatry: Dr. Ramy Puga Cardiology: Dr. Ashwini Mosley Cardiology: Dr. Benton Mccartney Discharge Summary PCP: Cammie IMPLEMENTATION PROJECT COORDINATOR (previous provider) Consults: Cardiology: Dr. Ashwini Mosley Cardiology: Dr. Benton Mccartney Psychiatry: Dr. Jenkins Psychiatry: Dr. Ramy Osborn Discharge diagnosis: Abnormal EKG with Prolonged QTc interval--suspect 2/2 Stress Induced Cardiomyopathy Elevated Troponins Self Harming Behavior Intentional Drug Overdose Suicidal Ideation/Attempt Enterococcus Faecalis/Staphylococcus Simulans UTI Secondary diagnosis: Suicidal Ideation and Attempt (relevant to this admission) Hx of Multiple suicidal ideations and attempts Depression Anxiety Enterococcus Faecalis/Staphylococcus Simulans UTI Hypertension Dyslipidemia Herniated Lumbar Disc Chronic Pain Fibromyalgia Chronic Constipation Hx of Urinary Retention Hospital course: Luana Gray is a 41 yo F who presented to [facility] ED on 04/03/17 after being discharged from previous admission from 03/27-04/02 after being found unresponsive after ingesting a handful of unknown substance of pills (stated to be beta blockers in Psychiatric Consult note). She had just been discharged from the [facility] hospitalization for suicidal ideations. An EKG done overnight on day of admission had shown a widened QRS complex, RBBB, with a prolonged QT interval of 523 and a QTc interval of 645. Troponin was 0.76. Patient was admitted to PCU and monitored on telemetry for further evaluation and management. Patient denied any symptoms and denied any overdosing attempt even though she had admitted that she overdosed to Dr. Murcia of Psychiatry. Of note, patient has a strong hx of overdosing with severe suicidal intent. An echocardiogram done on 04/04/17 showed normal EF of 60%, apical left ventricle ballooning, and hyperkinetic proximal portions of the left ventricle, and impaired left ventricular diastolic function. The echocardiogram findings were suggestive of stress-induced cardiomyopathy (Takotsubo's). Beta blockers were held because patient was bradycardic. Antidepressants were held due to their risk of also inducing QT prolongation. Serial EKGs were done which continued to show QT prolongation. Patient was treated with aspirin, atorvastatin, and lisinopril. Troponin was initially elevated but trended down. Patient was placed on one-to-one observation and suicide precautions. Patient was deemed to have lack of capacity and kept threatening to leave against medical advice. Dr. Mosley of Cardiology was consulted. A CT angiography of the chest was done which was negative for pulmonary embolism. Dr. Mosley's consult note states that patient also initially had altered mental status and patient had was found to have profound repolarization abnormalities on EKG in addition to a prolonged QT interval. Dr. Mosley's interpretation of the echo and EKG findings were indicative of stress-induced cardiomyopathy. He recommended conservative treatment. He also recommended to hold off on the beta blockers, and to continue treatment with aspirin, statin, and an PAPO inhibitor, and for the patient to be monitored on telemetry until her QT interval either normalized or reached close to normal range. Patient was also c/o burning with urination, Urinalysis on admission was positive for RBC and leukocyte esterase. There was +2 bacteruria. Urine cx revealed Enterococcus Faecalis/Staphylococcus Simulans UTI and was treated with ceftriaxone. DVT prophylaxis was given with lovenox. On 04/12/17, after it was deemed that patient was stable enough, she was restarted on antidepressant medications still on the telemetry unit in a monitored setting. Psychiatry was reconsulted for transfer back to [facility]. Was restarted on prozac 10 mg. On 04/13/17, patient was transferred back to [facility]. Dr. Mosley had seen the patient and felt that even though the patient's QT interval was still prolonged , it was not worsening and the patient did not have arrhythmias after more than one week of monitoring. He advised that if there is any new QT prolonging medication that patient receives, that she carefully be monitored with an EKG twice weekly. Dr. Mosley also recommended that should the patient's QT interval normalize on her EKGs, that a stress test or even a coronary angiogram may be warranted. Progress note on date of discharge: Subjective: Patient was seen and examined at bedside sitting up in bed. She denied fevers, chills, chest pain, SOB, nausea, vomiting, abdominal pain, diarrhea, constipation, dizziness, headache. After I informed her of the plan to transfer her back to [facility] today, she acted very resistant and stated that going back there would just cause her to have the same problem again. She had blamed the reason for her being admitted to PCU for being put under a lot of stress in [facility] , which led to her heart condition (according to her statement). Adamantly stated that she was not going back there. I advised and assured her that we would try to find a solution so that she is not put under any kind of stress to the best of our ability. Objective: Vitals: Afebrile. Vital signs stable. Please see below. General: AAO x 3. Cooperative female in NAD sitting up in the bed. Seemed disinterested in conversation. HEENT: Normocephalic atraumatic. Grossly normal hearing bilaterally. No external lesions on nose. Neck: Supple. Heart: Bradycardic rate, regular rhythm, normal S1-S2. No murmurs, rubs, clicks or gallops appreciated. Lungs: Clear to auscultation bilaterally. No wheezes, rales or rhonchi. Abdomen: soft, nontender, nondistended, bowel sounds present. No masses appreciated. Extremities: No lower extremity edema appreciated. Labs: Please see below. CBC and BMP unremarkable today. Assessment: Luana Gray is a 41 yo F who was transferred from the [facility] service where she was being seen for intentional drug overdose, suicidal attempt/ideation, and admitted to the hospitalist team for abnormal EKG findings of prolonged QTC interval suspected to be the result of the drug overdose (thought to be beta blockers). Echocardiogram findings from 04/04 supported takotsubo's/stress- induced cardiomyopathy. She was also found to have an Enterococcus Faecalis/ Staphylococcus simulans UTI. She was treated medically and monitored on PCU with serial EKGs. Patient's QT interval improved even though it did not completely normalize. Patient was safely restarted on prozac, and discharged to [facility]. Disposition: Hemodynamically and clinically stable. Transfer back to [facility]. Follow-up: With PCP and Dr. Mosley in 5-7 days. Activity: As tolerated. Diet: Regular Medications on discharge: Please see below. Time spent on discharge: 35 minutes. Vital Signs/I&Os Vital Signs Date Time Temp Pulse Resp B/P (MAP) Pulse Ox O2 Delivery O2 Flow Rate FiO2 04/13/17 11:55 98.0 67 16 135/68 (90) 100 Room Air I&O- Last 24 Hours up to 6 AM 04/13/17 06:00 Intake Total 1620 ml Balance 1620 ml Laboratory Data Labs 24H Laboratory Tests 2 04/13/17 04:54: Anion Gap 7L, Glomerular Filtration Rate > 60.0, Blood Urea Nitrogen 11, Creatinine 0.63, Sodium Level 141, Potassium Level 3.5, Chloride Level 108H, Carbon Dioxide Level 26, Calcium Level 8.6, Phosphorus Level 3.2, Magnesium Level 2.1 CBC/BMP Laboratory Tests 04/13/17 04:54 Red Blood Count 3.68 L, Mean Corpuscular Volume 94.9, Mean Corpuscular Hemoglobin 33.3 H, Mean Corpuscular Hemoglobin Concent 35.1, Red Cell Distribution Width 13.4, Calcium Level 8.6 Microbiology Microbiology 04/06/17 Urine Culture - Final, Complete Enterococcus Faecalis Staphylococcus Simulans Discharge Medications Scheduled Amlodipine Besylate (Amlodipine Besylate) 10 Mg Tab, 10 MG PO DAILY Amlodipine Besylate (Amlodipine Besylate) 10 Mg Tab, 10 MG PO DAILY for HYPERTENSION Aspirin (Aspirin EC) 81 Mg Tabec, 81 MG PO DAILY Aspirin (Aspirin Low Strength) 81 Mg Chw, 81 MG PO DAILY for CORONARY ARTERY DISEASE Atorvastatin Calcium (Atorvastatin Calcium) 10 Mg Tab, 10 MG PO QHS Atorvastatin Calcium (Atorvastatin Calcium) 10 Mg Tab, 10 MG PO QHS for HYPERCHOLESTEROLEMIA Fluoxetine HCl (Fluoxetine HCl) 10 Mg Cap, 10 MG PO DAILY Fluoxetine HCl (Fluoxetine HCl) 10 Mg Cap, 10 MG PO DAILY for DEPRESSION Lisinopril (Lisinopril) 20 Mg Tab, 20 MG PO DAILY Lisinopril (Lisinopril) 20 Mg Tab, 20 MG PO DAILY for HYPERTENSION Allergies Coded Allergies: No Known Allergies (Unverified , 07/17/15) GME ATTESTATION GME ATTESTATION My preceptor for this patient encounter was Dr. Haydee Benson, and was physically present in the building during the encounter and was fully available. As needed, all aspects of the patient interview, examination, medical decision making process, and medical care plan development were reviewed and approved by the preceptor. Preceptor is aware and concurs with the plan as stated in the body of this note and will attest to such by his/her cosignature. LUIS APONTE OGME-1 April 13, 2017 18:02
--- NOTE | 2017-04-13 22:30 | ECGEPIP ---
Stationary ECG Study [facility] Test Date: 2017-04-13 Pat Name: JACE SHELTON Department: Room: [place] [address] Gender: F Account Service Representative: REBEKA : 1975 Requested By: KAZ SOLER Order Number: [id number] Reading MD: Fuentes Calix Measurements Intervals [place] Rate: 53 P: 51 FL: 165 QRS: 18 QRSD: 101 T: 158 QT: 525 QTc: 495 Interpretive Statements SINUS BRADYCARDIA MODERATE T-WAVE ABNORMALITY, CONSIDER ANTEROLATERAL ISCHEMIA Electronically Signed On 04-13-2017 22:30:17 EDT by Fuentes Calix
--- NOTE | 2017-04-14 07:41 | IPN ---
DATE: 04/13/2017 Mrs. Gray spent the whole weekend in PCU. Even though her QT interval remains prolonged there have been no arrhythmias. She feels well and has no complaints today. Blood pressure 101/65, heart rate is mostly in 50s, occasionally 60s. She is afebrile. Saturation is 98% on room air. Fluid balance approximately equal. Documented weight 98.9 kg. She is alert and oriented and appropriate. Her JVP is not elevated. Lungs are clear to auscultation. Heart exam reveals regular rhythm without gallop, rub or murmur. Abdomen is soft and nontender. There is no peripheral edema. Neurologically she is intact. Laboratory hunter, a normal CBC and a normal basic metabolic panel. ECG reveals presence of sinus bradycardia with diffuse T-wave inversions and prolonged QT intervals approximately 520 milliseconds. ASSESSMENT/PLAN: Mrs. Gray is a 41-year-old female who presented with suicidal attempt and concomitantly had probably stress induced cardiomyopathy. At this point I believe she can be transferred to the psychiatric ibarra. Even though her QT interval is prolonged it certainly is not worsening, if anything it is slightly better and she has not had any arrhythmias after more than a week of monitoring. I would still advocate that after any new medicine that has a potential to prolong QT interval is administered, that she is carefully monitored with ECG at least twice a week. I will make sure that she has early followup with Dr. Mccartney within 2-3 weeks. If there should not be normalization of her ECG further evaluation may be warranted in the form of a stress test or maybe even coronary angiogram.
== END 2017-04-13 14:20 | DRG 812 ==
LOC: M ICU 12:31 → M PCU 04-07 14:52
PROVIDERS: ADMIT Internal Medicine; ATTEND General Practice
DX: T50.902A Poisoning by unspecified drugs, medicaments and biological substances, intentional self-harm, initial encounter (principal); N39.0 Urinary tract infection, site not specified; I10 Essential (primary) hypertension; M79.7 Fibromyalgia; F32.9 Major depressive disorder, single episode, unspecified; K59.00 Constipation, unspecified; R09.02 Hypoxemia; R94.31 Abnormal electrocardiogram [ECG] [EKG]; I51.81 Takotsubo syndrome; G89.29 Other chronic pain; R33.9 Retention of urine, unspecified; E66.9 Obesity, unspecified; F41.9 Anxiety disorder, unspecified; B95.2 Enterococcus as the cause of diseases classified elsewhere; B95.8 Unspecified staphylococcus as the cause of diseases classified elsewhere; F60.9 Personality disorder, unspecified; E78.5 Hyperlipidemia, unspecified; M51.26 Other intervertebral disc displacement, lumbar region

== ENCOUNTER 2017-04-13 14:30 | Inpatient (IN) | payer OTHER ==
[~2017-04-13] VITALS: Ht 170.2 cm; Wt 100.7 kg
[~2017-04-13 14:30] MED LIST changes: +AMLO10TA2 PO; +ASPI81TAEC PO; +ATOR1TAB19 PO; +CELE-19 PO; -CELE1CAP4 PO; +FLUO10CA9 PO; -FLUO20CA19; -FLUO20CA19 PO; +FLUO20CA9; +FLUO20CA9 PO; +LISI-538 PO; +METH-107 PO; -METH1TAB40 PO; -TRAZ50TA11 PO; +TRAZ50TA4 PO
[2017-04-13 15:00] VITALS: BP 190/110
[2017-04-13] MEDS ORDERED: traZODone 50 MG TAB PO PRN (16:45)
[2017-04-13] MEDS ORDERED: MAALOX 30 ML SUSP *UDC PO PRN (16:45)
[2017-04-13] MEDS ORDERED: LISINOPRIL 20 MG TAB PO ONE (16:45)
[2017-04-13] MEDS: IBUPROFEN 400 MG TAB PO PRN (21:44)
[2017-04-13] MEDS: ATORVASTATIN 10 MG TAB PO SCH (21:44)
[2017-04-14 06:35] VITALS: BP 123/81
[2017-04-14] MEDS: IBUPROFEN 400 MG TAB PO PRN ×2 (09:27→19:23)
[2017-04-14] MEDS: LISINOPRIL 20 MG TAB PO SCH (09:27)
[2017-04-14] MEDS: ASPIRIN 81 MG CHEW TABLET PO SCH (09:27)
[2017-04-14] MEDS: FLUoxetine 10 MG CAP PO SCH (09:28)
[2017-04-14] MEDS: amLODIPine 10 MG TAB PO SCH (09:28)
--- NOTE | 2017-04-14 09:43 | HPEPDOC ---
Medical History and Physical Date of Admission April 13, 2017 at 14:30 History and Physical PCP: [facility] ATTENDING: Dr. Fuentes Gallegos HPI: 41yoF admitted to [facility] for unspecified depressive disorder, being medically examined today. She was admitted to [facility] from 04/03 until 04/13/17. She was felt stable for transfer to [facility] 04/13/17 with clearance from cardiology. She was initially admitted after being found unresponsive and ingesting a handful of unknown substance of pills. EKG was noted to be abnormal with prolonged QT. She was observed on telemetry 04/03/17- with no arrhythmia noted. Currently denies any fevers, chills, weakness, fatigue, EUCEDA, CP, SOB, cough, palpitations, abdominal pain, N/V/D or changes in bowel or bladder habits. PMHx: HTN H/O Herniated lumbar disc after fall on ice 2012 chronic pain Fibromyalgia Depression H/O SI Chronic constipation H/O urinary retention, relieved with back surgery. H/O Bradycardia seen by Cardiology in the past. Stress Study unremarkable. H/O Hypothyroidism PSHX: Uterine ablation Hysterectomy Lower back surgery Cystoscopy SOCHX: Resides in: [facility] Marital Status: single Kids: 3 kids Employment: Works at [employer] Tobacco use: Denies ETOH: Denies Illicit Drugs: Denies IV Drug Use: Denies Tattoos done unprofessionally: Denies FAMHX: Mother: Alive, Dementia, DM, HTN Father: Alive, Dementia, HTN Siblings: 1 sister Alive, well Children: Alive, well Unexpected deaths due to medical reasons: None. ROS: As noted in HPI, otherwise 11pt ROS of systems reviewed and unremarkable. Hysterectomy 2 years ago. PE: GEN: 39yoF, appears stated age. Well-nourished, well developed. No acute distress. Alert and oriented x 3. Agitated during exam. HEENT: Normocephalic, atraumatic. Pupils are equal, round, and reactive to light. Extraocular movements are intact. No nystagmus appreciated. Sclera are nonicteric. Conjunctiva without injection. Nose midline. No facial asymmetry. Moist mucous membranes. Dentition fair. Pharynx pink and moist, no cobblestoning. Neck supple, trachea midline. No lymphadenopathy or thyromegaly appreciated. CHEST: Regular rate and rhythm, +S1, +S2 LUNGS: Clear to auscultation bilaterally. No wheezes, rales, or rhonchi. Breathing appears symmetric and easy. Patient is speaking in full sentences. No accessory muscle use. ABD: Round, soft, non-tender, non-distended. +Bowel sounds throughout. No rebound or guarding. No costovertebral angle tenderness. EXT: Pulses 2+ bilaterally dorsalis pedis and radial. No lower extremity edema appreciated. SKIN: [place], dry, warm. Capillary refill <2sec. No rashes. NEURO: Alert and oriented x 3. Cranial nerves III-XII are intact. No focal deficits appreciated. EK04/13/17 SINUS BRADYCARDIA MODERATE T-WAVE ABNORMALITY, CONSIDER ANTEROLATERAL ISCHEMIA QTC 495. TTE 04/03/17 Echocardiographic findings in keeping with stress induced cardiomyopathy. Normal left ventricular size and wall thickness with apical LV ballooning and hyperkinetic proximal portions of the left ventricle with preserved global resting systolic function. Mildly dilated left atrium with Doppler evidence of a degree of impaired LV diastolic function but currently normal estimated mean left atrial pressure. Normal right heart chamber sizes and contraction with pulmonary arterial pressure upper limits of normal to borderline increased. Normal-appearing mitral valvular apparatus with very mild insufficiency. CTA 04/03/17 No evidence for pulmonary embolus. The heart appears to be upper limits of normal and mild pulmonary vascular congestion cannot be excluded. No acute pleuroparenchymal or mediastinal process. A&P: 41yoF admitted to [facility] for depressive disorder 1. Psych. Plan per Psychiatry. EKG 04/13/17. 2. Chronic constipation. Bowel care as needed. 3. Chronic back pain. Patient follows as outpatient with pain management, Dr Cyr. 4. Follow up with PCP. 5. Hypertension. Continue lisinopril 20 mg daily, Norvasc 10 mg daily. BP controlled, 123/81. 6. Chronic pain. Consider pain management if needed. Continue ibuprofen 400 mg every 6 hours as needed. 7. Stress-induced cardiomyopathy. Cardiology has recommended outpatient follow- up with Dr. Mccartney in 2-3 weeks. Monitor EKG with medication adjustments with caution for QT interval, monitor EKG 2 times per week. Continue aspirin 81 mg daily and Lipitor 10 mg daily. 8. Elevated QT interval. Monitored on telemetry from 04/03/17-04/13/17 with no arrhythmia noted. Outpatient follow-up with cardiology. Monitor EKG with medication adjustments. 9. Recent UTI. Status post Rocephin IV 5 days. 10. Dyslipidemia. Continue Lipitor 10 mg daily. Outpatient follow-up with PCP. 11. Agata KING present throughout exam. Vital Signs Vital Signs Date Time Temp Pulse Resp B/P (MAP) Pulse Ox O2 Delivery O2 Flow Rate FiO2 04/14/17 06:35 96.2 71 16 123/81 (95) 04/13/17 15:00 100 Room Air Laboratory Data Labs 24H Item Value Date Time White Blood Count 7.3 K/mm3 04/13/17 0454 Red Blood Count 3.68 M/mm3 L 04/13/17 0454 Hemoglobin 12.3 g/dl 04/13/17 0454 Hematocrit 34.9 % L 04/13/17 0454 Mean Corpuscular Volume 94.9 fl 04/13/17 0454 Mean Corpuscular Hemoglobin 33.3 pg H 04/13/17 0454 Mean Corpuscular Hemoglobin Concent 35.1 g/dl 04/13/17 0454 Red Cell Distribution Width 13.4 % 04/13/17 0454 Platelet Count 251 k/mm3 04/13/17 0454 Sodium Level 141 MEQ/L 04/13/17 0454 Potassium Level 3.5 MEQ/L 04/13/17 0454 Chloride Level 108 MEQ/L H 04/13/17 0454 Carbon Dioxide Level 26 MEQ/L 04/13/17 0454 Anion Gap 7 MEQ/L L 04/13/17 0454 Blood Urea Nitrogen 11 MG/DL 04/13/17 0454 Creatinine 0.63 MG/DL 04/13/17 0454 Glomerular Filtration Rate > 60.0 04/13/17 0454 Fasting Glucose 88 MG/DL 04/13/17 0454 Calcium Level 8.6 MG/DL 04/13/17 0454 Phosphorus Level 3.2 MG/DL 04/13/17 0454 Magnesium Level 2.1 MG/DL 04/13/17 0454 Home Medications Scheduled Amlodipine Besylate (Amlodipine Besylate) 10 Mg Tab, 10 MG PO DAILY Aspirin (Aspirin EC) 81 Mg Tabec, 81 MG PO DAILY Atorvastatin Calcium (Atorvastatin Calcium) 10 Mg Tab, 10 MG PO QHS Fluoxetine HCl (Fluoxetine HCl) 10 Mg Cap, 10 MG PO DAILY Lisinopril (Lisinopril) 20 Mg Tab, 20 MG PO DAILY Allergies Coded Allergies: No Known Allergies (Unverified , 07/17/15) Dominique Park April 14, 2017 09:43
--- NOTE | 2017-04-14 15:27 | MHHPEPDOC ---
[facility] History & Physical History and Physical DATE OF ADMISSION: April 13, 2017 at 14:30 CHIEF COMPLAINT: "They think I tried to OD but I don't believe I did." HISTORY OF THE PRESENT ILLNESS: Patient is a 41-year-old female who was transferred from telemetry floor. Patient was initially admitted to psychiatric unit, was on unit only temporarily, and was transferred to telemetry due to cardiac instability, has now returned for inpatient psychiatric treatment. Per EMR, patient was discharged from inpatient mental health unit on 04/02/17 and on same day attempted to overdose on "a whole bunch of medications," provided conflicting information regarding medication she had taken, then made statement she had overdosed on her boyfriend's beta clarisse medication. The patient has now been cleared for treatment on psychiatric unit, was restarted on Prozac while on telemetry. Patient informs scenario writer today that she did not attempt to overdose, indicates on day she was discharged from inpatient setting went to lunch with son, attended appointments at [facility], and on her way back to her son's she started to feel "sick and dizzy" so pulled into a gas station. Patient notes she does not remember events which followed until arriving at Hospital, states she was brought in by ambulance. Patient indicates she has been informed by cardiology that she has experienced a heart attack. Patient indicates she is feeling "much better" since receiving treatment on telemetry unit. Patient rates current anxiety level 0/10, depression 0/10, denies suicidal and homicidal ideation, denies auditory and visual hallucinations, denies urge to engage in self-injurious behavior. Patient denies challenges with sleep, indicates energy level and concentration level are within normal limits, indicates appetite is stable. Patient denies history of discomfort in social settings, denies panic, impulsivity, and compulsive behaviors, also denies history of aggression and denies having access to weapons in the home. Patient denies symptoms of reexperiencing, avoidance, and hypervigilance, denies hypomania and braulio. Prior to last hospitalization patient had posted statements involving suicidal ideation on Facebook, had undergone recent breakup with boyfriend, had called her ex- to moss picker her son early from visitation, had been out of work due to increased depression, and was undergoing medication adjustments with outpatient provider. During patient's stay she was irritable, initially refused to take medications, denied ever being suicidal, and made routine demands to be discharged from inpatient treatment. Today patient indicates she is feeling better, denies that events which led to current hospitalization involves suicidal ideation and denies making suicide attempt. At time of last discharge patient was taking Prozac 40 mg po q am Rexulti 0.5 mg po daily, Wellbutrin SR 100 mg po BID PSYCHIATRIC REVIEW OF SYSTEMS: Affective: Euthymic Anxiety: Denies Trauma: Denies history of abuse, trauma, or witnessing domestic violence in the home of growing up Psychosis: Denies Personally: Engageable, minimizes events which led to current hospitalization PAST PSYCHIATRIC HISTORY: Prior Psychiatric Disorder: Patient received inpatient treatment in July 2015 after intentional overdose. Outpatient Treatment: [facility] Suicidal/Self injurious: History of suicide attempt 2014, history of suicidal ideation in March 2017, was discharged day of recent suicide attempt Psychotropic Medication History: Multiple, most recent Wellbutrin, Prozac, Rexulti ALLERGIES: Please see below. FAMILY PSYCHIATRIC HISTORY: Brother committed suicide by gunshot Patient denies family history of bipolar disorder SOCIAL HISTORY: Early Relations/development: Parents when she was age 1, was raised by father who remarried, indicates positive relationship with stepmother. Currently resides in [facility] Sibling order: Has brother who committed suicide by gunshot Paternal relationships: Indicates relationships were strong, positive and supportive Education: Indicates she struggled with school, dropped out of the 10th grade but went back and obtain GED Occupational: Works full-time at [employer]. Legal: Denies Martial: Patient is single, mother of 3 children, boyfriend recently terminated relationship with her. from in 2012 Economic: Works at [employer] Supports: Indicates she has limited support system, however, notes children reside in the area and are somewhat supportive Abuse/trauma: Denies history of abuse, trauma, or witnessing domestic violence in the home while growing up SUBSTANCE ABUSE HISTORY: Patient denies history of substance abuse, states she consumes "a few drinks a couple times a year" on special occasions PAST MEDICAL/SURGICAL HISTORY: Hypertension, history of herniated lumbar disc after fall 2012, chronic pain, fibromyalgia, constipation, history of urinary retention, relieved with back surgery, history of bradycardia seen by cardiology in the past, stress to be unremarkable, history of hypothyroidism. , uterine ablation, hysterectomy, lower back surgery, cystoscopy Labs on admission indicate elevated MCH and chloride, low RBC, HCT, and anion gap. 04/02/17 UDS negative 04/13/17 EKG sinus bradycardia moderate T-wave abnormality, consider anterolateral ischemia. Physician note dated 04/13/17 explains EKG reveals presence of sinus bradycardia with diffuse T-wave inversions in prolonged QT intervals approximately 520 ms, adds though QT interval is prolonged it is not worsening, recommendation made for careful monitoring with ECG at least twice a week and follow-up with cardiology, PA is aware and has ordered follow-up EKGs. Patient indicates she is asymptomatic, denies symptoms of chest pain, dizziness , palpitations, shortness of breath, and headache EKG pending VITAL SIGNS: B/P 143/86, P 67, R 16, T 96.2. MENTAL STATUS EXAMINATION: General appearance: Patient is a -year old female, who is . Speech: Of normal rate, rhythm, volume, spontaneous, coherent Thought processes: Linear, logical, goal-directed Thought content: Rational, logical, no tangentiality or paranoia noted, perseverative to discharge Abstract reasoning and computation: Appears within normal limits Description of associations: Intact Description of abnormal or psychotic thoughts: Denies suicidal or homicidal ideation, denies auditory or visual hallucinations, does not appear to be responding to internal stimuli, does not endorse bizarre paranoid ideation, denies preoccupation with violence or obsessions Judgment: Poor Insight: Poor Orientation: A and O 3 Recent and remote memory: Appear intact Attention span and concentration: Within normal limits Fund of knowledge: Adequate Mood: "Fine, I feel fine, I feel ready for discharge." Affect: Constricted, brightens at times, congruent mood DIAGNOSES: Major depressive disorder, recurrent, severe, rule out personality disorder ASSESSMENT: Patient appears to be adjusting to unit, has been visible, pleasant and cooperative, socializing selectively with peers and staff, is attending groups, and has presented with no behavior management challenges. Patient vehemently denies that she recently attempted overdose, states she pulled into a gas station after not feeling well and someone called an ambulance , and she has "no idea" regarding empty medication bottles and car. Patient expresses concerns regarding being out of work for prolonged period of time due to worsening symptoms of depression and psychiatric hospitalizations, indicates today she does not need to be in the hospital and makes request for discharge. Patient is superficially compliant, minimizes symptoms and events with current hospitalization. Patient was recently restarted on Prozac, indicates medication is helpful and denies medication side effects. Will monitor patient's response to medication and will monitor for side effects, will evaluate patient safety, resolution of suicidal ideation, and discharge readiness. Patient indicates when prepared for discharge she will stay with children for awhile before returning to her home, adds she intends to follow-up for outpatient psychotherapy and medication management at [facility]. At time of previous psychiatric discharge, patient declined case management services. PROBLEM LIST: Suicide attempt Depression Anxiety Cardiac condition/abnormal EKGs and troponins Poor impulse control Ineffective coping Limited support INITIAL TREATMENT PLAN: 1. Patient was admitted on a 9. 2. Complete history was obtained. 3. With patients permission, family will be contacted and database will be expanded. 4. Patients medication regimen will be reviewed and changed accordingly. 5. Patient will be provided with protected environment. 6. Patient will be treated with individual, group, and milieu therapies. 7. Patient will receive supportive psych-education. 8. Discharge planning will commence immediately. 9. Outpatient follow-up treatment will be strongly recommended. 10. The initial treatment plan will focus initially on: * Depression. * Risk for suicide. * Substance abuse. ESTIMATED LENGTH OF STAY:5-7 DAYS. TIME SPENT COUNSELING AND COORDINATING INITIAL CARE: 50 minutes. Medications Scheduled Amlodipine Besylate (Amlodipine Besylate) 10 Mg Tab, 10 MG PO DAILY Amlodipine Besylate (Amlodipine Besylate) 10 Mg Tab, 10 MG PO DAILY for HYPERTENSION Aspirin (Aspirin EC) 81 Mg Tabec, 81 MG PO DAILY Aspirin (Aspirin Low Strength) 81 Mg Chw, 81 MG PO DAILY for CORONARY ARTERY DISEASE Atorvastatin Calcium (Atorvastatin Calcium) 10 Mg Tab, 10 MG PO QHS Atorvastatin Calcium (Atorvastatin Calcium) 10 Mg Tab, 10 MG PO QHS for HYPERCHOLESTEROLEMIA Fluoxetine HCl (Fluoxetine HCl) 10 Mg Cap, 10 MG PO DAILY Fluoxetine HCl (Fluoxetine HCl) 10 Mg Cap, 10 MG PO DAILY for DEPRESSION Lisinopril (Lisinopril) 20 Mg Tab, 20 MG PO DAILY Lisinopril (Lisinopril) 20 Mg Tab, 20 MG PO DAILY for HYPERTENSION Allergies Coded Allergies: No Known Allergies (Unverified , 07/17/15) Provider Note ADDENDUM TO THIS NOTE: This patient's medical need for admission to the hospital is approved by Dr Dang, who is not assuming care of the patient during the hospital stay. The patient's initial evaluation, including the treatment plan and the patient's care in the hospital is assumed by Cammie Aragon NP. Cammie Aragon April 14, 2017 15:27 Mayuri Haskins Apr 20, 2017 16:06
[2017-04-14 18:55] VITALS: BP 125/74
[2017-04-14] MEDS: ATORVASTATIN 10 MG TAB PO SCH (21:34)
[2017-04-15] MEDS: IBUPROFEN 400 MG TAB PO PRN ×3 (02:11→17:10)
[2017-04-15 06:18] VITALS: BP 117/65
[2017-04-15] MEDS: ASPIRIN 81 MG CHEW TABLET PO SCH (08:05)
[2017-04-15] MEDS: amLODIPine 10 MG TAB PO SCH (08:06)
[2017-04-15] MEDS: LISINOPRIL 20 MG TAB PO SCH (08:06)
[2017-04-15] MEDS: FLUoxetine 10 MG CAP PO SCH (08:06)
--- NOTE | 2017-04-15 13:52 | MHIPNPDOC ---
[facility] Progress Note Progress Note DATE OF SERVICE: 04/15/17 HISTORY: Patient is a 41-year-old female who was transferred from telemetry floor. Patient was initially admitted to psychiatric unit, was on unit only temporarily, and was transferred to telemetry due to cardiac instability, has now returned for inpatient psychiatric treatment. Per EMR, patient was discharged from inpatient mental health unit on 04/02/17 and on same day attempted to overdose on beta blockers, provided conflicting information in ER. Patient was restarted on low-dose Prozac while on telemetry unit. Biology Professor met with patient today to assess treatment progress on inpatient unit. Patient initiates conversation by asking when she will be discharged, denies suicidal and homicidal ideation, denies anxiety and depression, denies auditory visual hallucinations, denies urge to engage in self-injurious behavior. Patient further denies symptoms of irritability, agitation, impulsivity, and mood lability. Patient indicates Prozac is effective at current dose and states "I'm feeling a lot better than I did last time I was here after being on the other unit," denies need for Prozac dosing adjustment. Patient denies challenges with concentration and focus, reports improvement in energy level, and describes appetite is stable. Patient denies challenges with sleep and denies nightmares symptoms, however, EMR indicates she slept 3.5 hours last night, patient indicates EMR is not correct. Patient denies symptoms of physical pain and presents with no signs of acute distress at time of interaction. Biology Professor attempted to speak with patient regarding statement made to other provider regarding overdosing on ex-boyfriend's beta clarisse medication, patient informs continuity writer she never made such statements and asked to speak with unit attending physician. Patient was instructed on procedure for requesting to speak with attending/changing providers. At time of last discharge patient was taking Prozac 40 mg po q am Rexulti 0.5 mg po daily, Wellbutrin SR 100 mg po BID VITALS: See below NEW TEST RESULTS: No new results PAST MEDICAL/SURGICAL HISTORY: Hypertension, history of herniated lumbar disc after fall 2012, chronic pain, fibromyalgia, constipation, history of urinary retention, relieved with back surgery, history of bradycardia seen by cardiology in the past, stress to be unremarkable, history of hypothyroidism. , uterine ablation, hysterectomy, lower back surgery, cystoscopy Labs on admission indicate elevated MCH and chloride, low RBC, HCT, and anion gap. 04/02/17 UDS negative 04/13/17 EKG sinus bradycardia moderate T-wave abnormality, consider anterolateral ischemia. Physician note dated 04/13/17 explains EKG reveals presence of sinus bradycardia with diffuse T-wave inversions in prolonged QT intervals approximately 520 ms, adds though QT interval is prolonged it is not worsening, recommendation made for careful monitoring with ECG at least twice a week and follow-up with cardiology, PA is aware and has ordered follow-up EKGs. Patient indicates she is asymptomatic, denies symptoms of chest pain, dizziness , palpitations, shortness of breath, and headache Updated EKG pending CURRENT MEDICATIONS: See below MENTAL STATUS EXAMINATION: General appearance: Patient is a 41-year old female, who is generally cooperative, is engageable, makes fair eye contact, appears disheveled, dressed in hospital clothing, ambulance was steady gait, appears stated age. Speech: Of normal rate, rhythm, volume, spontaneous, coherent Thought processes: Linear, logical, goal-directed Thought content: Rational, logical, no tangentiality or paranoia noted, perseverative to discharge Abstract reasoning and computation: Appears within normal limits Description of associations: Intact Description of abnormal or psychotic thoughts: Denies suicidal or homicidal ideation, denies auditory or visual hallucinations, does not appear to be responding to internal stimuli, does not endorse bizarre paranoid ideation, denies preoccupation with violence or obsessions Judgment: Poor Insight: Poor Orientation: A and O 3 Recent and remote memory: Appear intact Attention span and concentration: Within normal limits Fund of knowledge: Adequate Mood: "I'm fine, much better than the last time I was here and I wanted discharge, under lose my apartment and I have bills to pay." Affect: Constricted, brightens at times, congruent mood DIAGNOSES: Major depressive disorder, recurrent, severe, rule out borderline personality disorder ASSESSMENT: Patient appears to be adjusting to unit, has been visible, pleasant and cooperative, socializing selectively with peers and staff, is attending groups, and has presented with no behavior management challenges. Patient continues to vehemently deny that she recently attempted overdose, states she pulled into a gas station after not feeling well and someone called an ambulance, continues to indicate she does not know why empty medication bottles was and car. Patient expresses concerns regarding being out of work for prolonged period of time due to worsening symptoms of depression and psychiatric hospitalizations, indicates today she does not need to be in the hospital and makes request for discharge. Patient remains superficially compliant, minimizes symptoms and events with current hospitalization. Patient was recently restarted on Prozac, indicates medication is helpful and denies medication side effects, denies need for dosing adjustment. Will continue to monitor patient's response to medication, need for dosing change, and will monitor for side effects. Will evaluate patient safety, resolution of suicidal ideation, and discharge readiness. Patient indicates when prepared for discharge she will stay with children for awhile before returning to her home, adds she intends to follow-up for outpatient psychotherapy and medication management at [facility]. At time of previous psychiatric discharge, patient declined case management services. MANAGEMENT PLAN: Continue Prozac 10 mg po q am with plan to titrate if tolerated by patient Maintain safety precautions Patient to attend groups and participate in unit programming to develop coping strategies Engage patient in discharge planning process and arrange meeting with support system to ensure safe discharge planning when appropriate Patient to follow up with Lisa ROBLEDO upon discharge TIME SPENT: 35 minutes Vital Signs Vital Signs Date Time Temp Pulse Resp B/P (MAP) Pulse Ox O2 Delivery O2 Flow Rate FiO2 04/15/17 08:06 117/65 04/15/17 08:06 59 04/15/17 06:18 97.3 16 Room Air 04/13/17 15:00 100 Current Medications Current Medications Al Hydrox/Mg Hydrox/Simethicone (Mylanta) 30 ml Q4HP PRN PO HEARTBURN/ INDIGESTION; Start 04/13/17 at 16:45; Stop 05/13/17 at 16:44 Amlodipine Besylate (Norvasc) 10 mg DAILY PO Last administered on 04/15/17 08: 06; Start 04/14/17 at 09:00; Stop 05/14/17 at 08:59 Aspirin (Aspirin Chewable) 81 mg DAILY PO Last administered on 04/15/17 08:05; Start 04/14/17 at 09:00; Stop 05/14/17 at 08:59 Atorvastatin Calcium (Lipitor) 10 mg QHS PO Last administered on 04/14/17 21: 34; Start 04/13/17 at 21:00; Stop 05/13/17 at 20:59 Fluoxetine HCl (PROzac) 10 mg DAILY PO Last administered on 04/15/17 08:06; Start 04/14/17 at 09:00; Stop 05/14/17 at 08:59 Ibuprofen (Advil) 400 mg Q6HP PRN PO PAIN Last administered on 04/15/17 08:05; Start 04/13/17 at 16:45; Stop 05/13/17 at 16:44 Lisinopril (Prinivil) 20 mg DAILY PO Last administered on 04/15/17 08:06; Start 04/14/17 at 09:00; Stop 05/14/17 at 08:59 Magnesium Hydroxide (Milk Of Magnesia) 30 ml DAILYPRN PRN PO CONSTIPATION; Start 04/13/17 at 16:45; Stop 05/13/17 at 16:44 Trazodone HCl (Desyrel) 50 mg QHSP PRN PO INSOMNIA; Start 04/13/17 at 16:45; Stop 04/14/17 at 15:32; Status DC Allergies Coded Allergies: No Known Allergies (Unverified , 07/17/15) Cammie Aragon Apr 15, 2017 13:52
--- NOTE | 2017-04-15 17:07 | CR ---
DATE OF CONSULTATION: 04/15/2017 CONSULTATION REPORT FOR: JANEY Nance HISTORY OF PRESENT ILLNESS: Luana is a 41-year-old female who was admitted to inpatient mental health unit ([facility]) for unspecified depressive disorder. History of postlaminectomy pain syndrome and following with [facility] in [place]. Pain began after falling on ice while employed at [employer] in [place] four years ago. One year after fall injury, she had lumbar surgery. Surgery helped a little bit for urinary retention symptoms that she was experiencing after her fall injury, but over the years pain has returned to a high level. Has undergone interventional treatment with [facility], last injections were approximately a year ago. States that they were somewhat helpful. States her pain level is a 6/10 visual analog scale (VAS). Pain is located across the lower back with radiation into the left leg. Describes pain as throbbing with shooting pain and numbness down left leg. Pain is aggravated by prolonged sitting or walking. Pain is relieved somewhat with heat and rest. She has tried medications to include opioid pain medications in the past. She is not interested in opioid pain medication due to the fact that it increases her urinary retention and constipation. Was recently on gabapentin 900 three times a day and Robaxin. Denies recent injury. Denies recent fever, illness or sudden weight loss. Denies bowel or bladder incontinence. PAST MEDICAL HISTORY: 1. Hypertension. 2. Herniated disc 2013. 3. Chronic pain. 4. Fibromyalgia. 5. Depression. 6. Chronic constipation. 7. Urinary retention. 8. Hypothyroidism. PAST SURGICAL HISTORY: 1. (C) section. 2. Uterine ablation. 3. Hysterectomy. 4. Low back surgery. 5. Cystoscopy. SOCIAL HISTORY: States she lives with her boyfriend in [place], [place]. She has three boys that resides with their father in [place]. The patient reports a supportive environment at home. She is employed at [employer]. Denies tobacco, alcohol or illicit drug use. FAMILY HISTORY: Mother alive, dementia, diabetes mellitus, hypertension. Father alive, dementia, hypertension. One sister alive and well. Children alive and well. REVIEW OF SYSTEMS: As noted in the history of present illness (HPI). Otherwise, 11-point review of systems reviewed and unremarkable. Does mention episodes of urinary retention that require catheterization. PHYSICAL EXAMINATION: Awake, alert, pleasant. Normal affect. Good eye contact. VITAL SIGNS: Temperature 97.2, heart rate 59, respiratory rate 16, blood pressure 117/65. CARDIOVASCULAR: S1, S2, normal rate and rhythm. RESPIRATORY: Lung sounds clear rest. Respirations nonlabored. NEUROMUSCULAR: Muscle strength and tone of the upper and lower extremities 5/5. INSPECTION OF SPINE: Well-healed surgical scar lumbosacral (LS) axis. Tenderness noted specifically over the left sacroiliac joint (SIJ) region. Range of joint motion of the spine is full with aggravation with both flexion and extension of spine. ASSESSMENT: 1. 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 2. Left sacroiliac joint pain. PLAN: I would recommend three times a day dosing of ibuprofen 600 and Tylenol 500. Recommend use of Sidney-Lara or Lidoderm patch to the lumbar spine. Continue followup with [facility] upon discharge. Thank you for consulting with us. If you have any questions or concerns, please do not hesitate to contact me.
[2017-04-15 18:00] VITALS: BP 133/73
--- NOTE | 2017-04-15 20:42 | ECGEPIP ---
Stationary ECG Study [facility] Test Date: 2017-04-14 Pat Name: JACE SHELTON Department: Room: [place] [address] Gender: F Stereo Plotter Operator: BASILIA : 1975 Requested By: Dominique Park Order Number: [id number] Reading MD: Fuentes Calix Measurements Intervals [place] Rate: 55 P: 56 GA: 144 QRS: 24 QRSD: 92 T: 164 QT: 500 QTc: 482 Interpretive Statements SINUS BRADYCARDIA MARKED T-WAVE ABNORMALITY, CONSIDER ANTEROLATERAL ISCHEMIA Electronically Signed On 04-15-2017 20:42:12 EDT by Fuentes Calix
[2017-04-15] MEDS: ATORVASTATIN 10 MG TAB PO SCH (21:45)
[2017-04-16 06:00] VITALS: BP 124/75
[2017-04-16] MEDS: ANALGESIC BALM CRM 120 GM TOP SCH ×3 (09:00→20:47)
[2017-04-16] MEDS: FLUoxetine 10 MG CAP PO SCH (09:22)
[2017-04-16] MEDS: amLODIPine 10 MG TAB PO SCH (09:22)
[2017-04-16] MEDS: ASPIRIN 81 MG CHEW TABLET PO SCH (09:22)
[2017-04-16] MEDS: LISINOPRIL 20 MG TAB PO SCH (09:23)
[2017-04-16] MEDS ORDERED: LIDOCAINE 5% (LIDODERM) PATCH TD ONE (13:00)
--- NOTE | 2017-04-16 13:50 | REP ---
KUB: Abdominal pain. PRIORS: None. FINDINGS: KUB shows the intestinal gas pattern to be nonspecific. The organ silhouettes insofar as delineated are unremarkable. There is no evidence of free intraperitoneal air. IMPRESSION: Nonspecific. Signed by Aly Hernandez DO 04/16/2017 03:23 P
[2017-04-16] MEDS: IBUPROFEN 400 MG TAB PO PRN ×2 (16:02→22:38)
--- NOTE | 2017-04-16 16:09 | MHIPNPDOC ---
[facility] Progress Note Progress Note DATE OF SERVICE: 04/16/17 HISTORY: Patient is a 41-year-old female who was transferred from telemetry floor. Patient was initially admitted to psychiatric unit, was on unit only temporarily, and was transferred to telemetry due to cardiac instability, has now returned for inpatient psychiatric treatment. Per EMR, patient was discharged from inpatient mental health unit on 04/02/17 and on same day attempted to overdose on beta blockers, provided conflicting information in ER. Patient was restarted on low-dose Prozac while on telemetry unit. Staffing And Scheduling Coordinator met with patient today to assess treatment progress on inpatient unit. Patient initiates conversation by asking when she will be discharged, informs ghost writer "everybody lies about everything around here, they lied to me when I was on the medical floor, they lied to me when they were assessing me and then they never came back to reassess me, they lied to me when they told me I could have a new provider, and you lied to me when you said I could go home on Wednesday." Staffing And Scheduling Coordinator attempted to remind patient that she was never told definitively that she would be discharging on Wednesday, nor has a definitive discharge date been set due to patient recently restarting medication after overdose and treatment on medical floor. Patient then stated she is "very angry and frustrated because I had a pain consult and pain management ordered a Lidoderm patch but now they won't let me have the patch." Staffing And Scheduling Coordinator agreed to pursue with PA/nursing. Patient denied symptoms of anxiety and depression, denied suicidal and homicidal ideation, denied auditory or visual hallucinations, denied urge to engage in self-injurious behavior, further denied impulsivity and mood lability. Patient stated repeatedly during interaction, "I don't need to be here in this hospital , I never tried to kill myself." Patient indicates Prozac at current dose is effective and refused dosing adjustment. Patient describes sleep as "good," however," per EMR she slept 5.5 hours last night. Patient denies challenges with appetite, energy level, or concentration and focus, notes she has been attending groups stating, "not that they're beneficial, I don't need the skills , I don't really need that, I have a job, I have a car, I'm very independent." At time of last discharge patient was taking Prozac 40 mg po q am Rexulti 0.5 mg po daily, Wellbutrin SR 100 mg po BID VITALS: See below NEW TEST RESULTS: Abdominal KUB - nonspecific PAST MEDICAL/SURGICAL HISTORY: Hypertension, history of herniated lumbar disc after fall 2012, chronic pain, fibromyalgia, constipation, history of urinary retention, relieved with back surgery, history of bradycardia seen by cardiology in the past, stress to be unremarkable, history of hypothyroidism. , uterine ablation, hysterectomy, lower back surgery, cystoscopy Labs on admission indicate elevated MCH and chloride, low RBC, HCT, and anion gap. 04/02/17 UDS negative 04/14/17 EKG sinus bradycardia moderate T-wave abnormality, consider anterolateral ischemia. Physician note dated 04/13/17 explains EKG reveals presence of sinus bradycardia with diffuse T-wave inversions in prolonged QT intervals approximately 520 ms, adds though QT interval is prolonged it is not worsening, recommendation made for careful monitoring with ECG at least twice a week and follow-up with cardiology, PA is aware and has ordered follow-up EKGs. Patient indicates she is asymptomatic, denies symptoms of chest pain, dizziness , palpitations, shortness of breath, and headache pain management consult completed, refer to EMR for consult details and recommendations Updated EKG's pending - ordered for 04/16, 04/19 and 04/22/17 CURRENT MEDICATIONS: See below MENTAL STATUS EXAMINATION: General appearance: Patient is a 41-year old female, who is less cooperative today, is engageable but argumentative, makes fair eye contact, appears disheveled, dressed in own clothing, ambulates with steady gait, appears stated age. Speech: Of normal rate, rhythm, volume, spontaneous, coherent Thought processes: Linear, logical, goal-directed Thought content: Rational, logical, no tangentiality or paranoia noted, perseverative to discharge Abstract reasoning and computation: Appears within normal limits Description of associations: Intact Description of abnormal or psychotic thoughts: Denies suicidal or homicidal ideation, denies auditory or visual hallucinations, does not appear to be responding to internal stimuli, does not endorse bizarre paranoid ideation, denies preoccupation with violence or obsessions Judgment: Poor Insight: Poor Orientation: A and O 3 Recent and remote memory: Appear intact Attention span and concentration: Within normal limits Fund of knowledge: Adequate Mood: "I'm fine, I feel better and I don't need to be here." Patient appears depressed, irritable, anxious, some mood lability noted Affect: Blunted, no brightening today DIAGNOSES: Major depressive disorder, recurrent, severe, rule out borderline personality disorder ASSESSMENT: Patient continues to adjust to unit, is socializing selectively with peers, is participating in unit programming, is argumentative, talks over ghost writer during interaction, however, is able to maintain behavioral control and has not presented with behavior management challenges. Patient continues to vehemently deny that she recently attempted overdose, indicates she feels "fine " at current Prozac dose and indicates she does not feel medication needs to be adjusted. Patient denies need for sleep aid. Patient reiterates today concerns related to being on IMHU after treatment on medical floor, missing work, having bills to pay, fears she will lose her apartment. Staffing And Scheduling Coordinator reminded patient that mission coordinator can assist her in communicating with work/housing if needed; patient declined. Patient reiterates she does not need to be in the hospital, remains superficially compliant and continues to minimize symptoms and events which led to current hospitalization. Patient was recently restarted on Prozac, indicates medication remains helpful and denies medication side effects, is refusing dosing adjustment. EKG has been ordered in effort to evaluate QTC in the event patient becomes agreeable to dosing adjustment. In addition, ghost writer spoke with PA who has agreed to order Lidoderm patch to address back pain. Patient has been encouraged to discontinue all medications she is not taking in the hospital and to discard them safely and appropriately after discharge, and to follow-up with outpatient providers before starting any new medications. Will continue to monitor patient's response to medication, need for dosing change, and will monitor for side effects. Will evaluate patient safety, resolution of suicidal ideation, and discharge readiness. Patient indicates when prepared for discharge she plans to stay with children for awhile before returning to her home, adds she intends to follow-up for outpatient psychotherapy and medication management at [facility]. Patient states today she did not decline case management services in the past, she just neglected to follow through with referral, states today she is agreeable to receiving case management services at time of discharge. MANAGEMENT PLAN: Continue Prozac 10 mg po q am with plan to titrate if tolerated by patient and if EKG's into need to indicate QTC downward trend Maintain safety precautions Patient to attend groups and participate in unit programming to develop coping strategies Engage patient in discharge planning process and arrange meeting with support system to ensure safe discharge planning when appropriate Patient to follow up with Lisa ROBLEDO upon discharge TIME SPENT: 35 minutes Vital Signs Vital Signs Date Time Temp Pulse Resp B/P (MAP) Pulse Ox O2 Delivery O2 Flow Rate FiO2 04/16/17 09:23 153/85 04/16/17 09:22 62 04/16/17 06:00 97.4 16 04/15/17 06:18 Room Air 04/13/17 15:00 100 Current Medications Current Medications Acetaminophen (Tylenol Tab) 650 mg Q4HP PRN PO PAIN OR FEVER; Start 04/16/17 at 08:00; Stop 05/16/17 at 07:59 Al Hydrox/Mg Hydrox/Simethicone (Mylanta) 30 ml Q4HP PRN PO HEARTBURN/ INDIGESTION; Start 04/13/17 at 16:45; Stop 05/13/17 at 16:44 Amlodipine Besylate (Norvasc) 10 mg DAILY PO Last administered on 04/16/17 09: 22; Start 04/14/17 at 09:00; Stop 05/14/17 at 08:59 Aspirin (Aspirin Chewable) 81 mg DAILY PO Last administered on 04/16/17 09:22; Start 04/14/17 at 09:00; Stop 05/14/17 at 08:59 Atorvastatin Calcium (Lipitor) 10 mg QHS PO Last administered on 04/15/17 21:45 ; Start 04/13/17 at 21:00; Stop 05/13/17 at 20:59 Fluoxetine HCl (PROzac) 10 mg DAILY PO Last administered on 04/16/17 09:22; Start 04/14/17 at 09:00; Stop 05/14/17 at 08:59 Ibuprofen (Advil) 400 mg Q6HP PRN PO PAIN Last administered on 04/16/17 16:02; Start 04/13/17 at 16:45; Stop 05/13/17 at 16:44 Lidocaine (Lidoderm Patch) 1 patch DAILY TD ; Start 04/17/17 at 09:00; Stop at 08:59 Lisinopril (Prinivil) 20 mg DAILY PO Last administered on 04/16/17t 09:23; Start 04/14/17 at 09:00; Stop 05/14/17 at 08:59 Magnesium Hydroxide (Milk Of Magnesia) 30 ml DAILYPRN PRN PO CONSTIPATION; Start 04/13/17 at 16:45; Stop 05/13/17 at 16:44 Menthol/Methyl Salicylate (Bengay Cream) low back TID TOP ; Start 04/16/17 at 09: 00; Stop 05/16/17 at 08:59 Non-Formulary Medication ( See Comment Field Below ) REMOVE LIDODERM PATCH DAILY@21 XX ; Start 04/16/17 at 21:00; Stop 05/16/17 at 20:59 Non-Formulary Medication ( See Comment Field Below ) REMOVE LIDODERM PATCH DAILY@21 XX ; Start 04/16/17 at 21:00; Stop 05/16/17 at 20:59; Status UNV Trazodone HCl (Desyrel) 50 mg QHSP PRN PO INSOMNIA; Start 04/13/17 at 16:45; Stop 04/14/17 at 15:32; Status DC Allergies Coded Allergies: No Known Allergies (Unverified , 07/17/15) Cammie Aragon Apr 16, 2017 16:08
[2017-04-16 18:00] VITALS: BP 122/61
[2017-04-16] MEDS: **NOTE PATIENT COMMENT** MISC XX SCH (20:47)
[2017-04-16] MEDS: ATORVASTATIN 10 MG TAB PO SCH (20:48)
[2017-04-16] MEDS ORDERED: **NOTE PATIENT COMMENT** MISC XX SCH (21:00)
[2017-04-16] MEDS: MOM 30ML SUSPENSION UDC PO PRN (21:54)
[2017-04-17 06:11] VITALS: BP 130/82
[2017-04-17] MEDS: ANALGESIC BALM CRM 120 GM TOP SCH ×3 (09:00→21:00)
[2017-04-17] MEDS: amLODIPine 10 MG TAB PO SCH (09:41)
[2017-04-17] MEDS: LISINOPRIL 20 MG TAB PO SCH (09:41)
[2017-04-17] MEDS: ASPIRIN 81 MG CHEW TABLET PO SCH (09:42)
[2017-04-17] MEDS: LIDOCAINE 5% (LIDODERM) PATCH TD SCH (09:42)
[2017-04-17] MEDS: FLUoxetine 10 MG CAP PO SCH (09:42)
[2017-04-17] MEDS: IBUPROFEN 400 MG TAB PO PRN ×2 (12:02→18:06)
[2017-04-17 18:18] VITALS: BP 120/73
[2017-04-17] MEDS: **NOTE PATIENT COMMENT** MISC XX SCH (21:13)
[2017-04-17] MEDS: MOM 30ML SUSPENSION UDC PO PRN (21:15)
[2017-04-17] MEDS: ATORVASTATIN 10 MG TAB PO SCH (21:16)
[2017-04-17] MEDS: ACETAMINOPHEN TAB 650MG DOSE (2X325MG) PO PRN (22:32)
[2017-04-18 06:00] VITALS: BP 124/73
[2017-04-18] MEDS: IBUPROFEN 400 MG TAB PO PRN ×3 (07:52→22:14)
[2017-04-18] MEDS: LISINOPRIL 20 MG TAB PO SCH (08:43)
[2017-04-18] MEDS: FLUoxetine 10 MG CAP PO SCH (08:43)
[2017-04-18] MEDS: LIDOCAINE 5% (LIDODERM) PATCH TD SCH (08:43)
[2017-04-18] MEDS: ANALGESIC BALM CRM 120 GM TOP SCH ×3 (08:43→21:00)
[2017-04-18] MEDS: ASPIRIN 81 MG CHEW TABLET PO SCH (08:43)
[2017-04-18] MEDS: amLODIPine 10 MG TAB PO SCH (08:43)
[2017-04-18] MEDS: ACETAMINOPHEN TAB 650MG DOSE (2X325MG) PO PRN ×2 (11:30→20:56)
--- NOTE | 2017-04-18 16:36 | ECGEPIP ---
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
[2017-04-18 18:00] VITALS: BP 134/72
[2017-04-18] MEDS: ATORVASTATIN 10 MG TAB PO SCH (20:55)
[2017-04-18] MEDS: **NOTE PATIENT COMMENT** MISC XX SCH (21:16)
[2017-04-18] MEDS: MOM 30ML SUSPENSION UDC PO PRN (22:13)
[2017-04-19] MEDS: ACETAMINOPHEN TAB 650MG DOSE (2X325MG) PO PRN ×3 (03:16→18:13)
[2017-04-19 06:28] VITALS: BP 108/72
[2017-04-19] MEDS: ASPIRIN 81 MG CHEW TABLET PO SCH (08:43)
[2017-04-19] MEDS: FLUoxetine 10 MG CAP PO SCH (08:44)
[2017-04-19] MEDS: LIDOCAINE 5% (LIDODERM) PATCH TD SCH (08:44)
[2017-04-19] MEDS: LISINOPRIL 20 MG TAB PO SCH (08:44)
[2017-04-19] MEDS: ANALGESIC BALM CRM 120 GM TOP SCH ×3 (08:44→21:00)
[2017-04-19] MEDS: amLODIPine 10 MG TAB PO SCH (08:44)
[2017-04-19] MEDS: IBUPROFEN 400 MG TAB PO PRN ×3 (08:48→22:27)
--- NOTE | 2017-04-19 08:59 | MHIPNPDOC ---
[facility] Progress Note Progress Note DATE OF SERVICE: 04/19/17 HISTORY: Patient is a 41-year-old female who was transferred from telemetry floor. Patient was initially admitted to psychiatric unit, was on unit only temporarily, and was transferred to telemetry due to cardiac instability, has now returned for inpatient psychiatric treatment. Per EMR, patient was discharged from inpatient mental health unit on 04/02/17 and on same day attempted to overdose on beta blockers, provided conflicting information in ER. Patient was restarted on low-dose Prozac while on telemetry unit. Bpm Developer met with patient today to assess treatment progress on inpatient unit. Patient denies symptoms of anxiety and depression, denies suicidal and homicidal ideation, denies auditory or visual hallucinations, denies urge to engage in self-injurious behavior. Patient reiterates today she feels she is prepared for discharge, again states she did not attempt to kill herself prior to hospitalization. Patient indicates Prozac at current doses working well, is aware poem writer is awaiting EKG results, states to poem writer she does not feel she needs dosing adjustment regardless of EKG results. Patient denies all cardiac related symptoms, denies headache, dizziness, shortness of breath, chest pain, and palpitations. Contrary to EMR, patient states "I sleep good when there is no noise on the unit," denies sleep challenges at home, and denies nightmares symptoms. Patient describes appetite as "good," energy level as "good,", denies challenges with concentration and focus. Patient presents with no signs of acute distress at time of interaction. Addendum: After receiving word from PA who indicated patient's QTC is more prolonged, poem writer sought consultation from attending regarding patient's discharge prepared this and continuation of psychotropic medication. Attending called sales project engineer, Dr. Handy. Dr. Handy who informed attending that he approves of continuation of Prozac at 10 mg dose at this time, indicated patient is currently experiencing a cardiac condition which may resolve within a couple of weeks and, when in telemetry, patient did not experience much in the way of arrhythmia. Attending indicated patient may be discharged on Prozac and will need to follow-up with outpatient providers to evaluate patient's need for, and cardiac ability to withstand, additional psychotropic medication. VITALS: See below NEW TEST RESULTS: Abdominal KUB - nonspecific PAST MEDICAL/SURGICAL HISTORY: Hypertension, history of herniated lumbar disc after fall 2013, chronic pain, fibromyalgia, constipation, history of urinary retention, relieved with back surgery, history of bradycardia seen by cardiology in the past, stress to be unremarkable, history of hypothyroidism. , uterine ablation, hysterectomy, lower back surgery, cystoscopy Labs on admission indicate elevated MCH and chloride, low RBC, HCT, and anion gap. 04/02/17 UDS negative 04/14/17 EKG sinus bradycardia moderate T-wave abnormality, consider anterolateral ischemia. Physician note dated 04/13/17 explains EKG reveals presence of sinus bradycardia with diffuse T-wave inversions in prolonged QT intervals approximately 520 ms, adds though QT interval is prolonged it is not worsening, recommendation made for careful monitoring with ECG at least twice a week and follow-up with cardiology, PA is aware and has ordered follow-up EKGs. Patient indicates she is asymptomatic, denies symptoms of chest pain, dizziness , palpitations, shortness of breath, and headache 04/15/17 pain management consult completed, refer to EMR for consult details and recommendations 04/17/17 EKG sinus bradycardia moderate T-wave abnormality, consider anterolateral ischemia moderate T-wave abnormality, consider inferior ischemia prolonged QT interval similar 04/14/17 CURRENT MEDICATIONS: See below MENTAL STATUS EXAMINATION: General appearance: Patient is a 41-year old female, who pleasant and cooperative today, engageable, makes improved eye contact, presents with adequate hygiene, dressed in own clothing, ambulates with steady gait, appears stated age. Speech: Of normal rate, rhythm, volume, spontaneous, coherent Thought processes: Linear, logical, goal-directed Thought content: Rational, logical, no tangentiality or paranoia noted, perseverative to discharge Abstract reasoning and computation: Appears within normal limits Description of associations: Intact Description of abnormal or psychotic thoughts: Denies suicidal or homicidal ideation, denies auditory or visual hallucinations, does not appear to be responding to internal stimuli, does not endorse bizarre paranoid ideation, denies preoccupation with violence or obsessions Judgment: Limited Insight: Limited Orientation: A and O 3 Recent and remote memory: Appear intact Attention span and concentration: Within normal limits Fund of knowledge: Adequate Mood: "I'm fine, I feel ready to be discharged." Patient denies depression and anxiety, no mood lability noted Affect: Constricted, brightens frequently and appropriately, congruent with mood DIAGNOSES: Major depressive disorder, recurrent, severe, rule out borderline personality disorder ASSESSMENT: Patient continues to adjust to unit, is socializing selectively with peers, is participating in unit programming, is pleasant and cooperative today. Patient has been informed of new EKG results, and that recommendation is being made by cardiology that she continue Prozac at 10 mg dose and follow-up outpatient providers for ongoing monitoring and evaluation of psychotropic medication needs. Patient verbalizes understanding and further verbalizes understanding that she should not start medications without consulting with cardiology. Patient denies having leftover medications in the home and has been encouraged to appropriately destroy or turn in any unused medications. Patient continues to vehemently deny that she recently attempted to overdose or attempt to commit suicide, indicates Prozac at current dose is effective and denies medication side effects, has also consistently denied need for sleep aid. Patient is aware that implementation coordinator can help her with letters for landlord and work if needed, informs poem writer today that she may not keep her apartment and may live with children for a while after discharge, adds her mother is also a source of support. Will continue to monitor patient's response to medication and will begin to prepare patient for discharge which is tentatively scheduled for tomorrow. Family meeting has been completed over the phone with patient's son who has indicated patient is prepared for discharge and has denied having concerns pertaining to patient's discharge to his home. Will continue to evaluate patient safety and discharge readiness. Patient reiterates today she plans to discharge to home with children and states she intends to follow-up for outpatient psychotherapy and medication management at [facility]. Patient has indicated that she is receptive to participating in case management services as well. MANAGEMENT PLAN: Continue Prozac 10 mg po q am Maintain safety precautions Patient to attend groups and participate in unit programming to develop coping strategies Engage patient in discharge planning process and arrange meeting with support system to ensure safe discharge planning when appropriate Patient to follow up with cardiology, pain management, and PCM regarding any other health concerns within 5-7 days of discharge TIME SPENT: 35 minutes Vital Signs Vital Signs Date Time Temp Pulse Resp B/P (MAP) Pulse Ox O2 Delivery O2 Flow Rate FiO2 04/19/17 08:44 61 132/77 04/19/17 06:28 97.2 16 04/15/17 06:18 Room Air 04/13/17 15:00 100 Current Medications Current Medications Acetaminophen (Tylenol Tab) 650 mg Q4HP PRN PO PAIN OR FEVER Last administered on 04/19/17 03:16; Start 04/16/17 at 08:00; Stop 05/16/17 at 07:59 Al Hydrox/Mg Hydrox/Simethicone (Mylanta) 30 ml Q4HP PRN PO HEARTBURN/ INDIGESTION; Start 04/13/17 at 16:45; Stop 05/13/17 at 16:44 Amlodipine Besylate (Norvasc) 10 mg DAILY PO Last administered on 04/19/17 08: 44; Start 04/14/17 at 09:00; Stop 05/14/17 at 08:59 Aspirin (Aspirin Chewable) 81 mg DAILY PO Last administered on 04/19/17 08:43; Start 04/14/17 at 09:00; Stop 05/14/17 at 08:59 Atorvastatin Calcium (Lipitor) 10 mg QHS PO Last administered on 04/18/17 20:55 ; Start 04/13/17 at 21:00; Stop 05/13/17 at 20:59 Fluoxetine HCl (PROzac) 10 mg DAILY PO Last administered on 04/19/17 08:44; Start 04/14/17 at 09:00; Stop 05/14/17 at 08:59 Ibuprofen (Advil) 400 mg Q6HP PRN PO PAIN Last administered on 04/19/17 08:48; Start 04/13/17 at 16:45; Stop 05/13/17 at 16:44 Lidocaine (Lidoderm Patch) 1 patch DAILY TD Last administered on 04/19/17 08:44 ; Start 04/17/17 at 09:00; Stop 05/17/17 at 08:59 Lisinopril (Prinivil) 20 mg DAILY PO Last administered on 04/19/17 08:44; Start 04/14/17 at 09:00; Stop 05/14/17 at 08:59 Magnesium Hydroxide (Milk Of Magnesia) 30 ml DAILYPRN PRN PO CONSTIPATION Last administered on 04/18/17 22:13; Start 04/13/17 at 16:45; Stop 05/13/17 at 16:44 Menthol/Methyl Salicylate (Bengay Cream) low back TID TOP ; Start 04/16/17 at 09: 00; Stop 05/16/17 at 08:59 Non-Formulary Medication ( See Comment Field Below ) REMOVE LIDODERM PATCH DAILY@21 XX Last administered on 04/18/17t 21:16; Start 04/16/17 at 21:00; Stop 05/16/17 at 20:59 Non-Formulary Medication ( See Comment Field Below ) REMOVE LIDODERM PATCH DAILY@21 XX ; Start 04/16/17 at 21:00; Stop 05/16/17 at 20:59; Status UNV Trazodone HCl (Desyrel) 50 mg QHSP PRN PO INSOMNIA; Start 04/13/17 at 16:45; Stop 04/14/17 at 15:32; Status DC Allergies Coded Allergies: No Known Allergies (Unverified , 07/17/15) Cammie Aragon Apr 19, 2017 08:58
[2017-04-19 18:00] VITALS: BP 134/86
--- NOTE | 2017-04-19 20:34 | IPN ---
DATE: 04/19/2017 I was called earlier today by the patient's psychiatrist with question of whether her Prozac can be continued. ECG performed yesterday reveals ongoing QT segment prolongation and precordial T-wave inversions. I did not see the patient personally but I was told that she remains asymptomatic from cardiac perspective. Because of her underlying personality disorder it is felt that she needs to be on some medications otherwise there would be high risk of relapse of her suicidal ideation. From my perspective I raised no objections. There is no appreciable change on her QT interval by ECGs and she has been arrhythmia free in spite of prolonged QT interval for over 2 weeks. Our plan is to bring the patient for evaluation in the office early next week. She most likely will need pharmacologic stress test to evaluate her abnormalities on EKG. VIRGILIO
[2017-04-19] MEDS: ATORVASTATIN 10 MG TAB PO SCH (21:00)
[2017-04-19] MEDS: **NOTE PATIENT COMMENT** MISC XX SCH (21:01)
--- NOTE | 2017-04-19 21:34 | IPN ---
DATE OF SERVICE: 04/18/2017 The patient today states "I'm doing really good." She says she did not sleep good but she felt it was because it was very noisy outside of the room. She denies suicidal ideation. She has no complaints. MENTAL STATUS EXAM: The patient is alert and oriented times three. Eye contact is good. Verbally spontaneous. There is no formal thought disorder noted. She says her mood is good. Affect full range and appropriate. She is not psychotic. She denies suicidal or homicidal ideation. Concentration is fair. Memory is intact. Insight and judgment is fair. DIAGNOSES: Major depressive disorder, recurrent, severe. TREATMENT PLAN: At this point we will further observe and evaluate this patient for continued elevation of her mood and continue resolution of suicidal ideation. VIRGILIO
--- NOTE | 2017-04-19 21:58 | ECGEPIP ---
Stationary ECG Study [facility] Test Date: 2017-04-19 Pat Name: JACE SHELTON Department: Room: [place] [address] Gender: F Customs Compliance Analyst: KIYA : 1975 Requested By: Dominique Park Order Number: [id number] Reading MD: Fuentes Gallegos Measurements Intervals [place] Rate: 54 P: 54 WI: 150 QRS: 12 QRSD: 91 T: 173 QT: 539 QTc: 515 Interpretive Statements SINUS BRADYCARDIA ST DEVIATION AND MARKED T-WAVE ABNORMALITY, CONSIDER ANTEROLATERAL ISCHEMIA Prolonged QTc Similar to tracing from 04-17-17 Electronically Signed On 04-19-2017 21:58:15 EDT by Fuentes Gallegos
[2017-04-20 06:25] VITALS: BP 126/74
[2017-04-20] MEDS: IBUPROFEN 400 MG TAB PO PRN (06:46)
[2017-04-20] MEDS: LIDOCAINE 5% (LIDODERM) PATCH TD SCH (08:42)
[2017-04-20] MEDS: ASPIRIN 81 MG CHEW TABLET PO SCH (08:42)
[2017-04-20 08:43] VITALS: BP 138/68
[2017-04-20] MEDS: LISINOPRIL 20 MG TAB PO SCH (08:43)
[2017-04-20] MEDS: amLODIPine 10 MG TAB PO SCH (08:43)
[2017-04-20] MEDS: ANALGESIC BALM CRM 120 GM TOP SCH (09:00)
[2017-04-20] MEDS ORDERED: FLUoxetine 10 MG CAP PO SCH (09:00)
--- NOTE | 2017-04-20 09:26 | MHDSPDOC ---
[facility] Discharge Summary Discharge Summary DATE OF ADMISSION: April 13, 2017 at 14:30 DATE OF DISCHARGE: Apr 20, 2017 HISTORY: Patient is a 41-year-old female who was transferred from telemetry floor. Patient was initially admitted to psychiatric unit, was on unit only temporarily, and was transferred to telemetry due to cardiac instability, has now returned for inpatient psychiatric treatment. Per EMR, patient was discharged from inpatient mental health unit on 04/02/17 and on same day attempted to overdose on "a whole bunch of medications," provided conflicting information regarding medication she had taken, then made statement she had overdosed on her boyfriend's beta clarisse medication. The patient has now been cleared for treatment on psychiatric unit, was restarted on Prozac while on telemetry. Patient informs junior underwriter today that she did not attempt to overdose, indicates on day she was discharged from inpatient setting went to lunch with son, attended appointments at [facility], and on her way back to her son's she started to feel "sick and dizzy" so pulled into a gas station. Patient notes she does not remember events which followed until arriving at Hospital, states she was brought in by ambulance. Patient indicates she has been informed by cardiology that she has experienced a heart attack. Patient indicates she is feeling "much better" since receiving treatment on telemetry unit. Patient rates current anxiety level 0/10, depression 0/10, denies suicidal and homicidal ideation, denies auditory and visual hallucinations, denies urge to engage in self-injurious behavior. Patient denies challenges with sleep, indicates energy level and concentration level are within normal limits, indicates appetite is stable. Patient denies history of discomfort in social settings, denies panic, impulsivity, and compulsive behaviors, also denies history of aggression and denies having access to weapons in the home. Patient denies symptoms of reexperiencing, avoidance, and hypervigilance, denies hypomania and braulio. 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 During patient's stay she was irritable, initially refused to take medications, denied ever being suicidal, and made routine demands to be discharged from inpatient treatment. Today patient indicates she is feeling better, denies that events which led to current hospitalization involves suicidal ideation and denies making suicide attempt. At time of last discharge patient was taking Prozac 40 mg po q am Rexulti 0.5 mg po daily, Wellbutrin SR 100 mg po BID PSYCHIATRIC REVIEW OF SYSTEMS AT TIME OF ADMISSION: Affective: Euthymic Anxiety: Denies Trauma: Denies history of abuse, trauma, or witnessing domestic violence in the home of growing up Psychosis: Denies Personally: Engageable, minimizes events which led to current hospitalization PAST PSYCHIATRIC HISTORY: Prior Psychiatric Disorder: Patient received inpatient treatment in July 2015 after intentional overdose. Outpatient Treatment: [facility] Suicidal/Self injurious: History of suicide attempt 2014, history of suicidal ideation in March 2017, was discharged day of recent suicide attempt Psychotropic Medication History: Multiple, most recent Wellbutrin, Prozac, Rexulti MEDICAL/SURGICAL HISTORY: Hypertension, history of herniated lumbar disc after fall 2012, chronic pain, fibromyalgia, constipation, history of urinary retention, relieved with back surgery, history of bradycardia seen by cardiology in the past, stress to be unremarkable, history of hypothyroidism. , uterine ablation, hysterectomy, lower back surgery, cystoscopy Labs on admission indicate elevated MCH and chloride, low RBC, HCT, and anion gap. Abnormal KUB - nonspecific 04/02/17 UDS negative 04/14/17 EKG sinus bradycardia moderate T-wave abnormality, consider anterolateral ischemia. Physician note dated 04/13/17 explains EKG reveals presence of sinus bradycardia with diffuse T-wave inversions in prolonged QT intervals approximately 520 ms, adds though QT interval is prolonged it is not worsening, recommendation made for careful monitoring with ECG at least twice a week and follow-up with cardiology, PA is aware and has ordered follow-up EKGs. Patient indicates she is asymptomatic, denies symptoms of chest pain, dizziness , palpitations, shortness of breath, and headache 04/15/17 pain management consult completed, refer to EMR for consult details and recommendations 04/17/17 EKG sinus bradycardia moderate T-wave abnormality, consider anterolateral ischemia moderate T-wave abnormality, consider inferior ischemia prolonged QT interval similar 04/14/17. Clinical consultation sought in preparation for patient discharge and for medication prescribing purposes. FAMILY PSYCHIATRIC HISTORY: Brother committed suicide by gunshot Patient denies family history of bipolar disorder SOCIAL HISTORY: Early Relations/development: Parents when she was age 1, was raised by father who remarried, indicates positive relationship with stepmother. Currently resides in [facility] Sibling order: Has brother who committed suicide by gunshot Paternal relationships: Indicates relationships were strong, positive and supportive Education: Indicates she struggled with school, dropped out of the 10th grade but went back and obtain GED Occupational: Works full-time at [employer]. Legal: Denies Martial: Patient is single, mother of 3 children, boyfriend recently terminated relationship with her. from in 2012 Economic: Works at [employer] Supports: Indicates she has limited support system, however, notes children reside in the area and are somewhat supportive Abuse/trauma: Denies history of abuse, trauma, or witnessing domestic violence in the home while growing up SUBSTANCE ABUSE HISTORY: Patient denies history of substance abuse, states she consumes "a few drinks a couple times a year" on special occasions TREATMENT PROGRESS ON UNIT: Patient has adjusted to unit, has engage selectively with staff and peers, has been participating in unit programming. Patient has been informed of recent EKG results, and that recommendation was being made by cardiology that she continue Prozac at 10 mg dose and follow-up outpatient providers for ongoing monitoring and evaluation of psychotropic medication needs. Patient verbalizes understanding and further verbalizes understanding that she should not start medications without consulting with cardiology, is aware nursing has been asked to arrange follow-up cardiology appointment for her after discharge. Patient denies experiencing symptoms of headache, dizziness, shortness of breath, palpitations or headache. Patient denies having leftover medications in the home and has been encouraged to appropriately destroy or turn in any unused medications. Patient continues to vehemently deny that she recently attempted to overdose or attempt to commit suicide, indicates Prozac at current dose is effective and denies medication side effects, has also consistently denied need for sleep aid. Patient denies symptoms of depression and anxiety, denies suicidal and homicidal ideation, denies auditory or visual hallucinations, denies urge to engage in self- injurious behavior. Patient further denies symptoms of irritability, agitation, impulsivity, and mood lability. Patient has struggled with sleep on the unit, notes has been related to noise on unit, indicates she sleeps well at home without sleep aid. Patient indicates appetite and energy levels are stable, denies challenges with concentration and focus. Patient is future oriented and goal-directed and is able to effectively engage in the safety planning process, verbalizes concrete strategies for mitigating symptoms of anxiety, depression, or suicidal thinking should they reemerge. Family meeting has been completed over the phone with patient's son who has indicated patient is prepared for discharge and denies having concerns pertaining to patient's discharge to his home. Patient adds her mother also remains a strong source of support as well. Patient is requesting discharge today, indicates she will be discharging to home of son where she will stay until she determines if she wants to relinquish her apartment and move back home with her mother, or return to her apartment. Patient reiterates she plans to follow-up for outpatient psychotherapy and medication management at [facility]. Patient verbalizes understanding of and agreement with discharge plan. Addendum: After receiving word from PA who indicated patient's QTC is more prolonged, junior underwriter sought consultation from attending regarding patient's discharge prepared this and continuation of psychotropic medication. Attending called regulatory compliance coordinator, Dr. Handy. Dr. Handy who informed attending that he approves of continuation of Prozac at 10 mg dose at this time, indicated patient is currently experiencing a cardiac condition which may resolve within a couple of weeks and, when in telemetry, patient did not experience much in the way of arrhythmia. Attending indicated patient may be discharged on Prozac and will need to follow-up with outpatient providers to evaluate patient's need for, and cardiac ability to withstand, additional psychotropic medication. MENTAL STATUS EXAMINATION ON DISCHARGE: General appearance: Patient is a 41-year old female, who pleasant and cooperative today, engageable, makes adequate eye contact, presents with adequate hygiene, dressed in own clothing, ambulates with steady gait, appears stated age. Speech: Of normal rate, rhythm, volume, spontaneous, coherent Thought processes: Linear, logical, goal-directed Thought content: Rational, logical, no tangentiality or paranoia noted, no perseveration Abstract reasoning and computation: Appears within normal limits Description of associations: Intact Description of abnormal or psychotic thoughts: Denies suicidal or homicidal ideation, denies auditory or visual hallucinations, does not appear to be responding to internal stimuli, does not endorse bizarre paranoid ideation, denies preoccupation with violence or obsessions Judgment: Fair, some improvement during stay Insight: Limited, some improvement during stay Orientation: A and O 3 Recent and remote memory: Appear intact Attention span and concentration: Within normal limits Fund of knowledge: Adequate Mood: "I'm fine, I feel ready to be discharged." Patient denies depression and anxiety, no mood lability noted Affect: Mild constriction, brightens frequently and appropriately, congruent with mood CONDITION ON DISCHARGE: Stable, no suicidal or homicidal ideation DIAGNOSES ON DISCHARGE: Major depressive disorder, recurrent, severe, rule out borderline personality disorder MEDICATIONS ON DISCHARGE: See below FOLLOW UP PLAN: Continue Prozac 10 mg po q am Patient to discharge to home with her children today, will follow up with [facility] for outpatient psychotherapy and medication management services Patient to follow up with cardiology, pain management, and PCM regarding any other health concerns within 5-7 days of discharge TIME SPENT COORDINATING CARE 40 minutes Vital Signs/I&Os Vital Signs Date Time Temp Pulse Resp B/P (MAP) Pulse Ox O2 Delivery O2 Flow Rate FiO2 04/20/17 08:43 138/68 04/20/17 08:43 61 04/20/17 06:25 98.5 20 04/15/17 06:18 Room Air Medications Scheduled Amlodipine Besylate (Amlodipine Besylate) 10 Mg Tab, 10 MG PO DAILY, #30 Amlodipine Besylate (Amlodipine Besylate) 10 Mg Tab, 10 MG PO DAILY for HYPERTENSION, #7 Aspirin (Aspirin EC) 81 Mg Tabec, 81 MG PO DAILY for 30 Days, #30 Aspirin (Aspirin Low Strength) 81 Mg Chw, 81 MG PO DAILY for CORONARY ARTERY DISEASE, #7 Atorvastatin Calcium (Atorvastatin Calcium) 10 Mg Tab, 10 MG PO QHS, #30 Atorvastatin Calcium (Atorvastatin Calcium) 10 Mg Tab, 10 MG PO QHS for HYPERCHOLESTEROLEMIA, #7 Fluoxetine HCl (Fluoxetine HCl) 10 Mg Cap, 10 MG PO DAILY, #30 Fluoxetine HCl (Fluoxetine HCl) 10 Mg Cap, 10 MG PO DAILY for DEPRESSION, #7 Lisinopril (Lisinopril) 20 Mg Tab, 20 MG PO DAILY, #30 Lisinopril (Lisinopril) 20 Mg Tab, 20 MG PO DAILY for HYPERTENSION, #7 Allergies Coded Allergies: No Known Allergies (Unverified , 07/17/15) Cammie Aragon Apr 20, 2017 09:26
[2017-04-20] MEDS ORDERED: FLUO10CA9 PO (11:27)
[2017-04-20] MEDS ORDERED: AMLO10TA2 PO (11:43)
[2017-04-20] MEDS ORDERED: ATOR1TAB19 PO (11:43)
[2017-04-20] MEDS ORDERED: ASPI81TA PO (11:43)
[2017-04-20] MEDS ORDERED: LISI-538 PO (11:43)
== END 2017-04-20 12:05 | disposition home or self-care (01) | DRG 751 ==
LOC: M PSY 14:30
PROVIDERS: ADMIT Psychiatry & Neurology Psychiatry; ATTEND Psychiatry & Neurology Psychiatry
DX: F33.2 Major depressive disorder, recurrent severe without psychotic features (principal); I11.0 Hypertensive heart disease with heart failure; F60.3 Borderline personality disorder; K59.09 Other constipation; M54.9 Dorsalgia, unspecified; E78.5 Hyperlipidemia, unspecified; I51.81 Takotsubo syndrome; M96.1 Postlaminectomy syndrome, not elsewhere classified; R94.31 Abnormal electrocardiogram [ECG] [EKG]; M53.3 Sacrococcygeal disorders, not elsewhere classified; Z79.899 Other long term (current) drug therapy; Z91.5 Personal history of self-harm; Z81.8 Family history of other mental and behavioral disorders; Z79.82 Long term (current) use of aspirin; Z90.710 Acquired absence of both cervix and uterus; Z83.3 Family history of diabetes mellitus; Z82.49 Family history of ischemic heart disease and other diseases of the circulatory system; Z82.8 Family history of other disabilities and chronic diseases leading to disablement, not elsewhere classified

== ENCOUNTER 2017-07-07 14:12 | Emergency (ER) | payer OTHER ==
[~2017-07-07] VITALS: Ht 170.2 cm; Wt 95.5 kg
[~2017-07-07 14:12] MED LIST changes: +ASPI81TA PO; -CELE-19 PO; +CELE1CAP4 PO; +FLUO20CA19; +FLUO20CA19 PO; -FLUO20CA9; -FLUO20CA9 PO; -METH-107 PO; +METH1TAB40 PO; +TRAZ50TA11 PO; -TRAZ50TA4 PO
[2017-07-07] MEDS ORDERED: ASPIRIN 81 MG CHEW TABLET PO ONE (15:00)
[2017-07-07 15:12] LABS: BASO % 0.2 % (0.0-1.0); EOS # 0.1 K/mm3 (0.0-0.50); EOS % 1.2 % (0.0-3.0); LARGE UNSTAINED CELL # 0.1 K/mm3 (0.0-0.4); LARGE UNSTAINED CELL % 1.3 % (0.0-4.0); LYMPH # 1.6 K/mm3 (1.5-4.5); LYMPH % 23.9 % (24.0-44.0); MEAN CORPUSCULAR HEMOGLOBIN 31.3 pg (27.0-33.0); MEAN CORPUSCULAR HGB CONC 34.4 g/dl (32.0-36.5); MEAN CORPUSCULAR VOLUME 91.1 fl (80.0-96.0); MONO # 0.3 K/mm3 (0.0-0.8); MONO % 4.9 % (0.0-5.0); NEUTROPHILS # 4.6 K/mm3 (1.8-7.7); NEUTROPHILS % 68.4 % (36.0-66.0); PLATELET COUNT, AUTOMATED 247 k/mm3 (150-450); RED CELL DISTRIBUTION WIDTH 13.1 % (11.5-14.5); WHITE BLOOD COUNT 6.7 K/mm3 (4.0-10.0)
[2017-07-07 15:20] LABS: ANION GAP 9 MEQ/L (8-16); BLOOD UREA NITROGEN 11 MG/DL (7-18); CALCIUM LEVEL 8.9 MG/DL (8.5-10.1); CARBON DIOXIDE LEVEL 26 MEQ/L (21-32); CHLORIDE LEVEL 108 MEQ/L (98-107); CREATININE FOR GFR 0.91 MG/DL (0.55-1.02); GLOMERULAR FILTRATION RATE > 60.0 (>58); GLUCOSE, FASTING 112 MG/DL (70-105); POTASSIUM SERUM 3.2 MEQ/L (3.5-5.1); SODIUM LEVEL 143 MEQ/L (136-145)
[2017-07-07] MEDS ORDERED: hydrALAZINE INJ 20 MG/ML VIAL IV STA (16:16)
--- NOTE | 2017-07-07 16:57 | REP ---
Portable chest x-ray: Single view: History: Chest pain. Findings: EKG electrodes are seen. The lungs are symmetrically aerated and clear. Heart size is borderline. Pulmonary vasculature is not increased. Pleural angles are sharp. No infiltrate is seen. Impression: Borderline heart size otherwise no acute disease. Signed by Brigido Gibson MD 07/07/2017 05:08 P
[2017-07-07] MEDS ORDERED: hydrALAZINE INJ 20 MG/ML VIAL IV ONE (18:15)
[2017-07-07 18:29] VITALS: BP 175/102
--- NOTE | 2017-07-07 18:40 | ECGEPIP ---
Stationary ECG Study [facility] - ED Test Date: 2017-07-07 Pat Name: JACE SHELTON Department: Room: - Gender: F Tank Operator: NYDIA : 1975 Requested By: ALTAF Randhawa Order Number: [id number] Reading MD: Bijan Jeffrey Measurements Intervals Lavinia Rate: 80 P: 38 ND: 141 QRS: 4 QRSD: 113 T: 69 QT: 407 QTc: 469 Interpretive Statements SINUS RHYTHM MODERATE INTRAVENTRICULAR CONDUCTION DELAY ST DEVIATION AND MODERATE T-WAVE ABNORMALITY, CONSIDER ANTEROLATERAL ISCHEMIA COMPARED TO 04/19/17, ST-T CHNAGES LESS PROMINENT Electronically Signed On 07-07-2017 18:39:56 EDT by Bijan Jeffrey
--- NOTE | 2017-07-07 18:43 | ECGEPIP ---
Stationary ECG Study [facility] - ED Test Date: 2017-07-07 Pat Name: JACE SHELTON Department: Room: - Gender: F Feed Research Technician: JAvery : 1975 Requested By: PRIMO Barajas Order Number: [id number] Reading MD: Bijan Jeffrey Measurements Intervals Jber Rate: 87 P: 237 VT: 140 QRS: -13 QRSD: 153 T: -5 QT: 304 QTc: 368 Interpretive Statements SINUS RHYTHM WITH FIRST DEGREE AV BLOCK INDETERMINATE AXIS INTRAVENTRICULAR CONDUCTION DELAY INFERIOR MYOCARDIAL INFARCTION, PROBABLY OLD WITH POSTERIOR EXTENSION ANTEROLATERAL ST CHNAGES MORE PROMINENT COMPARED TO PRIOR ON SAME DATE Electronically Signed On 07-07-2017 18:43:28 EDT by Bijan Jeffrey
[2017-07-07 19:29] VITALS: BP 144/82
[2017-07-08] MEDS ORDERED: FLUO10CA9 PO (14:59)
[2017-07-08] MEDS ORDERED: ASPI81TA85 PO (14:59)
[2017-07-08] MEDS ORDERED: LISI-538 PO (14:59)
[2017-07-08] MEDS ORDERED: ATOR1TAB19 PO (14:59)
[2017-07-08] MEDS ORDERED: IBUP1TAB6 PO (14:59)
[2017-07-08] MEDS ORDERED: AMLO10TA2 PO (14:59)
== END 2017-07-07 20:25 | disposition home or self-care (01) ==
LOC: M ED 14:12
DX: R07.9 Chest pain, unspecified (principal); R11.0 Nausea; I11.9 Hypertensive heart disease without heart failure; E78.5 Hyperlipidemia, unspecified; Z79.899 Other long term (current) drug therapy

== ENCOUNTER 2017-07-08 11:32 | Observation (INO) | payer OTHER ==
[~2017-07-08] VITALS: Ht 170.2 cm; Wt 100.0 kg
[2017-07-08 12:29] LABS: BASO % 0.3 % (0.0-1.0); EOS % 0.5 % (0.0-3.0); LARGE UNSTAINED CELL # 0.2 K/mm3 (0.0-0.4); LYMPH # 1.6 K/mm3 (1.5-4.5); LYMPH % 19.3 % (24.0-44.0); MEAN CORPUSCULAR HEMOGLOBIN 32.5 pg (27.0-33.0); MEAN CORPUSCULAR HGB CONC 35.9 g/dl (32.0-36.5); MEAN CORPUSCULAR VOLUME 90.5 fl (80.0-96.0); MONO # 0.5 K/mm3 (0.0-0.8); MONO % 5.5 % (0.0-5.0); NEUTROPHILS # 6.1 K/mm3 (1.8-7.7); NEUTROPHILS % 72.4 % (36.0-66.0); PLATELET COUNT, AUTOMATED 281 k/mm3 (150-450); RED CELL DISTRIBUTION WIDTH 13.2 % (11.5-14.5); WHITE BLOOD COUNT 8.5 K/mm3 (4.0-10.0)
[2017-07-08 12:33] LABS: INR 0.97
--- NOTE | 2017-07-08 12:37 | REP ---
CT Head without contrast HISTORY: Infarction COMPARISON: None There is no intraparenchymal hemorrhage, acute infarct, mass or midline shift. The ventricular system is normal in appearance. There is no extra cerebral collection. There is no fracture. The visualized sinuses are clear. IMPRESSION: There is no intracranial lesion. Signed by Jim Stone MD 07/08/2017 12:28 P
--- NOTE | 2017-07-08 12:41 | REP ---
Chest one-view HISTORY: Weakness Comparison: 07/07/2017 The lungs are clear. The heart is normal in size. The pulmonary vasculature is normal in appearance. Impression: No acute disease. Signed by Jim Stone MD 07/08/2017 12:33 P
[2017-07-08 12:50] LABS: ANION GAP 10 MEQ/L (8-16); BLOOD UREA NITROGEN 5 MG/DL (7-18); CARBON DIOXIDE LEVEL 24 MEQ/L (21-32); CHLORIDE LEVEL 109 MEQ/L (98-107); CREATININE FOR GFR 0.82 MG/DL (0.55-1.02); GLOMERULAR FILTRATION RATE > 60.0 (>58); GLUCOSE, FASTING 90 MG/DL (70-105); SODIUM LEVEL 143 MEQ/L (136-145)
[2017-07-08] MEDS ORDERED: POTASSIUM CHLORIDE 10 MEQ SR TABLET PO ONE (13:45)
[2017-07-08] MEDS ORDERED: ASPIRIN 325 MG TAB PO ONE (14:00)
[2017-07-08] MEDS ORDERED: IBUP1TAB6 PO (14:59)
[2017-07-08] MEDS ORDERED: LISI-538 PO (14:59)
[2017-07-08] MEDS ORDERED: FLUO10CA9 PO (14:59)
[2017-07-08] MEDS ORDERED: AMLO10TA2 PO (14:59)
[2017-07-08] MEDS ORDERED: ASPI81TA85 PO (14:59)
[2017-07-08] MEDS ORDERED: ATOR1TAB19 PO (14:59)
--- NOTE | 2017-07-08 15:27 | REP ---
MRA BRAIN WITHOUT CONTRAST: HISTORY: Infarction. 3D TOF MR angiography was performed at the level of the [place]. There is no aneurysm, arteriovenous malformation or atherosclerotic lesion. Major intracranial vessels are patent. The vertebral arteries are equal in size. IMPRESSION: Normal MRA brain. Signed by Jim Stone MD 07/08/2017 03:30 P
--- NOTE | 2017-07-08 15:28 | REP ---
MR BRAIN WITHOUT CONTRAST: HISTORY: Infarction. COMPARISON: CT 07/08/2017. There are no areas of abnormal signal intensity in the brain. There is no intraparenchymal hemorrhage, infarct, mass, or midline shift. The sella [place] is partially empty. The ventricular system is normal in appearance. There is no extracerebral collection. The sinuses are clear. IMPRESSION: There is no intracranial lesion. Signed by Jim Stone MD 07/08/2017 03:31 P
[2017-07-08 17:29] VITALS: BP 156/90
[2017-07-08] MEDS ORDERED: IBUPROFEN 600 MG TAB PO SCH (18:00)
[2017-07-08 19:08] LABS: CHOLESTEROL LEVEL 203 MG/DL (<200); MAGNESIUM LEVEL 2.3 MG/DL (1.8-2.4); TRIGLYCERIDES LEVEL 140 MG/DL (<150)
--- NOTE | 2017-07-08 20:04 | HPEPDOC ---
General Date of Admission Jul 08, 2017 at 16:02 Other Providers PCP: No Attending Physician: EL FRANCISCO Chief Complaint The patient is a 41-year-old female admitted with a reason for visit of Dizziness. Source: Patient Exam Limitations: No limitations History of Present Illness Patient is a 41-year-old female with past medical history significant for hypertension, depression, anxiety presents to the emergency room today feeling dizzy. The patient's constellation of symptoms has started yesterday. Patient started having some chest pain in the morning. Denies any activity at this time. The pain was going on for approximately one hour. Was located in the middle of her chest and felt like somebody was sitting on it. This is going on for approximately one hour before she went to the ER. In the ER she reports having a a period of time where she was having slurred speech blurred vision and numb lips. She then had several cardiac markers and EKGs performed and ruled out ischemic changes at that point and was discharged home. When she arrived home patient describes being nauseous and vomiting 3 times. Patient is concerned about this since she has not vomited since she was a child. She then did not feel herself when she woke up this morning. She was very dizzy and felt like the room was spinning. She describes not being able to walk a straight line. While in the ER patient had a CT of the head and MRA and MRI of the head performed. All these tests were negative and showed no intracranial lesions. Patient had lab work performed. BMP revealed the patient had low potassium. Patient describes not eating since yesterday for lunch. She described that she just didn't want to eat and due to the nausea and vomiting. Saw the patient in the emergency room and discussed with patient admitting to hospital for observation. Home Medications Scheduled Amlodipine Besylate (Amlodipine Besylate) 10 Mg Tab, 10 MG PO DAILY, (Reported) Aspirin (Aspir-81) 81 Mg Tab, 81 MG PO DAILY, (Reported) Atorvastatin Calcium (Atorvastatin Calcium) 10 Mg Tab, 10 MG PO QHS, (Reported) Fluoxetine HCl (Fluoxetine HCl) 10 Mg Cap, 10 MG PO DAILY, (Reported) Ibuprofen (Ibuprofen) 600 Mg Tab, 600 MG PO Q6H, (Reported) WITH FOOD OR MILK Lisinopril (Lisinopril) 20 Mg Tab, 20 MG PO DAILY, (Reported) Allergies Coded Allergies: No Known Allergies (Unverified , 07/17/15) Past Medical History Medical History 1. Hypertension 2. Anxiety 3. Depression Surgical History 1. 2 previous C-sections 2. Hysterectomy 3. Low back surgery 4. Uterine ablation 5. Cystoscopy Family History Mother: Alive, diabetes Father: Alive CHF Social History * Smoker: Denies Alcohol: Denies Drugs: denies Recent Travel/Sick Contacts: Denies: Recent travel, Recent sick contacts Review of Symptoms Constitutional: Denies: Chills, Fever Eyes: Denies: Vision change ENT: Denies: Head Aches Skin: Denies: Rash, Lesions Pulmonary: Denies: Dyspnea, Cough Cardiovascular: Denies: Chest Pain, Palpitations Gastrointestinal: Reports: Nausea (previous nausea. Done in the ER.), Vomiting (3. No blood.), Denies: Abdominal Pain Genitourinary: Denies: Dysuria, Frequency Hematologic: Denies: Bruising, Bleeding Excessively Endocrine: Denies: Polydipsia, Polyphagia Musculoskeletal: Denies: Neck Pain, Back Pain Neurological: Denies: Weakness, Numbness, Change in speech Psych: Reports: Mood Normal Physical Examination General Exam: Positive: Alert, Cooperative, No Acute Distress Eye Exam: Positive: PERRLA, EOMI, Negative: Sclera icteric, Ptosis ENT Exam: Positive: Atraumatic, Mucous membr. moist/pink, Pharynx Normal, Tongue Midline, Nares Patent Neck Exam: Positive: Supple, Negative: JVD, thyromegaly Chest Exam: Positive: Clear to auscultation, Normal air movement Heart Exam: Positive: Rate Normal, Normal S1, Normal S2, Negative: Tachycardic Abdomen Exam: Positive: Normal bowel sounds, Soft, Negative: Tenderness Extremity Exam: Negative: Clubbing, Cyanosis Skin Exam: Positive: Nl turgor and temperature Neuro Exam: Positive: Normal Speech, Strength at 5/5 X4 ext, Normal Tone, Sensation Intact, Cranial Nerves 3-12 NL, Other (negative Babinski test bilaterally. [id number]-[id number] test negative. Rapid alternating moving negative.) Psych Exam: Positive: Mental status NL, Mood NL, Oriented x 3 (oriented to person place and time. Answered who the business services vice president was.) Vital Signs Vital Signs Date Time Temp Pulse Resp B/P (MAP) Pulse Ox O2 Delivery O2 Flow Rate FiO2 8/24/17 15:02 64 100 07/08/17 14:57 155/95 (115) 07/08/17 11:34 98.4 18 Room Air Height (in): 67 Weight (kg): 100 BMI (kg): 34.5 Laboratory Data Labs 24H Laboratory Tests 2 07/08/17 12:16: White Blood Count 8.5, Red Blood Count 4.09, Hemoglobin 13.3, Hematocrit 37.0, Mean Corpuscular Volume 90.5, Mean Corpuscular Hemoglobin 32.5, Mean Corpuscular Hemoglobin Concent 35.9, Red Cell Distribution Width 13.2, Platelet Count 281, Neutrophils (%) (Auto) 72.4H, Lymphocytes (%) (Auto) 19.3L, Monocytes (%) (Auto) 5.5H, Eosinophils (%) (Auto) 0.5, Basophils (%) (Auto) 0.3 , Neutrophils # (Auto) 6.1, Lymphocytes # (Auto) 1.6, Monocytes # (Auto) 0.5, Eosinophils # (Auto) 0.0, Basophils # (Auto) 0.0, Large Unclassified Cells % 2.0 , Large Unclassified Cells # 0.2, Prothrombin Time 13.0, Prothromb Time International Ratio 0.97, Activated Partial Thromboplast Time 31.2, Anion Gap 10 , Glomerular Filtration Rate > 60.0, Blood Urea Nitrogen 5#L, Creatinine 0.82, Sodium Level 143, Potassium Level 3.0L, Chloride Level 109H, Carbon Dioxide Level 24, Calcium Level 9.0, Total Creatine Kinase 111, Creatine Kinase MB 1.0, Creatine Kinase MB Relative Index 0.90, Troponin I < 0.02 CBC/BMP Laboratory Tests 07/08/17 12:16 Red Blood Count 4.09, Mean Corpuscular Volume 90.5, Mean Corpuscular Hemoglobin 32.5, Mean Corpuscular Hemoglobin Concent 35.9, Red Cell Distribution Width 13.2 , Neutrophils (%) (Auto) 72.4 H, Lymphocytes (%) (Auto) 19.3 L, Monocytes (%) ( Auto) 5.5 H, Eosinophils (%) (Auto) 0.5, Basophils (%) (Auto) 0.3, Neutrophils # (Auto) 6.1, Lymphocytes # (Auto) 1.6, Monocytes # (Auto) 0.5, Eosinophils # ( Auto) 0.0, Basophils # (Auto) 0.0, Calcium Level 9.0, Total Creatine Kinase 111 Assessment/Plan 1. Possible TIA: Patient described having symptoms that sound like a possible TIA yesterday. Dr. Kelly was consulted, neurology.Appreciate his help in management of this patient this time. Patient is to be admitted for observation. Will be getting a TIA/CVA workup. Echocardiogram and carotid ultrasound ordered to discover source of emboli. Patient will be on PCU on telemetry to look for arrhythmias. Troponin will be continued to be trended every 6 hours. Patient is currently on a statin. Her lipids will be checked. Patient will need to be on a high intensity statin to receive benefit. May increase statin dose. Physical therapy and occupational therapy ordered. Appreciate their help in management of this patient this time. 2. Possible orthostatic hypotension Patient describes dizziness since this morning. Mentions that it does happen more when she stands up. Patient has a history of hypertension and takes couple blood pressure medications. Ordering orthostatic vitals to assess this. May hold or decrease patient's blood pressure medications based on this. Continuing blood pressure medicine at this time. 3. Hypertension Continuing patient's home blood pressure medications at this time. 4. Depression/anxiety Continue patient's home medications at this time. 5. Full CODE STATUS Plan / VTE VTE Prophylaxis Ordered?: Yes (Lovenox) GME ATTESTATION GME ATTESTATION My preceptor for this patient encounter was Dr. Jacobson and she was physically present in the building during the encounter and was fully available. As needed , all aspects of the patient interview, examination, medical decision making process, and medical care plan development were reviewed and approved by the preceptor. Preceptor is aware and concurs with the plan as stated in the body of this note and will attest to such by his/her cosignature. ATTENDING NOTE I have seen and examined the above patient and agree with Dr. Davis's documented assessment and plan. LALO DAVIS DO Jul 08, 2017 17:33 EL FRANCISCO Jul 11, 2017 15:46
[2017-07-08] MEDS ORDERED: ATORVASTATIN 10 MG TAB PO SCH (21:00)
[2017-07-09] MEDS ORDERED: FLUoxetine 10 MG CAP PO SCH (09:00)
[2017-07-09] MEDS ORDERED: POTASSIUM CHLORIDE 10 MEQ SR TABLET PO SCH (09:00)
[2017-07-09] MEDS ORDERED: ASPIRIN 81 MG ENTERIC TAB PO SCH (09:00)
[2017-07-09] MEDS ORDERED: LISINOPRIL 20 MG TAB PO SCH (09:00)
[2017-07-09] MEDS ORDERED: ENOXAPARIN 40 MG/0.4 ML SYRINGE (J1650) SC SCH (09:00)
[2017-07-09] MEDS ORDERED: amLODIPine 10 MG TAB PO SCH (09:00)
--- NOTE | 2017-07-09 10:36 | ECGEPIP ---
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
--- NOTE | 2017-07-09 16:29 | DS.PDOC ---
Discharge Summary General Date of Admission Jul 08, 2017 at 16:02 Date of Discharge 07/08/17 Attending Physician: EL FRANCISCO Discharge Summary PCP: Unknown PROCEDURES PERFORMED DURING STAY: None. ADMITTING DIAGNOSES: 1. Possible TIA 2. Possible orthostatic hypotension 3. Hypertension 4. Depression/ Anxiety COMPLICATIONS/CHIEF COMPLAINT: Dizziness. HISTORY OF PRESENT ILLNESS: See H&P HOSPITAL COURSE: Patient shortly after admission while still in the ER decided to leave AMA. Discussed risk with patient that were not limited but included possible stroke and . Patient expressed understanding of these risks and signed appropriate AMA paperwork. DISCHARGE MEDICATIONS: Please see below. ALLERGIES: Please see below. PHYSICAL EXAMINATION ON DISCHARGE: See H&P LABORATORY DATA: Please see below. IMAGING: See H&P PROGNOSIS: Patient left AMA. Discussed risks. ACTIVITY: As tolerated. DISCHARGE PLAN: AGAINST MEDICAL ADVICE. DISPOSITION: 07 Against Medical Advice. DISCHARGE INSTRUCTIONS: 1. Patient with AMA. 2. Patient can return to the ER if symptoms worsen DISCHARGE CONDITION: Stable. TIME SPENT ON DISCHARGE: Greater than 30 minutes. Vital Signs/I&Os Vital Signs Date Time Temp Pulse Resp B/P (MAP) Pulse Ox O2 Delivery O2 Flow Rate FiO2 07/08/17 18:17 74 99 07/08/17 17:29 156/90 (112) 07/08/17 11:34 98.4 18 Room Air Laboratory Data Labs 24H Laboratory Tests 2 07/08/17 18:20: Magnesium Level 2.3, Total Creatine Kinase 100, Creatine Kinase MB 1.0, Creatine Kinase MB Relative Index 1.00, Troponin I < 0.02, Triglycerides Level 140, LDL Cholesterol 131.0H, Total Cholesterol 203H, Non-HDL Cholesterol (LDL + VLDL) 159, Total HDL Cholesterol 44, Cholesterol/HDL Ratio 4.613 Discharge Medications Scheduled Amlodipine Besylate (Amlodipine Besylate) 10 Mg Tab, 10 MG PO DAILY, (Reported) Aspirin (Aspir-81) 81 Mg Tab, 81 MG PO DAILY, (Reported) Atorvastatin Calcium (Atorvastatin Calcium) 10 Mg Tab, 10 MG PO QHS, (Reported) Fluoxetine HCl (Fluoxetine HCl) 10 Mg Cap, 10 MG PO DAILY, (Reported) Ibuprofen (Ibuprofen) 600 Mg Tab, 600 MG PO Q6H, (Reported) WITH FOOD OR MILK Lisinopril (Lisinopril) 20 Mg Tab, 20 MG PO DAILY, (Reported) Allergies Coded Allergies: No Known Allergies (Unverified , 07/17/15) GME ATTESTATION GME ATTESTATION My preceptor for this patient encounter was Dr. Jacobson and she was physically present in the building during the encounter and was fully available. As needed , all aspects of the patient interview, examination, medical decision making process, and medical care plan development were reviewed and approved by the preceptor. Preceptor is aware and concurs with the plan as stated in the body of this note and will attest to such by his/her cosignature. ATTENDING NOTE I have seen and examined the above patient and personally discussed with her the risks to leaving AMA, including but not limited to potential stroke and even . She expressed understanding of these risks. LALO DAVIS DO Jul 09, 2017 16:29 EL FRANCISCO Jul 11, 2017 15:48
--- NOTE | 2017-07-11 12:58 | CR ---
DATE OF CONSULTATION: 07/08/2017 REQUESTING PROVIDER: Karen Mar MD Luana Gray is seen for consultation today. The patient is a 41-year-old female with past psychiatric illnesses including major depression with suicidal ideations and history of suicide attempt in 2014. The patient presented to [facility] yesterday with chest pain and intermittently described episodes of slurred speech. She clarifies today that the episodes of speech disturbance was actually stuttering speech. The patient denies having any headache. The patient states that at the present time that she feels that she is back to her normal baseline self. She was complaining of abnormal gait and describes episodes of a room spinning like phenomenon when she turns her head. This has been ongoing for several months. The patient is agreeable to receive outpatient vestibular therapy for this. MRI of the brain was completed, which did not show any acute stroke. MR angiogram of the head was also negative. Head CT was also negative. The patient had a negative troponin today. Initially, her blood pressure was extremely high at 189/101. The patient was quite anxious. This was treated and her symptoms did improve. The patient states that she is no longer having any issues with her speech or her gait. I was informed by the admitting provider that later in the emergency department stay the patient left the hospital against medical advice. She denied any suicidal or homicidal ideations upon my interview with her. PAST MEDICAL HISTORY: 1. Major depressive disorder with suicidal attempt in 2014. 2. Suicidal ideation in March 2017. 3. Chronic low back pain. 4. Hypertension. 5. Fibromyalgia. 6. History of constipation. 7. Urinary retention relieved by back surgery. 8. History of bradycardia, seen by cardiology with ongoing prolonged QTC intervals, followed by Dr. Mccartney. PAST SURGICAL HISTORY: Lumbar spinal surgery with plans to repeat surgery for ongoing chronic back pain. section, uterine ablation, hysterectomy, low back surgery, cystoscopy. SOCIAL HISTORY: The patient denies substance use. Uses alcohol recreationally. Denies tobacco use. REVIEW OF SYSTEMS: 14-point review of systems obtained and is negative except as per history of present illness. HOME MEDICATIONS: As documented in the electronic record. ALLERGIES: None. PHYSICAL EXAMINATION: Blood pressure 155/95, pulse rate is 64, respiratory rate is 18, temperature is afebrile. Oxygenation 100% on room air. Current height 5 feet 7 inches, current weight is 100 kg. The patient is awake, alert, oriented person, place and time. Speech, language, and comprehension are intact. Pupils are 3 mm round, reactive to light. Deep tendon reflexes are 2+ throughout. Sensation V1, V2-V3 is intact to light touch. No facial asymmetry to activation. Palate elevates symmetrically. Tongue is midline. No weakness of sternocleidomastoids. No pronator drift. Strength is 5/5, including bilateral deltoids, biceps, triceps, handgrip, iliopsoas, quadriceps and tibialis. Deep tendon reflexes are 2+. Romberg testing is negative. Gait is normal. Coordination; normal [id number] without any signs of ataxia or dysmetria. Sensory is intact to light touch and temperature throughout the entire body. ASSESSMENT: 1. Transient stuttering speech. 2. Long standing history of psychiatric illnesses, including poor impulse control, ineffective coping, major depression with suicidal attempt, suicidal ideations, anxiety with prior psychiatric documentation of history of substance abuse, limited support At the present time, there does not appear to be any neurological deficits on examination. The patient's speech, described as stuttering is likely psychiatric in nature related to anxiety as opposed to a stroke related issue. The patient does indeed have risk factor for stroke, including uncontrolled hypertension, which did improve during the hospitalization. The patient does experience episodic vertiginous feeling when turning her head and does not have any central causes based on MRI. Would recommend outpatient vestibular physical therapy. Recommend meclizine 25 mg by mouth every 8 hours as needed for vertigo. The patient is to followup in the [facility] Neurology office 4 to 6 weeks after discharge. edited: 07/11/2017 1219 colby POOLE
== END 2017-07-08 18:36 | disposition left against medical advice (07) ==
LOC: M ED 11:32 → M ED INP 16:02
PROVIDERS: ADMIT Hospitalist; ATTEND Internal Medicine
DX: R42 Dizziness and giddiness (principal); R47.89 Other speech disturbances; R26.89 Other abnormalities of gait and mobility; I10 Essential (primary) hypertension; E87.6 Hypokalemia; F32.9 Major depressive disorder, single episode, unspecified; F41.9 Anxiety disorder, unspecified; Z91.5 Personal history of self-harm; M54.5 Low back pain; G89.29 Other chronic pain; M79.7 Fibromyalgia; R00.1 Bradycardia, unspecified; I45.81 Long QT syndrome; Z79.899 Other long term (current) drug therapy; Z79.82 Long term (current) use of aspirin

== ENCOUNTER 2017-08-20 13:51 | Emergency (ER) | payer OTHER ==
[~2017-08-20] VITALS: Ht 170.2 cm; Wt 100.0 kg
[~2017-08-20 13:51] MED LIST changes: +ASPI81TA85 PO; +IBUP1TAB6 PO
[2017-08-20] MEDS ORDERED: BUPR15TA PO (13:58)
[2017-08-20] MEDS ORDERED: ASPIRIN 81 MG CHEW TABLET PO ONE (15:00)
[2017-08-20 15:06] LABS: BASO % 0.2 % (0.0-1.0); EOS # 0.1 10^3/uL (0.0-0.50); EOS % 0.9 % (0.0-3.0); IMMATURE GRANULOCYTE % 0.4 % (0-0); LYMPH # 2.6 10^3/uL (1.5-4.5); MEAN CORPUSCULAR HGB CONC 34.2 g/dl (32.0-36.5); MEAN CORPUSCULAR VOLUME 90.7 fl (80.0-96.0); MONO # 0.6 10^3/uL (0.0-0.8); MONO % 5.7 % (0.0-5.0); NEUTROPHILS # 7.4 10^3/uL (1.8-7.7); NEUTROPHILS % 68.8 % (36.0-66.0); PLATELET COUNT, AUTOMATED 280 10^3/uL (150-450); RED CELL DISTRIBUTION WIDTH 13.4 % (11.5-14.5); WHITE BLOOD COUNT 10.7 10^3/uL (4.0-10.0)
[2017-08-20 15:23] LABS: ANION GAP 8 MEQ/L (8-16); BLOOD UREA NITROGEN 15 MG/DL (7-18); CALCIUM LEVEL 8.8 MG/DL (8.5-10.1); CARBON DIOXIDE LEVEL 25 MEQ/L (21-32); CHLORIDE LEVEL 105 MEQ/L (98-107); CREATININE FOR GFR 0.73 MG/DL (0.55-1.02); GLOMERULAR FILTRATION RATE > 60.0 (>58); GLUCOSE, FASTING 110 MG/DL (70-105); POTASSIUM SERUM 3.9 MEQ/L (3.5-5.1); SODIUM LEVEL 138 MEQ/L (136-145)
--- NOTE | 2017-08-20 15:31 | REP ---
Portable chest: Single view. History: Chest pain. Comparison study: July 08, 2017. Findings: EKG monitoring electrodes overlie the chest. Lungs are well inflated and clear. Pleural angles are sharp. Heart is not enlarged. Impression: No active disease. Signed by Brigido Gibson MD 08/20/2017 03:22 P
[2017-08-20 18:18] VITALS: BP 149/100
--- NOTE | 2017-08-21 05:41 | ECGEPIP ---
Stationary ECG Study [facility] - ED Test Date: 2017-08-20 Pat Name: JACE SHELTON Department: Room: - Gender: F Tapper Shank: namita : 1975 Requested By: Bijan Joshi Order Number: [id number] Reading MD: Bijan Jeffrey Measurements Intervals [place] Rate: 55 P: 51 [place]: 143 QRS: 8 QRSD: 90 T: 58 QT: 432 QTc: 414 Interpretive Statements SINUS BRADYCARDIA NONSPECIFIC T-WAVE ABNORMALITY SIMILAR TO 07/08/17 Electronically Signed On 08-21-2017 5:41:23 EDT by Bijan Jeffrey
--- NOTE | 2017-08-21 05:44 | ECGEPIP ---
Stationary ECG Study [facility] - ED Test Date: 2017-08-20 Pat Name: JACE SHELTON Department: Room: - Gender: F Dance Instructor: adrianna : 1975 Requested By: Bijan Joshi Order Number: [id number] Reading MD: Bijan Jeffrey Measurements Intervals [place] Rate: 67 P: 46 [place]: 140 QRS: 10 QRSD: 96 T: 64 QT: 410 QTc: 434 Interpretive Statements SINUS RHYTHM NONSPECIFIC T-WAVE ABNORMALITY SIMILAR TO PRIOR ON SAME DATE Electronically Signed On 08-21-2017 5:44:07 EDT by Bijan Jeffrey
== END 2017-08-20 18:19 | disposition home or self-care (01) ==
LOC: M ED 13:51
DX: R07.89 Other chest pain (principal); F17.210 Nicotine dependence, cigarettes, uncomplicated; Z79.82 Long term (current) use of aspirin; Z79.899 Other long term (current) drug therapy

== ENCOUNTER 2025-02-23 15:29 | Emergency (ER) | payer MEDICAID, OTHER ==
[~2025-02-23] VITALS: Ht 170.2 cm; Wt 102.6 kg
[~2025-02-23 15:29] MED LIST changes: -AMLO10TA2 PO; +AMLO1TAB24 PO; +AMLO1TAB25 PO; -AMLO5TAB2 PO; +ASPI-569 PO; +ASPI81CH32 PO; -ASPI81TA PO; -ASPI81TA85 PO; +ASPI81TA86 PO; -ASPI81TAEC PO; +BUPR-70 PO; -BUPR100T3 PO; +BUPR15TA PO; +CYCL-707 PO; -CYCL10TA PO; +FLUO-365; +FLUO-365 PO; -FLUO20CA19; -FLUO20CA19 PO; +GABA-1172 PO; +GABA-1490 PO; -GABA-282 PO; -GABA-283 PO; +GABA-284 PO; -GABA600T PO; -LISI-538 PO; -LISI10TA2 PO; +LISI10TA24 PO; -LISI20TA PO; +LISI20TA33 PO; +LISI20TA35 PO; +METH-1164 PO; -METH1TAB40 PO; +TIZA4CAP PO; -TIZA4CAP3 PO; +TRAZ-252 PO; -TRAZ50TA11 PO
[2025-02-23] MEDS ORDERED: ATOR1TAB21 (15:39)
[2025-02-23] MEDS ORDERED: HYDR-3490 (15:39)
[2025-02-23] MEDS ORDERED: LISI40TA4 (15:39)
[2025-02-23] MEDS ORDERED: LIDOCAINE W/EPINEPHRINE 1% 20ML VIAL SC ONE (16:10)
[2025-02-23] MEDS ORDERED: DOXY-442 PO (16:13)
[2025-02-23 16:42] LABS: BASO % 0.4 % (0.0-1.0); EOS # 0.2 10^3/uL (0.0-0.5); EOS % 1.7 % (0.0-3.0); HEMATOCRIT 39.4 % (36.0-47.0); HEMOGLOBIN 13.5 g/dl (12.0-15.5); LYMPH # 2.6 10^3/uL (1.5-5.0); LYMPH % 28.8 % (24.0-44.0); MEAN CORPUSCULAR HEMOGLOBIN 30.8 pg (27.0-33.0); MEAN CORPUSCULAR HGB CONC 34.3 g/dl (32.0-36.5); MEAN CORPUSCULAR VOLUME 89.7 fl (80.0-96.0); MONO # 0.5 10^3/uL (0.0-0.8); MONO % 5.9 % (2.0-8.0); NEUTROPHILS # 5.8 10^3/uL (1.5-8.5); NEUTROPHILS % 62.9 % (36.0-66.0); PLATELET COUNT, AUTOMATED 227 10^3/uL (150-450); RED BLOOD COUNT 4.39 10^6/uL (4.00-5.40); WHITE BLOOD COUNT 9.2 10^3/uL (4.0-10.0)
[2025-02-23 17:04] LABS: BLOOD UREA NITROGEN 15 MG/DL (9-23); CALCIUM LEVEL 8.9 MG/DL (8.5-10.1); CARBON DIOXIDE LEVEL 27 MMOL/L (20-31); CHLORIDE LEVEL 105 MMOL/L (98-107); CREATININE FOR GFR 0.58 MG/DL (0.55-1.30); GLOMERULAR FILTRATION RATE > 90.0 (>51); GLUCOSE, FASTING 134 MG/DL (60-100); POTASSIUM SERUM 3.7 MMOL/L (3.5-5.1); SODIUM LEVEL 142 MMOL/L (136-145)
[2025-02-23 17:07] LABS: FREE T4 1.06 NG/DL (0.89-1.76); THYROID STIMULATING HORMONE 2.909 uIU/ML (0.55-4.78)
[2025-02-23] MEDS ORDERED: CHLO125TA PO (17:33)
[2025-02-23] MEDS ORDERED: HYDR25TA87 PO (17:34)
[2025-02-23 17:51] VITALS: BP 198/111
[2025-02-23] MEDS: **hydrALAZINE HCL** 25 MG TAB PO ONE (17:51)
[2025-02-23] MEDS: CHLORTHALIDONE 25 MG TAB PO ONE (17:51)
[2025-02-23 18:51] VITALS: BP 208/109; TEMP 98.3; O2SAT 97
[2025-03-02 15:03] LABS: ALDOS/RENIN RATIO 10.1 Ratio (0.9-28.9); ALDOSTERONE LC 10 ng/dL; RENIN ACTIVITY 0.99 ng/mL/h (0.25-5.82)
== END 2025-02-23 19:22 | disposition home or self-care (01) ==
LOC: M ED 15:29
DX: I16.0 Hypertensive urgency (principal); R00.1 Bradycardia, unspecified; E78.00 Pure hypercholesterolemia, unspecified; E03.9 Hypothyroidism, unspecified; F41.9 Anxiety disorder, unspecified; F32.A Depression, unspecified; Z79.899 Other long term (current) drug therapy